=== PATIENT | male | born 1940 | race Caucasian/White ===

== ENCOUNTER 2017-03-15 17:47 | Inpatient (IN) | payer MEDICARE, BC ==
[~2017-03-15] VITALS: Ht 172.7 cm; Wt 72.2 kg
[2017-03-15] VITALS (8 sets, daily range): BP systolic 95–115; BP diastolic 46–53; PULSE 63–76; RESP 12–18; TEMP 98–99.2; O2SAT 93–100
--- NOTE | 2017-03-15 18:34 | RADRPT ---
EXAM DATE/TIME: 03/15/2017 18:02 [facility] COMPARISON: No previous studies available for comparison. INDICATIONS : Syncopal episode. MEDICAL HISTORY : None. SURGICAL HISTORY : CABG. ENCOUNTER: Initial ACUITY: 1 day PAIN SCORE: Non-responsive. LOCATION: Bilateral chest FINDINGS: A single view of the chest demonstrates the lungs to be symmetrically aerated without evidence of mas s, infiltrate or effusion. The cardiomediastinal contours are unremarkable. There is evidence of pre vious cardiothoracic surgery. Osseous structures are intact. There are degenerative changes especiall y of the right shoulder joint. CONCLUSION: No acute disease. Chadd Vásquez MD on March 15, 2017 at 18:32 Board Certified Radiologist. This report was verified electronically.
[2017-03-15] MEDS ORDERED: SUCR1TAB PO (18:37)
[2017-03-15] MEDS ORDERED: MIRTA15 PO (18:37)
[2017-03-15] MEDS ORDERED: ALBUAER3 INH (18:37)
[2017-03-15] MEDS ORDERED: LISI2.5T3 PO (18:37)
[2017-03-15] MEDS ORDERED: SERT25TA83 PO (18:37)
[2017-03-15] MEDS ORDERED: SERT-132 PO (18:37)
[2017-03-15] MEDS ORDERED: HYDR1CAP30 PO (18:37)
[2017-03-15] MEDS ORDERED: LOPE2CAP PO (18:37)
[2017-03-15] MEDS ORDERED: FERR325C PO (18:37)
[2017-03-15] MEDS ORDERED: LEVO50TA4 PO (18:37)
[2017-03-15] MEDS ORDERED: CARV3.12 PO (18:37)
[2017-03-15] MEDS ORDERED: RANI150T PO (18:37)
[2017-03-15] MEDS ORDERED: FURO1TAB60 PO (18:37)
[2017-03-15] MEDS ORDERED: WARF-60 PO (18:37)
[2017-03-15] MEDS ORDERED: DAILTAB PO (18:37)
[2017-03-15] MEDS ORDERED: IPRASOL INH (18:37)
[2017-03-15] MEDS ORDERED: POTA-163 PO (18:37)
--- NOTE | 2017-03-15 18:38 | RADRPT ---
EXAM DATE/TIME: 03/15/2017 18:21 [facility] COMPARISON: No previous studies available for comparison. INDICATIONS : Generalized weakness. RADIATION DOSE: 61.70 CTDIvol (mGy) ; Patient motion MEDICAL HISTORY : None SURGICAL HISTORY : None. ENCOUNTER: Initial ACUITY: 1 day PAIN SCALE: 0/10 LOCATION: chest TECHNIQUE: Multiple contiguous axial images were obtained of the head. Using automated exposure control and adj ustment of the mA and/or kV according to patient size, radiation dose was kept as low as reasonably a chievable to obtain optimal diagnostic quality images. DICOM format image data is available electro nically for review and comparison. FINDINGS: CEREBRUM: The ventricles are normal for age. There is bilateral cortical atrophy. 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 No evidence of midline shift, mass lesion, hemorrhage or acute infarction. No ex tra-axial fluid collections are seen. POSTERIOR FOSSA: The cerebellum and brainstem are intact. The 4th ventricle is midline. The cerebellopontine angle i s unremarkable. EXTRACRANIAL: The visualized portion of the orbits is intact. SKULL: The calvaria is intact. No evidence of skull fracture. CONCLUSION: 1. No acute intracranial hemorrhage. 2. 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 3. Bilateral cortical atrophy. Chadd Vásquez MD on March 15, 2017 at 18:35 Board Certified Radiologist. This report was verified electronically.
[2017-03-15 18:39] LABS: AUTOMATED NEUTROPHIL # 13.2 TH/MM3 (1.8-7.7); BASOPHIL # 0.1 TH/MM3 (0-0.2); BASOPHIL % 0.9 % (0.0-2.0); EOSINOPHIL % 0.1 % (0.0-4.0); LYMPH % 8.3 % (9.0-44.0); LYMPHOCYTE # 1.3 TH/MM3 (1.0-4.8); MEAN CELL VOLUME 86.4 FL (80.0-100.0); MEAN CORPUSCULAR HEMOGLOBIN 28.9 PG (27.0-34.0); MEAN CORPUSCULAR HGB CONC 33.5 % (32.0-36.0); MONO % 5.2 % (0.0-8.0); NEUT % 85.5 % (16.0-70.0); PLATELET COUNT 195 TH/MM3 (150-450); RED BLOOD COUNT 1.77 MIL/MM3 (4.50-5.90); RED CELL DISTRIBUTION WIDTH 24.1 % (11.6-17.2); WHITE BLOOD COUNT 15.4 TH/MM3 (4.0-11.0)
[2017-03-15 18:41] LABS: CHLORIDE 109 MEQ/L (98-107); POTASSIUM 4.3 MEQ/L (3.5-5.1); SODIUM (NA) 141 MEQ/L (136-145)
[2017-03-15 18:43] LABS: HEMATOCRIT 15.3 % (39.0-51.0); HEMO FLAGS DIFF FINAL
[2017-03-15 18:44] LABS: ANION GAP 11 MEQ/L (5-15); BICARBONATE 20.7 MEQ/L (21.0-32.0)
[2017-03-15 18:45] LABS: BLOOD UREA NITROGEN 105 MG/DL (7-18)
[2017-03-15 18:47] LABS: ALT (GPT) 16 U/L (12-78)
[2017-03-15 18:48] LABS: AST (GOT) 15 U/L (15-37); GLOMERULAR FILTRATION RATE 21 ML/MIN (>89)
[2017-03-15 18:49] LABS: TOTAL BILIRUBIN ADULT 0.3 MG/DL (0.2-1.0)
[2017-03-15 18:50] LABS: ALKALINE PHOSPHATASE 68 U/L (45-117)
[2017-03-15 19:00] LABS: CREATINE KINASE 73 U/L (39-308)
[2017-03-15] MEDS ORDERED: SODIUM CHLORID 0.9% 500 ML INJ 500 ML IV ONE (19:00)
[2017-03-15] MEDS ORDERED: PHYTONADIONE 10 MG/ML VIAL SQ ONE (19:00)
[2017-03-15] MEDS ORDERED: SODIUM CHLOR 0.9% 250 ML INJ 250 ML IV ONE ×2 (19:00→19:45)
[2017-03-15 19:18] LABS: APTT (PATIENT) 79.1 SEC (24.3-30.1)
[2017-03-15 19:21] LABS: PROTHROMBIN TIME - PATIENT GREATER THAN 180.0 SEC (9.8-11.6)
[2017-03-15 19:22] LABS: INTERNATIONAL NORMALIZED RATIO 17.1 RATIO
[2017-03-15 19:58] LABS: BLOOD, URINE NEG (NEG); GLUCOSE,URINE NEG (NEG); KETONE, URINE NEG (NEG); NITRITE,URINE NEG (NEG)
[2017-03-15 20:05] LABS: METHOD OF COLLECTION CATH; URINE COLOR YELLOW (YELLW/STRAW)
[2017-03-15 20:13] LABS: MUCUS URINE OCC /lpf (OCC)
[2017-03-15 20:14] LABS: COMMENT (UR) CULT NOT INDICATED; CULTURE IF INDICATED CULT NOT INDICATED; RBC, URINE 0-3 /hpf (0-3); SQUAMOUS EPITHELIAL CELL URINE 0-5 /hpf (0-5)
[2017-03-15] MEDS ORDERED: PROTHROMBIN COMPLEX IV ONE (20:30)
--- NOTE | 2017-03-15 21:03 | PD ---
HPI Chief Complaint: General Weakness Time Seen by Provider: 17:53 Travel History International Travel<30 days: No Contact w/Intl Traveler<30days: No Traveled to known affect area: No History of Present Illness HPI Patient is a 76-year-old male who is brought in from alf due to diarrhea and generalized weakness. Patient does have some underlying dementia, but is able to say that he is just feeling overall weak. He has been having some diarrhea. Denies any pain at this time. He says he does not know if he has been taking any antibiotics. He denies any abdominal pain. He has not had any nausea or vomiting. He is unable to provide any more history. PFSH Past Medical History Anemia: Yes Depression: Yes Cardiovascular Problems: Yes (HEART FAILURE) Congestive Heart Failure: Yes COPD: Yes GERD: Yes Hypertension: Yes Respiratory: Yes (PE) Thyroid Disease: Yes Tetanus Vaccination: Unknown Past Surgical History Surgical History: Unable to Obtain Social History Tobacco Use: No Allergies-Medications (Allergen,Severity, Reaction): Coded Allergies: No Known Allergies (Unverified , 03/15/17) Reported Meds & Prescriptions Reported Meds & Active Scripts Active Reported Hydroxyzine Pamoate 25 Mg Cap 25 Mg PO Q6H PRN Loperamide (Loperamide HCl) 2 Mg Cap 2 Mg PO DIRECTED PRN One capsule after each loose stool. Not to exceed 8 capsules per day. Proair Hfa 8.5 GM Inh (Albuterol Sulfate) 90 Mcg/Act Aer 1 Puff INH Q4H PRN 108 mcg/actuation Lasix (Furosemide) 40 Mg Tab 40 Mg PO DAILY Levothyroxine (Levothyroxine Sodium) 50 Mcg Tab 50 Mcg PO DAILY Potassium Chloride ER (Potassium Chloride) 20 Meq Tab 20 Meq PO DAILY Lisinopril 2.5 Mg Tab 2.5 Mg PO DAILY Ranitidine (Ranitidine HCl) 150 Mg Tab 150 Mg PO DAILY Sucralfate 1 Gram Tab 1 Gm PO BID on empty stomach Sertraline (Sertraline HCl) 50 Mg Tab 50 Mg PO DAILY Daily-Juan Carlos/Iron/Beta-Antonio (Multiple Vitamins W/ Iron) 1 Tab Tab 1 Tab PO DAILY Sertraline (Sertraline HCl) 25 Mg Tab 25 Mg PO DAILY Carvedilol 3.125 Mg Tab 3.125 Mg PO BID Duoneb (Ipratropium-Albuterol Neb) 0.5-2.5 Mg/3 Ml Neb 1 Nebule INH Q12HR Warfarin 6 Mg Tab 6 Mg PO DAILY Mirtazapine 15 Mg Tab 15 Mg PO HS Iron (Ferrous Sulfate) 325 Mg Cap 325 Mg PO DAILY Review of Systems ROS Limitations: Clinical Condition General / Constitutional: No: Fever Cardiovascular: No: Chest Pain or Discomfort Respiratory: No: Shortness of Breath Gastrointestinal: Positive: Diarrhea, No: Abdominal Pain Musculoskeletal: No: Pain Neurologic: Positive: Weakness Physical Exam Narrative GENERAL: Awake and alert, in no acute distress. SKIN: Focused skin assessment warm/dry. Appears very pale. HEAD: Atraumatic. Normocephalic. EYES: Pupils equal and round. No scleral icterus. Extraocular movements intact. ENT: Mucous membranes pink and moist. NECK: Trachea midline. No JVD. CARDIOVASCULAR: Regular rate and rhythm. No murmur appreciated. RESPIRATORY: No accessory muscle use. Clear to auscultation. Breath sounds equal bilaterally. GASTROINTESTINAL: Abdomen soft, non-tender, nondistended. MUSCULOSKELETAL: No obvious deformities. No clubbing. No cyanosis. No edema. NEUROLOGICAL: Awake and alert. No obvious cranial nerve deficits. Motor grossly within normal limits. Normal speech. PSYCHIATRIC: Appropriate mood and affect; insight and judgment normal. Data Data Last Documented VS Vital Signs Date Time Temp Pulse Resp B/P (MAP) Pulse Ox O2 Delivery O2 Flow Rate FiO2 03/15/17 18:41 63 14 95/46 (62) 100 Nasal Cannula 2.00 03/15/17 17:58 98.0 Orders Orders Electrocardiogram (03/15/17 18:00) Complete Blood Count With Diff (03/15/17 18:00) Comprehensive Metabolic Panel (03/15/17 18:00) Creatine Kinase (Cpk) (03/15/17 18:00) Prothrombin Time / Inr (Pt) (03/15/17 18:00) Act Partial Throm Time (Ptt) (03/15/17 18:00) Troponin I (03/15/17 18:00) Thyroid Stimulating Hormone (03/15/17 18:00) Urinalysis - C+S If Indicated (03/15/17 18:00) Chest, Single Ap (03/15/17 18:00) Ct Brain W/O Iv Contrast(Rout) (03/15/17 18:00) Blood Glucose (03/15/17 18:00) Ecg Monitoring (03/15/17 18:00) Iv Access Insert/Monitor (03/15/17 18:00) Oximetry (03/15/17 18:00) C Diff Toxin Pcr (03/15/17 18:00) Red Blood Cells (Rbc) (03/15/17 18:48) Blood Product Administration .UPON TRANSFUSION (03/15/17 18:48) Sodium Chlor 0.9% 250 Ml Inj (Ns 250 Ml (03/15/17 19:00) Phytonadione Inj (Vitamin K Inj) (03/15/17 19:00) Type And Screen (03/15/17 18:48) Urinary Catheter Management ASHISH.Q8H (03/15/17 18:56) Sodium Chlorid 0.9% 500 Ml Inj (Ns 500 M (03/15/17 19:00) Prothrombin Complex Conc Inj (Kcentra In (03/15/17 20:30) Fresh Frozen Plasma (Ffp) (03/15/17 19:40) Blood Product Administration .UPON TRANSFUSION (03/15/17 19:40) Sodium Chlor 0.9% 250 Ml Inj (Ns 250 Ml (03/15/17 19:45) Admit Order (Ed Use Only) (03/15/17 ) Labs Laboratory Tests Test 03/15/17 18:10 03/15/17 19:45 White Blood Count 15.4 TH/MM3 Red Blood Count 1.77 MIL/MM3 Hemoglobin 5.1 GM/DL Hematocrit 15.3 % Mean Corpuscular Volume 86.4 FL Mean Corpuscular Hemoglobin 28.9 PG Mean Corpuscular Hemoglobin Concent 33.5 % Red Cell Distribution Width 24.1 % Platelet Count 195 TH/MM3 Mean Platelet Volume 8.4 FL Neutrophils (%) (Auto) 85.5 % Lymphocytes (%) (Auto) 8.3 % Monocytes (%) (Auto) 5.2 % Eosinophils (%) (Auto) 0.1 % Basophils (%) (Auto) 0.9 % Neutrophils # (Auto) 13.2 TH/MM3 Lymphocytes # (Auto) 1.3 TH/MM3 Monocytes # (Auto) 0.8 TH/MM3 Eosinophils # (Auto) 0.0 TH/MM3 Basophils # (Auto) 0.1 TH/MM3 CBC Comment DIFF FINAL Differential Comment Prothrombin Time GREATER THAN 180.0 SEC Prothromb Time International Ratio 17.1 RATIO Activated Partial Thromboplast Time 79.1 SEC Blood Urea Nitrogen 105 MG/DL Creatinine 2.90 MG/DL Random Glucose 201 MG/DL Total Protein 5.9 GM/DL Albumin 2.9 GM/DL Calcium Level 7.8 MG/DL Alkaline Phosphatase 68 U/L Aspartate Amino Transf (AST/SGOT) 15 U/L Alanine Aminotransferase (ALT/SGPT) 16 U/L Total Bilirubin 0.3 MG/DL Sodium Level 141 MEQ/L Potassium Level 4.3 MEQ/L Chloride Level 109 MEQ/L Carbon Dioxide Level 20.7 MEQ/L Anion Gap 11 MEQ/L Estimat Glomerular Filtration Rate 21 ML/MIN Total Creatine Kinase 73 U/L Troponin I 1.65 NG/ML Thyroid Stimulating Hormone 3rd Gen 3.480 uIU/ML Urine Collection Type CATH Urine Color YELLOW Urine Turbidity SLIGHT Urine pH 5.0 Urine Specific [place] 1.012 Urine Protein NEG mg/dL Urine Glucose (UA) NEG mg/dL Urine Ketones NEG mg/dL Urine Occult Blood NEG Urine Nitrite NEG Urine Bilirubin NEG Urine Leukocyte Esterase NEG Urine RBC 0-3 /hpf Urine Squamous Epithelial Cells 0-5 /hpf Urine Amorphous Sediment MOD Urine Hyaline Casts 3-5 /lpf Urine Mucus OCC /lpf Microscopic Urinalysis Comment CULT NOT INDICATED MDM Medical Decision Making Medical Screen Exam Complete: Yes Emergency Medical Condition: Yes Interpretation(s) ECG shows normal sinus rhythm at 63. There is a isolated ST depression in lead V3. T-wave inversions in lead V4- V6. Differential Diagnosis Anemia versus ACS versus infection versus UTI versus dehydration versus electrolyte abnormality Narrative Course Patient is a 76-year-old male who comes in due to weakness and diarrhea. Exam shows very pale patient. Patient is noted to have dark tarry stools. These are positive for occult blood. IV established, labs sent. Labs show a hemoglobin of 5.1. INR is greater than 17. BUS patient is 105 with a creatinine of 2.9. Patient is very clearly dehydrated and coagulopathy. Patient transfused 2 units of packed red blood cells. Given a unit of FFP. Given vitamin K. Given Kcentra. I spoke with Dr. Brooke of hematology who agrees with this plan. Patient also noted to have a troponin of 1.65. I spoke with Dr. Cardoza of cardiology who advises no intervention at this time. Patient given a bolus of 500 ML's of fluid. He'll be admitted to the ICU. Critical Care Narrative Aggregate critical care time was 35 minutes. Time to perform other separately billable procedures was not included in the critical care time. My time did not include minutes spent treating any other patients simultaneously or on activities that did not directly contribute to the patient's treatment. The services I provided to this patient were to treat and/or prevent clinically significant deterioration that could result in: Serious illness or I provided critical care services requiring my management, as noted below: Chart data review, documentation time, medication orders and management, vital sign assessments/reviewing monitor data, ordering and reviewing lab tests, ordering and interpreting/reviewing x-rays and diagnostic studies, care of the patient and discussion of the patient with the admitting physicians. Diagnosis Primary Impression: GI bleed Qualified Codes: K92.2 - Gastrointestinal hemorrhage, unspecified Additional Impressions: Coagulopathy NSTEMI (non-ST elevated myocardial infarction) Anemia Qualified Codes: D62 - Acute posthemorrhagic anemia Admitting Information Admitting Physician Requests: Admit Condition: Critical Claudia Cardoza MD Mar 15, 2017 21:03
--- NOTE | 2017-03-15 23:21 | HHI.HP ---
[facility] Service Critical Care Medicine Primary Care Physician Dotty James Holcomb Admission Diagnosis Anemia, GI bleed, coagulopathy, NSTEMI Diagnosis: Travel History International Travel<30 Days: No Contact w/Intl Traveler <30 Da: No Traveled to Known Affected Are: No History of Present Illness 76-year-old male who is brought in from senior care due to diarrhea and generalized weakness. Patient does have some underlying dementia, but is able to say that he is just feeling overall weak. He has been having some diarrhea. Denies any pain at this time. He says he does not know if he has been taking any antibiotics. He denies any abdominal pain. He has not had any nausea or vomiting. Patient denies melanotic or bloody stool however in the emergency department he was noticed to have a tarry black stool. His hemoglobin was found to be 5 and his INR more than 17. He has received FFP's, Kcentra and was started on blood transfusions. Review of Systems Constitutional: COMPLAINS OF: Fatigue, Dizziness, DENIES: Diaphoretic episodes , Fever, Weight gain, Weight loss, Chills, Change in appetite, Night Sweats Endocrine: DENIES: Heat/cold intolerance, Polydipsia, Polyuria, Polyphagia Eyes: DENIES: Blurred vision, Diplopia, Eye inflammation, Eye pain, Vision loss , Photosensitivity, Double Vision Ears, nose, mouth, throat: DENIES: Tinnitus, Hearing loss, Vertigo, Nasal discharge, Oral lesions, Throat pain, Hoarseness, Ear Pain, Running Nose, Epistaxis, Sinus Pain, Toothache, Odynophagia Respiratory: DENIES: Apneas, Cough, Snoring, Wheezing, Hemoptysis, Sputum production, Shortness of breath Cardiovascular: DENIES: Chest pain, Palpitations, Syncope, Dyspnea on Exertion , PND, Lower Extremity Edema, Orthopnea, Claudication Gastrointestinal: DENIES: Abdominal pain, Black stools, Bloody stools, Constipation, Diarrhea, Nausea, Vomiting, Difficulty Swallowing, Anorexia Genitourinary: DENIES: Sexual dysfunction, Urinary frequency, Urinary incontinence, Urgency, Hematuria, Dysuria, Nocturia, Penile Discharge, Testicular Pain, Testicular Swelling Musculoskeletal: DENIES: Joint pain, Muscle aches, Stiffness, Joint Swelling, Back pain, Neck pain Integumentary: DENIES: Abnormal pigmentation, Nail changes, Pruritus, Rash Hematologic/lymphatic: DENIES: Bruising, Lymphadenopathy Immunologic/allergic: DENIES: Eczema, Urticaria Neurologic: COMPLAINS OF: Poor Balance, DENIES: Abnormal gait, Headache, Localized weakness, Paresthesias, Seizures, Speech Problems, Tremor Psychiatric: DENIES: Anxiety, Confusion, Mood changes, Depression, Hallucinations, Agitation, Suicidal Ideation, Homicidal Ideation, Delusions Past Family Social History Allergies: Coded Allergies: No Known Allergies (Unverified , 03/15/17) Past Medical History Anemia Depression Congestive Heart Failure COPD GERD Hypertension History of pulmonary embolism on Coumadin Thyroid Disease Past Surgical History Unobtainable, poor historian Reported Medications Reported Meds & Active Scripts Active Reported Hydroxyzine Pamoate 25 Mg Cap 25 Mg PO Q6H PRN Loperamide (Loperamide HCl) 2 Mg Cap 2 Mg PO DIRECTED PRN One capsule after each loose stool. Not to exceed 8 capsules per day. Proair Hfa 8.5 GM Inh (Albuterol Sulfate) 90 Mcg/Act Aer 1 Puff INH Q4H PRN 108 mcg/actuation Lasix (Furosemide) 40 Mg Tab 40 Mg PO DAILY Levothyroxine (Levothyroxine Sodium) 50 Mcg Tab 50 Mcg PO DAILY Potassium Chloride ER (Potassium Chloride) 20 Meq Tab 20 Meq PO DAILY Lisinopril 2.5 Mg Tab 2.5 Mg PO DAILY Ranitidine (Ranitidine HCl) 150 Mg Tab 150 Mg PO DAILY Sucralfate 1 Gram Tab 1 Gm PO BID on empty stomach Sertraline (Sertraline HCl) 50 Mg Tab 50 Mg PO DAILY Daily-Juan Carlos/Iron/Beta-Antonio (Multiple Vitamins W/ Iron) 1 Tab Tab 1 Tab PO DAILY Sertraline (Sertraline HCl) 25 Mg Tab 25 Mg PO DAILY Carvedilol 3.125 Mg Tab 3.125 Mg PO BID Duoneb (Ipratropium-Albuterol Neb) 0.5-2.5 Mg/3 Ml Neb 1 Nebule INH Q12HR Warfarin 6 Mg Tab 6 Mg PO DAILY Mirtazapine 15 Mg Tab 15 Mg PO HS Iron (Ferrous Sulfate) 325 Mg Cap 325 Mg PO DAILY Active Ordered Medications Current Medications Medications (Trade) Dose Ordered Sig/Teodoro Route PRN Reason Start Time Stop Time Status Last Admin Dose Admin Sodium Chloride 250 ml @ 15 mls/hr ONCE ONCE IV 03/15/17 19:00 03/16/17 11:39 Sodium Chloride 250 ml @ 15 mls/hr ONCE ONCE IV 03/15/17 19:45 03/16/17 12:24 Sodium Chloride 1,000 ml @ 84 mls/hr [id number] IV 03/15/17 23:24 03/16/17 01:16 Sodium Chloride (NS Flush) 2 ml UNSCH PRN .XX FLUSH AFTER USING IV ACCESS 03/15/17 23:30 Sodium Chloride (NS Flush) 2 ml BID .XX 03/16/17 09:00 Acetaminophen (Tylenol) 650 mg Q6H PRN PO PAIN 1-10 AND/OR FEVER >101F 03/15/17 23:30 Morphine Sulfate (Morphine Inj) 2 mg Q2H PRN IV PAIN SCALE 6 TO 10 03/15/17 23:30 Pantoprazole Sodium (Protonix Inj) 40 mg Q12H IV 03/15/17 23:30 03/16/17 01:16 Ondansetron HCl (Zofran Inj) 4 mg Q6H PRN IV NAUSEA OR VOMITING 03/15/17 23:30 Zolpidem Tartrate (Ambien) 5 mg HS PRN PO INSOMNIA 03/15/17 23:30 Albuterol/ Ipratropium (Duoneb Neb) 1 ampule Q2HR NEB PRN INH WHEEZING 03/15/17 23:30 Miscellaneous Information 1 [id number] XX 03/15/17 23:30 Chlorhexidine Gluconate (Chlorhexidine 2% Cloth) 3 pack Taper DAILY@04 TOP 03/16/17 04:00 03/12/18 03:59 03/16/17 01:17 Chlorhexidine Gluconate (Chlorhexidine 2% Cloth) 3 pack UNSCH PRN TOP HYGIENIC CARE 03/15/17 23:30 Senna/Docusate Sodium (Andria-Colace) 1 tab BID PO 03/16/17 09:00 Magnesium Hydroxide (Milk Of Magnesia Liq) 30 ml Q12H PRN PO MILD - MODERATE CONSTIPATION 03/15/17 23:30 Sennosides (Senokot) 17.2 mg Q12H PRN PO MODERATE - SEVERE CONSTIPATION 03/15/17 23:30 Bisacodyl (Dulcolax Supp) 10 mg DAILY PRN RECTAL SEVERE CONSITIPATION 03/15/17 23:30 Lactulose (Lactulose Liq) 30 ml DAILY PRN PO SEVERE CONSITIPATION 03/15/17 23:30 Family History Unobtainable Social History No history of tobacco alcohol or illicit drug abuse Physical Exam Vital Signs Vital Signs Date Time Temp Pulse Resp B/P (MAP) Pulse Ox O2 Delivery O2 Flow Rate FiO2 03/15/17 22:45 03/15/17 22:32 99.2 72 18 107/49 (68) 100 Nasal Cannula 4.00 03/15/17 22:08 72 16 106/49 (68) 100 Nasal Cannula 4.00 03/15/17 20:41 76 17 102/48 (66) 100 Nasal Cannula 4.00 03/15/17 18:41 63 14 95/46 (62) 100 Nasal Cannula 2.00 03/15/17 18:28 (73) 03/15/17 18:08 93 Nasal Cannula 2.00 03/15/17 17:58 98.0 65 12 115/52 (73) 94 Nasal Cannula 2.00 Physical Exam GENERAL: Elderly man extremely pale, confused and fatigued SKIN: Warm and dry. HEAD: Normocephalic. EYES: No scleral icterus. No injection or drainage. NECK: Supple, trachea midline. No JVD or lymphadenopathy. CARDIOVASCULAR: Regular rate and rhythm without murmurs, gallops, or rubs. RESPIRATORY: Breath sounds equal bilaterally. No accessory muscle use. GASTROINTESTINAL: Abdomen soft, non-tender, nondistended. MUSCULOSKELETAL: No cyanosis, or edema. BACK: Nontender without obvious deformity. NEURO EXAM: GCS: M6 V4 E4 Mental Status: The patient is alert with slow but normal speech. Cranial Nerves: Visual acuity intact bilaterally. Visual bruner normal in all quadrants. Pupils are round, reactive to light. Extraocular movements are intact without ptosis. Hearing is diminished. Voice is normal. Tongue protrudes midline and moves symmetrically. Reflexes: Biceps, patellar, and Achilles are 2/4 bilaterally. No clonus. Sensation: Sensation is intact bilaterally to pain and light touch. Two-point discrimination is intact. Motor: Good muscle tone. Strength is 5/5 bilaterally. Laboratory Laboratory Tests Test 03/15/17 18:10 03/15/17 19:45 03/15/17 20:31 White Blood Count 15.4 Red Blood Count 1.77 Hemoglobin 5.1 Hematocrit 15.3 Mean Corpuscular Volume 86.4 Mean Corpuscular Hemoglobin 28.9 Mean Corpuscular Hemoglobin Concent 33.5 Red Cell Distribution Width 24.1 Platelet Count 195 Mean Platelet Volume 8.4 Neutrophils (%) (Auto) 85.5 Lymphocytes (%) (Auto) 8.3 Monocytes (%) (Auto) 5.2 Eosinophils (%) (Auto) 0.1 Basophils (%) (Auto) 0.9 Neutrophils # (Auto) 13.2 Lymphocytes # (Auto) 1.3 Monocytes # (Auto) 0.8 Eosinophils # (Auto) 0.0 Basophils # (Auto) 0.1 CBC Comment DIFF FINAL Differential Comment Prothrombin Time GREATER THAN 180.0 Prothromb Time International Ratio 17.1 Activated Partial Thromboplast Time 79.1 Blood Urea Nitrogen 105 Creatinine 2.90 Random Glucose 201 Total Protein 5.9 Albumin 2.9 Calcium Level 7.8 Alkaline Phosphatase 68 Aspartate Amino Transf (AST/SGOT) 15 Alanine Aminotransferase (ALT/SGPT) 16 Total Bilirubin 0.3 Sodium Level 141 Potassium Level 4.3 Chloride Level 109 Carbon Dioxide Level 20.7 Anion Gap 11 Estimat Glomerular Filtration Rate 21 Total Creatine Kinase 73 Troponin I 1.65 Thyroid Stimulating Hormone 3rd Gen 3.480 Urine Collection Type CATH Urine Color YELLOW Urine Turbidity SLIGHT Urine pH 5.0 Urine Specific [place] 1.012 Urine Protein NEG Urine Glucose (UA) NEG Urine Ketones NEG Urine Occult Blood NEG Urine Nitrite NEG Urine Bilirubin NEG Urine Leukocyte Esterase NEG Urine RBC 0-3 Urine Squamous Epithelial Cells 0-5 Urine Amorphous Sediment MOD Urine Hyaline Casts 3-5 Urine Mucus OCC Microscopic Urinalysis Comment CULT NOT INDICATED Result Diagram: 03/15/17 1810 03/15/17 1810 Imaging Last [address] 03/15/17 1800 Signed Impressions: Service Date/Time: Wednesday, March 15, 2017 18:21 - CONCLUSION: 1. No acute intracranial hemorrhage. 2. 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 3. Bilateral cortical atrophy. Chadd Vásquez MD Chest X-Ray 03/15/17 1800 Signed Impressions: Service Date/Time: Wednesday, March 15, 2017 18:02 - CONCLUSION: No acute disease. Chadd Vásquez MD Capmilleri VTE Risk Assessment Caprini VTE Risk Assessment: Mod/High Risk (score >= 2) VTE Pharm Contraindication: Hemorrhage Caprini Risk Assessment Model Point Value = 1 Point Value = 2 Point Value = 3 Point Value = 5 Age 41-60 Minor surgery BMI > 25 kg/m2 Swollen legs Varicose veins or History of unexplained or recurrent spontaneous Oral contraceptives or hormone replacement Sepsis (< 1 month) Serious lung disease, including pneumonia (< 1 month) Abnormal pulmonary function Acute myocardial infarction Congestive heart failure (< 1 month) History of inflammatory bowel disease Medical patient at bed rest Age 61-74 Arthroscopic surgery Major open surgery (> 45 min) Laparoscopic surgery (> 45 min) Malignancy Confined to bed (> 72 hours) Immobilizing plaster cast Central venous access Age >= 75 History of VTE Family history of VTE Factor V Leiden Prothrombin [id number] Lupus anticoagulant Anticardiolipin antibodies Elevated serum homocysteine Heparin-induced thrombocytopenia Other congenital or acquired thrombophilia Stroke (< 1 month) Elective arthroplasty Hip, pelvis, or leg fracture Acute spinal cord injury (< 1 month) Prophylaxis Regimen Total Risk Factor Score Risk Level Prophylaxis Regimen 0-1 Low Early ambulation 2 Moderate Order ONE of the following: *Sequential Compression Device (SCD) *Heparin 5000 units SQ BID 3-4 Higher Order ONE of the following medications: *Heparin 5000 units SQ TID *Enoxaparin/Lovenox 40 mg SQ daily (WT < 150 kg, CrCl > 30 mL/min) *Enoxaparin/Lovenox 30 mg SQ daily (WT < 150 kg, CrCl > 10-29 mL/min) *Enoxaparin/Lovenox 30 mg SQ BID (WT < 150 kg, CrCl > 30 mL/min) AND/OR *Sequential Compression Device (SCD) 5 or more Highest Order ONE of the following medications: *Heparin 5000 units SQ TID (Preferred with Epidurals) *Enoxaparin/Lovenox 40 mg SQ daily (WT < 150 kg, CrCl > 30 mL/min) *Enoxaparin/Lovenox 30 mg SQ daily (WT < 150 kg, CrCl > 10-29 mL/min) *Enoxaparin/Lovenox 30 mg SQ BID (WT < 150 kg, CrCl > 30 mL/min) AND *Sequential Compression Device (SCD) Assessment and Plan Assessment and Plan Anemia - Blood loss - GI bleed? - Supratherapeutic INR - Transfuse 4 units of PRBC - Received Kcentra in the ED - Received FFP's - Monitor trend GI bleed - Treat underlying supratherapeutic INR - GI consult - Protonix IV twice a day Elevated troponin - Due to severe anemia - Not a candidate for anticoagulation due to acute bleed Congestive Heart Failure - No exacerbation - BP control - I's and O COPD - DuoNeb's when necessary and scheduled - No exacerbation - No weaning of steroids GERD - Protonix IV twice a day Thyroid Disease - Levothyroxine DVT GI prophylaxis - Teds SCDs - No pharmacological DVT prophylaxis due to acute GI bleed - Protonix IV twice a day Critical Care: The total critical care time was 35 minutes. Time to perform other separately billable procedures was not included in the critical care time. Anthony Persaud MD Mar 15, 2017 23:21
[2017-03-15] MEDS ORDERED: CHLORHEXIDINE GLUCONATE 2 % 1 PACK (2 CLOTHS) TOP PRN (23:30)
[2017-03-15] MEDS ORDERED: SENNOSIDES 8.6 MG TAB PO PRN (23:30)
[2017-03-15] MEDS ORDERED: MAGNESIUM HYDROXIDE SUSP 30 ML CUP PO PRN (23:30)
[2017-03-15] MEDS ORDERED: PANTOPRAZOLE SODIUM 40 MG VIAL IV SCH (23:30)
[2017-03-15] MEDS ORDERED: MORPHINE SULFATE 4 MG/ML INJ IV PRN (23:30)
[2017-03-15] MEDS ORDERED: ZOLPIDEM TARTRATE 5 MG TAB PO PRN (23:30)
[2017-03-15] MEDS ORDERED: RESP: ALBUTEROL 2.5 MG/IPRATROPIUM 0.5 MG NEB (PRN) INH (23:30)
[2017-03-15] MEDS ORDERED: BISACODYL 10 MG SUPP RECTAL PRN (23:30)
[2017-03-15] MEDS ORDERED: ACETAMINOPHEN 325 MG TAB PO PRN (23:30)
[2017-03-15] MEDS ORDERED: ONDANSETRON HCL 4 MG/2 ML VIAL IV PRN (23:30)
[2017-03-15] MEDS ORDERED: SODIUM CHLORIDE 0.9% FLUSH 10 ML FLUSH PRN (23:30)
[2017-03-15] MEDS ORDERED: LACTULOSE SYRUP 20 GM/30 ML CUP PO PRN (23:30)
[2017-03-15] MEDS ORDERED: MISCELLANEOUS NURSING INFORMATION XX SCH (23:30)
[2017-03-16] VITALS (14 sets, daily range): BP systolic 98–175; BP diastolic 47–104; PULSE 54–87; RESP 13–19; TEMP 97.1–99.1; O2SAT 91–100
[2017-03-16] MEDS: SODIUM CHLOR 0.9% 1000 ML INJ 1,000 ML IV SCH ×3 (01:16→15:43)
[2017-03-16 01:17] LABS: INTERNATIONAL NORMALIZED RATIO 1.7 RATIO; PROTHROMBIN TIME - PATIENT 19.2 SEC (9.8-11.6)
[2017-03-16] MEDS: CHLORHEXIDINE GLUCONATE 2 % 1 PACK (2 CLOTHS) TOP SCH (01:17)
[2017-03-16 02:23] LABS: C. DIFF EPI 027 PRESUMPTIVE NEGATIVE (NEGATIVE)
[2017-03-16] MEDS: LEVOTHYROXINE SODIUM 25 MCG TAB PO SCH (06:03)
[2017-03-16] MEDS: DOCUSATE SODIUM 50 MG/SENNA 8.6 MG TAB PO SCH ×2 (08:34→20:01)
[2017-03-16] MEDS: SODIUM CHLORIDE 0.9% FLUSH 10 ML FLUSH SCH ×2 (08:34→20:05)
--- NOTE | 2017-03-16 09:58 | HHI.CCPN ---
Subjective Remarks/Hospital Course 76-year-old male who is brought in from [facility] due to diarrhea and generalized weakness. Patient does have some underlying dementia, but is able to say that he is just feeling overall weak. He has been having some diarrhea. Denies any pain at this time. He says he does not know if he has been taking any antibiotics. He denies any abdominal pain. He has not had any nausea or vomiting. Patient denies melanotic or bloody stool however in the emergency department he was noticed to have a tarry black stool. His hemoglobin was found to be 5 and his INR more than 17. He has received FFP's, Kcentra and was started on blood transfusions. Subjective 03/16: Status post 3 PRBCs, 1 FFP. A.m. laboratories pending. Still appears pale. Hemodynamically stable. Objective Vital Signs Date Time Temp Pulse Resp B/P (MAP) Pulse Ox O2 Delivery O2 Flow Rate FiO2 03/16/17 07:47 100 Nasal Cannula 2.00 03/16/17 04:00 98.9 87 16 105/75 (85) Intake and Output 03/16/17 03/16/17 03/17/17 08:00 16:00 00:00 Intake Total 2658 ml 275 ml Output Total 650 ml Balance 2008 ml 275 ml Result Diagram: 03/15/17 1810 03/15/17 1810 Imaging Last Impressions Head CT 03/15/17 1800 Signed Impressions: Service Date/Time: Wednesday, March 15, 2017 18:21 - CONCLUSION: 1. No acute intracranial hemorrhage. 2. 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 3. Bilateral cortical atrophy. Chadd Vásquez MD Chest X-Ray 03/15/17 1800 Signed Impressions: Service Date/Time: Wednesday, March 15, 2017 18:02 - CONCLUSION: No acute disease. Chadd Vásquez MD Objective Remarks GENERAL: 68-year-old male, critically ill currently resting in bed in no acute distress SKIN: Pale and dry. No rash. Well-perfused. HEAD: Normocephalic. EYES: No scleral icterus. No injection or drainage. NECK: Supple, trachea midline. No JVD or lymphadenopathy. CARDIOVASCULAR: Regular rate and rhythm without murmurs, gallops, or rubs. RESPIRATORY: Breath sounds equal bilaterally. No accessory muscle use. GASTROINTESTINAL: Abdomen soft, slightly tender to palpation epigastric region. hypoactive bowel sounds MUSCULOSKELETAL: 1+ peripheral edema BACK: Nontender without obvious deformity. NEURO EXAM: Cranial nerves II-12 by mouth grossly intact. Slightly weak on the right upper and lower extremity. Normal sensation. A/P Assessment and Plan Neuro/Psych: Dementia disorder NOS Left basal ganglia CVA Depression NOS Holding mirtazapine 15 mg at night. Holding sertraline 75 mg by mouth daily Holding hydroxyazine 25 mg as needed CV: Chronic systolic heart failure Hypertension History of CABG Elevated troponin Likely demand ischemia from low blood volume. Follow-up on echocardiogram. Currently normal saline at 100 cc an hour while nothing by mouth. Holding furosemide 40 mg daily and potassium chloride 20 mEq daily Holding carvedilol 3.125 mg by mouth twice daily in light of GI bleed. Holding lisinopril 2.5 mill grams daily light of GI bleed/acute kidney injury. Resp: History COPD Nasal cannula to maintain saturations greater than equal to 92% Incentive spirometry while awake On albuterol/ipratropium aerosols every 12 hours and nursing along with albuterol inhaler when necessary GI: Gastroesophageal reflux disease Previously on ranitidine 150 mg by mouth twice a day and sucralfate 1 g twice a day : Condom catheter adequate at present. Endo: Hypothyroidism Diabetes mellitus Continue levothyroxine 50 mcg by mouth daily. Follow up on TSH Sliding-scale insulin to maintain euglycemia/low regimen of Novulin R with Accu- Cheks every 6 hours Renal: Acute kidney injury Unknown baseline creatinine. Avoid nephrotoxic drugs. Renal ultrasound ordered. Urine electrolytes/eosinophils ordered. Monitor urine output Accurate I's and O's Heme: Acute blood loss anemia Leukocytosis Supratherapeutic INR secondary to warfarin History of pulmonary embolism Received K Centra 3702 milligrams in ED 1. 10 mg of vitamin K. 1 FFP. Last INR 1.7. Transfused 3 units PRBCs. Repeat hemoglobin pending. Serial hemoglobins GI consultation Holding warfarin 6 mill grams by mouth daily. Previously on iron sulfate 325 mg by mouth daily. ID: Monitor for infection FEN: Replacing electrolytes as clinically indicated MSK: Physical therapy evaluate and treat Access - Utilize peripheral IV. Central line if indicated Prophylaxis - GI - pantoprazole drip - DVT - SCD/pharmacological prophylaxis contraindicated with active bleeding Level III follow-up Hussein Hart MD Mar 16, 2017 09:58
[2017-03-16] MEDS ORDERED: DEXTROSE 50% IN WATER 50 ML VIAL(D50) IV PRN (11:00)
[2017-03-16] MEDS: INSULIN NovoLIN REGULAR SUPPLEMENTAL SCALE SQ SCH ×3 (11:00→20:03)
[2017-03-16] MEDS ORDERED: RESP: ALBUTEROL 2.5 MG/3 ML NEB (PRN) NEB (11:00)
[2017-03-16] MEDS ORDERED: GLUCAGON 1 MG/ML VIAL OTHER PRN (11:00)
[2017-03-16 12:38] LABS: AUTOMATED NEUTROPHIL # 11.5 TH/MM3 (1.8-7.7); BASOPHIL % 0.3 % (0.0-2.0); EOSINOPHIL % 0.1 % (0.0-4.0); HEMATOCRIT 26.4 % (39.0-51.0); HEMO FLAGS DIFF FINAL; LYMPH % 12.4 % (9.0-44.0); LYMPHOCYTE # 1.8 TH/MM3 (1.0-4.8); MEAN CELL VOLUME 88.4 FL (80.0-100.0); MEAN CORPUSCULAR HEMOGLOBIN 29.3 PG (27.0-34.0); MEAN CORPUSCULAR HGB CONC 33.2 % (32.0-36.0); MONO % 9.4 % (0.0-8.0); NEUT % 77.8 % (16.0-70.0); PLATELET COUNT 117 TH/MM3 (150-450); RED BLOOD COUNT 2.99 MIL/MM3 (4.50-5.90); RED CELL DISTRIBUTION WIDTH 17.7 % (11.6-17.2); WHITE BLOOD COUNT 14.8 TH/MM3 (4.0-11.0)
[2017-03-16 12:51] LABS: ALT (GPT) 17 U/L (12-78); ANION GAP 11 MEQ/L (5-15); AST (GOT) 22 U/L (15-37); BICARBONATE 21.8 MEQ/L (21.0-32.0); BLOOD UREA NITROGEN 96 MG/DL (7-18); CHLORIDE 113 MEQ/L (98-107); GLOMERULAR FILTRATION RATE 26 ML/MIN (>89); MAGNESIUM 2.3 MG/DL (1.5-2.5); POTASSIUM 3.6 MEQ/L (3.5-5.1); SODIUM (NA) 146 MEQ/L (136-145)
[2017-03-16 12:55] LABS: ALKALINE PHOSPHATASE 64 U/L (45-117); TOTAL BILIRUBIN ADULT 0.5 MG/DL (0.2-1.0)
[2017-03-16] MEDS: PANTOPRAZOLE INJ 80 MG in SODIUM CHLORIDE 0.9% INJ 100 ML IV SCH ×2 (13:18→22:13)
--- NOTE | 2017-03-16 13:23 | PD.CONS ---
HPI History of Present Illness This is a 76 year old male who was brought from a local nursing facility for generalized weakness and diarrhea. He has a history of dementia and is a poor historian. The patient reports nausea and vomiting "here and there" but denies any recent vomiting. He denies any abdominal pain, black tarry stools or red blood in his stools. However, according to the EMR, he was noted to have a black tarry stool in the emergency room. He was noted to have severe anemia with an HH of 5.1/15.3. He was transfused 4 units of PRBC and his H/H is now 8.8/26.4. He was also noted to have an INR of 17.1 and was given one unit of FFP , Kcentra, and Vitamin K and this is 1.7 now. GI was consulted for further evaluation. As mentioned above, he is a poor historian. He denies taking blood thinners, but according to the EMR, has a history of pulmonary embolism and takes coumadin. The nurse reports that he has not had any nausea/vomiting or any bowel movements on his shift. The patient denies any GI symptoms. He cannot provide any information regarding his diarrhea. He denies any history of peptic ulcer disease. He states he had a colonoscopy a few years ago, but does not recall the findings. Called POA Nephew Ambrocio Adams at [phone] to discuss possible EGD in am- procedure, risks, benefits. There was no answer and therefore I left a message for him to return call to my cell phone. I then called sister Aleena Howard, who states the patient's nephew is the POA and makes all decisions. Will await for nephew to return call. Of note, I did look in our outpatient records, and he has not been seen by our service in the past. (Palak Butcher) [facility] Past Medical History According to EMR: Anemia Depression Congestive heart failure COPD GERD Hypertension History of pulmonary embolism on Coumadin Hypothyroidism Diabetes Coronary artery disease Past Surgical History Reports colonoscopy, cannot provide any other procedures (Palak Butcher) Coded Allergies: No Known Allergies (Unverified , 03/15/17) Medications Allergies Coded Allergies Type Severity Reaction Last Updated Verified No Known Allergies 03/15/17 No Active Scripts Medications Dose Route/Sig Max Daily Dose Days Date Category Dose Instructions Hydroxyzine Pamoate 25 Mg Cap 25 Mg PO Q6H PRN 03/15/17 Reported Loperamide (Loperamide HCl) 2 Mg Cap 2 Mg PO DIRECTED PRN 03/15/17 Reported One capsule after each loose stool. Not to exceed 8 capsules per day. Proair Hfa 8.5 GM Inh (Albuterol Sulfate) 90 Mcg/Act Aer 1 Puff INH Q4H PRN 03/15/17 Reported 108 mcg/actuation Lasix (Furosemide) 40 Mg Tab 40 Mg PO DAILY 03/15/17 Reported Levothyroxine (Levothyroxine Sodium) 50 Mcg Tab 50 Mcg PO DAILY 03/15/17 Reported Potassium Chloride ER (Potassium Chloride) 20 Meq Tab 20 Meq PO DAILY 03/15/17 Reported Lisinopril 2.5 Mg Tab 2.5 Mg PO DAILY 03/15/17 Reported Ranitidine (Ranitidine HCl) 150 Mg Tab 150 Mg PO DAILY 03/15/17 Reported Sucralfate 1 Gram Tab 1 Gm PO BID 03/15/17 Reported on empty stomach Sertraline (Sertraline HCl) 50 Mg Tab 50 Mg PO DAILY 03/15/17 Reported Daily-Juan Carlos/Iron/Beta-Antonio (Multiple Vitamins W/ Iron) 1 Tab Tab 1 Tab PO DAILY 03/15/17 Reported Sertraline (Sertraline HCl) 25 Mg Tab 25 Mg PO DAILY 03/15/17 Reported Carvedilol 3.125 Mg Tab 3.125 Mg PO BID 03/15/17 Reported Duoneb (Ipratropium-Albuterol Neb) 0.5-2.5 Mg/3 Ml Neb 1 Nebule INH Q12HR 03/15/17 Reported Warfarin 6 Mg Tab 6 Mg PO DAILY 03/15/17 Reported Mirtazapine 15 Mg Tab 15 Mg PO HS 03/15/17 Reported Iron (Ferrous Sulfate) 325 Mg Cap 325 Mg PO DAILY 03/15/17 Reported Family History Unable to obtain Social History According to the EMR, no tobacco, etoh, illicit drug use. (Palak Butcher) Review of Systems Constitutional: COMPLAINS OF: Fatigue Gastrointestinal: COMPLAINS OF: Black stools, Diarrhea, Nausea, Vomiting, DENIES: Abdominal pain, Bloody stools, Constipation, Swelling of Abdomen Psychiatric: COMPLAINS OF: Confusion ROS difficult to obtain from patient, poor historian (Palak Butcher) GI Exam Vitals I&O Vital Signs Date Time Temp Pulse Resp B/P (MAP) Pulse Ox O2 Delivery O2 Flow Rate FiO2 03/16/17 12:00 69 03/16/17 12:00 97.2 69 13 111/70 (84) 100 03/16/17 10:00 70 03/16/17 08:00 65 03/16/17 08:00 97.1 65 14 116/54 (74) 100 03/16/17 07:47 100 Nasal Cannula 2.00 03/16/17 04:00 98.9 87 16 105/75 (85) 98 03/16/17 02:01 69 03/16/17 02:01 69 17 109/51 (70) 91 03/16/17 01:45 98.9 71 18 98/47 91 03/16/17 01:00 98.3 61 15 98/47 (64) 100 03/16/17 01:00 61 03/15/17 23:43 100 Nasal Cannula 2.00 03/15/17 22:45 03/15/17 22:32 99.2 72 18 107/49 (68) 100 Nasal Cannula 4.00 03/15/17 22:08 72 16 106/49 (68) 100 Nasal Cannula 4.00 03/15/17 20:41 76 17 102/48 (66) 100 Nasal Cannula 4.00 03/15/17 19:15 98.6 70 17 104/53 (70) 97 Nasal Cannula 4.00 03/15/17 18:41 63 14 95/46 (62) 100 Nasal Cannula 2.00 03/15/17 18:28 (73) 03/15/17 18:08 93 Nasal Cannula 2.00 03/15/17 17:58 98.0 65 12 115/52 (73) 94 Nasal Cannula 2.00 I/O 03/15/17 03/15/17 03/15/17 03/16/17 03/16/17 03/16/17 07:00 15:00 23:00 07:00 15:00 23:00 Intake Total 515 ml 2658 ml 550 ml Output Total 600 ml 650 ml Balance -85 ml 2008 ml 550 ml Intake IV Total 500 ml 832 ml Tube Feeding 167 ml Packed Cells 1000 ml 500 ml FFP 549 ml Blood Product IV Normal Saline Flush 15 ml 110 ml 50 ml Output Urine Total 600 ml 650 ml # Bowel Movements 1 0 Imaging Last Impressions Head CT 03/15/17 1800 Signed Impressions: Service Date/Time: Wednesday, March 15, 2017 18:21 - CONCLUSION: 1. No acute intracranial hemorrhage. 2. 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 3. Bilateral cortical atrophy. Chadd Vásquez MD Chest X-Ray 03/15/17 1800 Signed Impressions: Service Date/Time: Wednesday, March 15, 2017 18:02 - CONCLUSION: No acute disease. Chadd Vásquez MD Laboratory Test 03/15/17 18:10 03/15/17 19:45 03/15/17 20:31 03/15/17 23:00 White Blood Count 15.4 TH/MM3 Red Blood Count 1.77 MIL/MM3 Hemoglobin 5.1 GM/DL Hematocrit 15.3 % Mean Corpuscular Volume 86.4 FL Mean Corpuscular Hemoglobin 28.9 PG Mean Corpuscular Hemoglobin Concent 33.5 % Red Cell Distribution Width 24.1 % Platelet Count 195 TH/MM3 Mean Platelet Volume 8.4 FL Neutrophils (%) (Auto) 85.5 % Lymphocytes (%) (Auto) 8.3 % Monocytes (%) (Auto) 5.2 % Eosinophils (%) (Auto) 0.1 % Basophils (%) (Auto) 0.9 % Neutrophils # (Auto) 13.2 TH/MM3 Lymphocytes # (Auto) 1.3 TH/MM3 Monocytes # (Auto) 0.8 TH/MM3 Eosinophils # (Auto) 0.0 TH/MM3 Basophils # (Auto) 0.1 TH/MM3 CBC Comment DIFF FINAL Differential Comment Prothrombin Time GREATER THAN 180.0 SEC Prothromb Time International Ratio 17.1 RATIO Activated Partial Thromboplast Time 79.1 SEC Blood Urea Nitrogen 105 MG/DL Creatinine 2.90 MG/DL Random Glucose 201 MG/DL Total Protein 5.9 GM/DL Albumin 2.9 GM/DL Calcium Level 7.8 MG/DL Alkaline Phosphatase 68 U/L Aspartate Amino Transf (AST/SGOT) 15 U/L Alanine Aminotransferase (ALT/SGPT) 16 U/L Total Bilirubin 0.3 MG/DL Sodium Level 141 MEQ/L Potassium Level 4.3 MEQ/L Chloride Level 109 MEQ/L Carbon Dioxide Level 20.7 MEQ/L Anion Gap 11 MEQ/L Estimat Glomerular Filtration Rate 21 ML/MIN Total Creatine Kinase 73 U/L Troponin I 1.65 NG/ML Thyroid Stimulating Hormone 3rd Gen 3.480 uIU/ML Urine Collection Type CATH Urine Color YELLOW Urine Turbidity SLIGHT Urine pH 5.0 Urine Specific Coulter 1.012 Urine Protein NEG mg/dL Urine Glucose (UA) NEG mg/dL Urine Ketones NEG mg/dL Urine Occult Blood NEG Urine Nitrite NEG Urine Bilirubin NEG Urine Leukocyte Esterase NEG Urine RBC 0-3 /hpf Urine Squamous Epithelial Cells 0-5 /hpf Urine Amorphous Sediment MOD Urine Hyaline Casts 3-5 /lpf Urine Mucus OCC /lpf Microscopic Urinalysis Comment CULT NOT INDICATED Stool C. difficile Toxin (PCR) NEGATIVE Stl C. difficile Toxin Epiderm 027 PRESUMPTIVE NEGATIVE Nasal Screen MRSA (PCR) MRSA NOT DETECTED Test 03/16/17 00:43 03/16/17 12:00 Prothrombin Time 19.2 SEC Prothromb Time International Ratio 1.7 RATIO Troponin I 1.53 NG/ML White Blood Count 14.8 TH/MM3 Red Blood Count 2.99 MIL/MM3 Hemoglobin 8.8 GM/DL Hematocrit 26.4 % Mean Corpuscular Volume 88.4 FL Mean Corpuscular Hemoglobin 29.3 PG Mean Corpuscular Hemoglobin Concent 33.2 % Red Cell Distribution Width 17.7 % Platelet Count 117 TH/MM3 Mean Platelet Volume 8.4 FL Neutrophils (%) (Auto) 77.8 % Lymphocytes (%) (Auto) 12.4 % Monocytes (%) (Auto) 9.4 % Eosinophils (%) (Auto) 0.1 % Basophils (%) (Auto) 0.3 % Neutrophils # (Auto) 11.5 TH/MM3 Lymphocytes # (Auto) 1.8 TH/MM3 Monocytes # (Auto) 1.4 TH/MM3 Eosinophils # (Auto) 0.0 TH/MM3 Basophils # (Auto) 0.0 TH/MM3 CBC Comment DIFF FINAL Differential Comment Blood Urea Nitrogen 96 MG/DL Creatinine 2.44 MG/DL Random Glucose 141 MG/DL Albumin 3.0 GM/DL Calcium Level 7.5 MG/DL Phosphorus Level 3.9 MG/DL Magnesium Level 2.3 MG/DL Aspartate Amino Transf (AST/SGOT) 22 U/L Alanine Aminotransferase (ALT/SGPT) 17 U/L Sodium Level 146 MEQ/L Potassium Level 3.6 MEQ/L Chloride Level 113 MEQ/L Carbon Dioxide Level 21.8 MEQ/L Anion Gap 11 MEQ/L Estimat Glomerular Filtration Rate 26 ML/MIN Physical Examination HEENT: Normocephalic; atraumatic; no jaundice. CHEST: Resp even/unlabored, diminished CARDIAC: RRR ABDOMEN: Soft, nondistended, nontender; no hepatosplenomegaly; bowel sounds are present in all four quadrants. EXTREMITIES: No clubbing, cyanosis, or edema. SKIN: Generalized pallor VINEGAR MAKER: No focal deficits; lethargic, oriented to self only (ButcherPalak Odonnell LESLEY) Assessment and Plan Plan ASSESSMENT: - GIB, Melena. Pt brought to ER for diarrhea, generalized weakness. Had black tarry stool in ER. On coumadin at home for PE, was found to have severe anemia with HH of 5.1/15.3. S/P 4 units of PRBC and his H/H is now 8.8/26.4. INR of 17.1, s/p 1 unit FFP, Kcentra, and Vitamin K and this is 1.7 now. No further active bleeding. Called POA Nephew Ambrocio Adams at to discuss possible EGD in am- procedure, risks, benefits. There was no answer and therefore I left a message for him to return call to my cell phone. I then called sister Aleena Howard, who states the patient's nephew is the POA and makes all decisions. Will await for nephew to return call. Of note, I did look in our outpatient records, and he has not been seen by our service in the past. Protonix Gtt. Can have clear liquids today, will plan for EGD in am, once I am able to speak to patient's POA (awaiting call back). - Severe anemia, acute blood loss. HH of 5.1/15.3. S/P 4 units of PRBC, rpt H/ H is now 8.8/26.4. - Coagulopathy/Coumadin toxicity. INR of 17.1, s/p 1 unit FFP, Kcentra, and Vitamin K and this is 1.7 now. - Leukocytosis. WBC 14.8. Afebrile. - ELIZABETH, Creat 2.44. Getting IVF. - Elevated troponin with CHF, HTN, CAD, per CCM - Dementia/CVA, COPD, Hypothyroidism, DM per CCM - Hx PE, on coumadin as outpatient. Coumadin on hold for elevated INR/GIB. PLAN: - EGD in am, after discussing with POA- awaiting call back - Obtain consents - Clear liquids - NPO after MN - Cont. Protonix Gtt - Monitor HH - Transfuse as necessary - CBC, BMP, PT/INR in am - Notify GI of active bleeding, or INR > 2.0 in am - Supportive care - Further recommendations to follow based on results of above - Pt seen and examined by Dr. Pandya and myself and this note is written on his behalf (Palak Butcher) Physician Comments Seen and examined, plan as above, coagulopathy corrected, will obtain consent from POA and proceed with EGD in AM. meanwhile continue treatment plan as above. Will follow up with you. (Lisa Pandya MD) Palak Butcher Mar 16, 2017 13:23 Lisa Pandya MD Mar 16, 2017 13:50
[2017-03-16] MEDS ORDERED: PANTOPRAZOLE INJ 80 MG in SODIUM CHLORIDE 0.9% INJ 35 ML IV ONE (14:00)
--- NOTE | 2017-03-16 14:42 | RADRPT ---
EXAM DATE/TIME: 03/16/2017 13:26 [facility] COMPARISON: No previous studies available for comparison. INDICATIONS : Increased Bun and creatinine. MEDICAL HISTORY : Congestive heart failure. Hypertension. Chronic obstructive pulmonary disease. GERD. PE. SURGICAL HISTORY : Unable to obtain. ENCOUNTER: Initial ACUITY: 2 days PAIN SCORE: 1/10 LOCATION: Bilateral flank MEASUREMENTS: RIGHT KIDNEY: 9.6 x 4.1 x 4.3 cm LEFT KIDNEY: 10.0 x 5.0 x 4.2 cm FINDINGS: RIGHT KIDNEY: Renal cortex is normal in thickness and echotexture. No hydronephrosis, stone, or mass. LEFT KIDNEY: Renal cortex is normal in thickness and echotexture. No hydronephrosis, stone, or mass. BLADDER: Decompressed by [place]. CONCLUSION: Negative for stone, mass or obstruction. Nasim Ramsay MD FACR on March 16, 2017 at 14:39 Board Certified Radiologist. This report was verified electronically.
[2017-03-16] MEDS: RESP: ALBUTEROL 2.5 MG/IPRATROPIUM 0.5 MG NEB (SCH) NEB ×2 (16:44→20:12)
--- NOTE | 2017-03-16 17:07 | EKG ---
Date Performed: 03/15/2017 Time Performed: 18:34:04 PTAGE: 76 years EKG: Sinus rhythm POSSIBLE RIGHT VENTRICULAR CONDUCTION DELAY ST DEVIATION AND MODERATE T-WAVE ABNORMALITY, CONSIDER A NTEROLATERAL ISCHEMIA ABNORMAL ECG NO PREVIOUS TRACING DOCTOR: Roselia White Interpretating Date/Time 03/16/2017 17:03:24
--- NOTE | 2017-03-16 17:07 | EKG ---
Date Performed: 03/16/2017 Time Performed: 11:37:57 PTAGE: 76 years EKG: Sinus rhythm WITH OCCASIONAL VENTRICULAR PREMATURE COMPLEXES WITH OCCASIONAL SUPRAVENTRICULAR PREMATURE COMPLEXES MODERATE INTRAVENTRICULAR CONDUCTION DELAY ST DEVIATION AND MODERATE T-WAVE ABNORMALITY, CONSIDER AN TEROLATERAL ISCHEMIA Since previous tracing, no significant change noted ABNORMAL ECG PREVIOUS TRACING : 03/15/2017 18.34 DOCTOR: Roselia White Interpretating Date/Time 03/16/2017 17:03:37
--- NOTE | 2017-03-16 17:46 | ECHRPT ---
Indication: ELEVATED TROPONIN CONCLUSIONS There is diffuse global hypokinesis. The left ventricular systolic function is [id number] reduced with an estimated ejection fra ction in the range of 35-40%. Mild concentric left ventricular hypertrophy. Moderate mitral valve regurgitation. Trace aortic valve regurgitation. There is mild to moderate tricuspid valve regurgitation. Mild pulmonary valve regurgitation. BP: 105 / 75 HR: 87 Rhythm: Atrial fibrillation, PVCs MEASUREMENTS (Male / Female) Normal Values Technical Quality:Technically difficult study 2D ECHO LV Diastolic Diameter PLAX 6.8 cm 4.2 - 5.9 / 3.9 - 5.3 cm LV Systolic Diameter PLAX 5.9 cm IVS Diastolic Thickness 1.0 cm 0.6 - 1.0 / 0.6 - 0.9 cm LVPW Diastolic Thickness 1.0 cm 0.6 - 1.0 / 0.6 - 0.9 cm LV Relative Wall Thickness 0.3 DOPPLER AV Peak Velocity 136.5 cm/s AV Peak Gradient 7.5 mmHg AV Mean Gradient 4.0 mmHg AV Velocity Time Integral 27.0 cm AI Peak Velocity 339.5 cm/s AI Peak Gradient 46.1 mmHg AI Pressure Half Time 459.0 ms LVOT Peak Velocity 107.8 cm/s LVOT Peak Gradient 4.6 mmHg LVOT Velocity Time Integral 19.3 cm Mitral E Point Velocity 110.7 cm/s LV E' Lateral Velocity 9.1 cm/s Mitral E to LV E' Lateral Ratio 12.1 LV E' Septal Velocity 4.0 cm/s Mitral E to LV E' Septal Ratio 27.7 TR Peak Velocity 346.0 cm/s TR Peak Gradient 47.9 mmHg PV Peak Velocity 77.8 cm/s PV Peak Gradient 2.4 mmHg FINDINGS LEFT VENTRICLE There is diffuse global hypokinesis. Moderately dilated left ventricle. Mild concentric left ventricular hypertrophy. The left ventricular systolic function is [id number] reduced with an estimated ejection fra ction in the range of 35-40%. This study was not technically sufficient to allow for evaluation of left ventricular diastolic func tion. RIGHT VENTRICLE Normal right ventricular size and systolic function. LEFT ATRIUM The left atrial size is moderately dilated. RIGHT ATRIUM The right atrial size is [id number] dilated. ATRIAL SEPTUM Normal atrial septal thickness without atrial level shunting by limited color doppler interrogation. AORTA The aortic root and proximal ascending aorta are not well visualized. MITRAL VALVE Mild thickening of the mitral valve leaflets. Moderate mitral valve regurgitation. No mitral valve stenosis. AORTIC VALVE Trileaflet aortic valve. Aortic valve sclerosis is present. Trace aortic valve regurgitation. TRICUSPID VALVE Structurally normal tricuspid valve. There is mild to moderate tricuspid valve regurgitation. There is estimated moderate pulmonary hypertension present (range 50-60 mmHg). PULMONARY VALVE Mild pulmonary valve regurgitation. VESSELS The inferior vena cava was not well visualized. PERICARDIUM No pericardial effusion. Jong Davis DO (Electronically Signed) Final Date:16 March 2017 17:45
[2017-03-16 19:23] LABS: MEAN CELL VOLUME 87.2 FL (80.0-100.0); MEAN CORPUSCULAR HEMOGLOBIN 28.3 PG (27.0-34.0); MEAN CORPUSCULAR HGB CONC 32.5 % (32.0-36.0); PLATELET COUNT 120 TH/MM3 (150-450); RED BLOOD COUNT 2.98 MIL/MM3 (4.50-5.90); RED CELL DISTRIBUTION WIDTH 18.2 % (11.6-17.2); REVIEW FLAG FINAL; WHITE BLOOD COUNT 13.1 TH/MM3 (4.0-11.0)
[2017-03-17] VITALS (15 sets, daily range): BP systolic 109–153; BP diastolic 56–97; PULSE 56–85; RESP 12–19; TEMP 98.8–99.4; O2SAT 82–100
[2017-03-17] MEDS: RESP: ALBUTEROL 2.5 MG/IPRATROPIUM 0.5 MG NEB (SCH) NEB ×4 (03:00→20:27)
[2017-03-17] MEDS: CHLORHEXIDINE GLUCONATE 2 % 1 PACK (2 CLOTHS) TOP SCH (04:00)
[2017-03-17] MEDS: LEVOTHYROXINE SODIUM 25 MCG TAB PO SCH (05:27)
[2017-03-17] MEDS: INSULIN NovoLIN REGULAR SUPPLEMENTAL SCALE SQ SCH ×4 (06:27→21:00)
--- NOTE | 2017-03-17 08:04 | MB ---
cc: JONG ANDRE DO DATE OF CONSULTATION 03/16/2017 REASON FOR CONSULTATION Elevated troponin HISTORY OF PRESENT ILLNESS Riya Nichols is a pleasant 76-year-old male who presented to [facility] on March 15, 2017 due to diarrhea and generalized weakness. The patient does have some underlying dementia and was able to give some history, but along with this, most of the history is taken from the chart. He states that he has been having diarrhea. Overall, he has been generally weak over the past few days. He denies any nausea or vomiting. He denies any chest pain or shortness of breath. Upon arrival in the emergency room, he was found to have a hemoglobin of 5 and an INR greater than 17. In the emergency room, he received FFP, Kcentra and 4 units of packed red blood cells. Per the documentation, he was noticed to have tarry black stools in the emergency room. In seeing him, he is currently hemodynamically stable without chest pain or shortness of breath. During his workup, he was found to have elevated troponins and I was consulted for such. PAST MEDICAL HISTORY 1. Anemia 2. Depression 3. Congestive heart failure 4. COPD 5. Gastroesophageal reflux disease 6. Hypertension 7. History of pulmonary embolism currently on Coumadin. 8. Thyroid disease PAST SURGICAL HISTORY The patient is unable to give much information and states that he does not believe that he has had coronary artery bypass grafting, although on chest x-ray he has sternal wires and markers can be seen most likely from his bypass. Unable to obtain other surgical history. ALLERGIES NO KNOWN DRUG ALLERGIES. MEDICATIONS 1. DuoNeb every 12 hours 2. Albuterol every 4 hours as needed for shortness of breath. 3. Iron 325 mg daily 4. Coumadin 6 mg daily 5. Coreg 3.125 mg b.i.d. 6. Lisinopril 2.5 mg daily 7. Mirtazapine 15 mg every night 8. Sertraline 75 mg daily 9. Hydroxyzine 25 mg every 6 hours as needed for anxiety 10. Potassium 20 mEq daily 11. Lasix 40 mg daily 12. Loperamide 2 mg as needed for diarrhea 13. Ranitidine 150 mg daily 14. Sucralfate 1 gram b.i.d. 15. Synthroid 50 mcg daily FAMILY HISTORY Unable to obtain. SOCIAL HISTORY The patient denies tobacco, alcohol or drug abuse. REVIEW OF SYSTEMS 14-systems were reviewed including osteopathic pertinent positives and negatives as above, otherwise negative. PHYSICAL EXAMINATION VITAL SIGNS: Temperature 97.1, heart rate 67, blood pressure 127/97, respirations 19, pulse ox 94% on two liters. In general, the patient appears well in no acute distress, alert but confused. Extraocular muscles intact. Mucous membranes moist. NECK: Supple. No JVD at 45 degrees. No carotid bruits heard bilaterally. Carotid upstroke is brisk in nature. HEART: Regular rate and rhythm. Positive first and second heart sounds with no murmurs, gallops or rubs. LUNGS: Clear to auscultation bilaterally. No wheezes, rales or rhonchi. ABDOMEN: Soft, nontender and nondistended. No organomegaly noted. EXTREMITIES: Show no clubbing, cyanosis or edema. Femoral and distal pulses intact bilaterally. NEUROLOGIC: No focal deficits. SKIN: Warm, dry and intact. OSTEOPATHIC: Mild kyphoscoliosis, no lordosis or paraspinal tender points. LABORATORY FINDINGS Hemoglobin 5.1 increasing to 8.8 after 4 units packed red blood cells, platelets 117, INR 17.1 decreasing to 1.7, potassium 3.6, BUN 96, creatinine 2.44, troponin 1.65 increasing to 2.28. Electrocardiogram (March 16, 2017 @ 1137) sinus rhythm at 71 beats per minute, mild ST-T wave changes anterolaterally possibly due to ischemia. IMPRESSIONS 1. Probable upper GI bleed with dark tarry stools. 2. Extensive anemia with a hemoglobin of 5.1 secondary to GI bleed. 3. Supratherapeutic INR previously on Coumadin. 4. Elevated troponin most likely type two in nature due to extensive anemia. 5. History of congestive heart failure, unknown if systolic versus diastolic at this time. 6. He has a history of COPD. 7. Acute kidney injury possibly superimposed on chronic kidney disease. RECOMMENDATIONS 1. Mr. Nichols presented with a GI bleed and will be worked up by GI for possible EGD in the morning. 2. He may proceed with this as an elevated risk as we are unable to decrease his risk at this time with revascularization. 3. Overall I believe that his troponin elevation is most likely due to his extensive anemia. He denies chest pain or shortness of breath. 4. We will continue medical management of his NSTEMI. 5. He is not an anticoagulation candidate due to his current GI bleeds. 6. We will check a 2-D echo to look at his overall left ventricular function, cardiac structure and possible valvopathies. 7. Further recommendations will be made based on the hospital course. Thank you for allowing me to see Quilting Machine Operator Simone. If there are any questions, please do not hesitate to call. Jong Andre DO VGP/DJL /10:15 PM /7:43 AM
[2017-03-17] MEDS: SODIUM CHLORIDE 0.9% FLUSH 10 ML FLUSH SCH ×2 (08:28→21:00)
--- NOTE | 2017-03-17 08:34 | HHI.CCPN ---
Subjective Remarks/Hospital Course 76-year-old male who is [facility] in from [facility] due to diarrhea and generalized weakness. Patient does have some underlying dementia, but is able to say that he is just feeling overall weak. He has been having some diarrhea. Denies any pain at this time. He says he does not know if he has been taking any antibiotics. He denies any abdominal pain. He has not had any nausea or vomiting. Patient denies melanotic or bloody stool however in the emergency department he was noticed to have a tarry black stool. His hemoglobin was found to be 5 and his INR more than 17. He has received FFP's, Kcentra and was started on blood transfusions. 03/16: Status post 3 PRBCs, 1 FFP. A.m. laboratories pending. Still appears pale. Hemodynamically stable. Subjective 03/17: AM laboratories pending. Remains hemodynamically stable. More awake and alert today. No bowel movement overnight. Objective Vital Signs Date Time Temp Pulse Resp B/P (MAP) Pulse Ox O2 Delivery O2 Flow Rate FiO2 03/17/17 06:00 57 03/17/17 04:00 98.8 15 137/97 (110) 99 03/16/17 20:12 Nasal Cannula 2.00 Intake and Output 03/17/17 03/17/17 03/18/17 08:00 16:00 00:00 Intake Total 2531 ml Output Total 1100 ml Balance 1431 ml Result Diagram: 03/16/17 1845 03/16/17 1200 Imaging Last Impressions Renal Ultrasound 03/16/17 0000 Signed Impressions: Service Date/Time: Thursday, March 16, 2017 13:26 - CONCLUSION: Negative for stone, mass or obstruction. Nasim Ramsay MD FACR Head CT 03/15/17 1800 Signed Impressions: Service Date/Time: Wednesday, March 15, 2017 18:21 - CONCLUSION: 1. No acute intracranial hemorrhage. 2. 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 3. Bilateral cortical atrophy. Chadd Vásquez MD Chest X-Ray 03/15/17 1800 Signed Impressions: Service Date/Time: Wednesday, March 15, 2017 18:02 - CONCLUSION: No acute disease. Chadd Vásquez MD Objective Remarks GENERAL: 68-year-old male, currently resting in bed in no acute distress SKIN: Pale and dry. No rash. Well-perfused. HEAD: Normocephalic. EYES: No scleral icterus. No injection or drainage. NECK: Supple, trachea midline. No JVD or lymphadenopathy. CARDIOVASCULAR: IRR. S1, S2. No S4. Without murmurs, gallops, or rubs. RESPIRATORY: Breath sounds equal bilaterally. No accessory muscle use. GASTROINTESTINAL: Abdomen soft, slightly tender to palpation epigastric region. hypoactive bowel sounds MUSCULOSKELETAL: 1+ peripheral edema BACK: Nontender without obvious deformity. NEURO EXAM: Cranial nerves II-12 by mouth grossly intact. Slightly weak on the right upper and lower extremity. Normal sensation. A/P Assessment and Plan Neuro/Psych: Dementia disorder NOS Left basal ganglia CVA Depression NOS Holding mirtazapine 15 mg at night. Holding sertraline 75 mg by mouth daily Holding hydroxyazine 25 mg as needed CV: Chronic systolic heart failure ejection fraction 35% Hypertension History of CABG Elevated troponin currently 4.1 likely type II non-STEMI secondary to demand ischemia Atrial fibrillation? Likely demand ischemia from low blood volume. Echocardiogram 03/16 revealed EF 35-40%. Moderate MR/TR. Trace AR. Mild ME. Cardiology consultation appreciated. No acute interventions at this time. Currently normal saline at 100 cc an hour while nothing by mouth. Holding furosemide 40 mg daily and potassium chloride 20 mEq daily Holding carvedilol 3.125 mg by mouth twice daily in light of GI bleed. Holding lisinopril 2.5 mill grams daily light of GI bleed/acute kidney injury. EKG ordered. Appears regular on telemetry. Resp: History COPD Nasal cannula to maintain saturations greater than equal to 92% Incentive spirometry while awake On albuterol/ipratropium aerosols every 12 hours and nursing along with albuterol inhaler when necessary GI: Gastroesophageal reflux disease Previously on ranitidine 150 mg by mouth twice a day and sucralfate 1 g twice a day Currently on pantoprazole drip at 8 mg an hour. EGD planned for today. : Condom catheter adequate at present. Endo: Hypothyroidism Diabetes mellitus Continue levothyroxine 50 mcg by mouth daily. Follow up on TSH Sliding-scale insulin to maintain euglycemia/low regimen of Novulin R with Accu- Cheks every 6 hours Renal: Acute kidney injury Unknown baseline creatinine. Avoid nephrotoxic drugs. Renal ultrasound revealed no hydronephrosis. Urine electrolytes/eosinophils negative Monitor urine output Accurate I's and O's Heme: Acute blood loss anemia Leukocytosis Supratherapeutic INR secondary to warfarin History of pulmonary embolism Received K Centra 3702 milligrams in ED 1. 10 mg of vitamin K. 1 FFP. Last INR 1.7. Transfused 3 units PRBCs. Repeat hemoglobin pending. Serial hemoglobins GI consultation Holding warfarin 6 mill grams by mouth daily. Previously on iron sulfate 325 mg by mouth daily. ID: Monitor for infection FEN: Replacing electrolytes as clinically indicated MSK: Physical therapy evaluate and treat Access - Utilize peripheral IV. Central line if indicated Prophylaxis - GI - pantoprazole drip - DVT - SCD/pharmacological prophylaxis contraindicated with active bleeding Level II follow-up Hussein Hart MD Mar 17, 2017 08:34
[2017-03-17 09:24] LABS: AUTOMATED NEUTROPHIL # 7.7 TH/MM3 (1.8-7.7); BASOPHIL % 0.3 % (0.0-2.0); EOSINOPHIL # 0.1 TH/MM3 (0-0.4); EOSINOPHIL % 0.8 % (0.0-4.0); HEMATOCRIT 23.4 % (39.0-51.0); HEMO FLAGS DIFF FINAL; LYMPH % 11.2 % (9.0-44.0); LYMPHOCYTE # 1.1 TH/MM3 (1.0-4.8); MEAN CELL VOLUME 88.6 FL (80.0-100.0); MEAN CORPUSCULAR HEMOGLOBIN 29.3 PG (27.0-34.0); MONO % 7.1 % (0.0-8.0); NEUT % 80.6 % (16.0-70.0); PLATELET COUNT 118 TH/MM3 (150-450); RED BLOOD COUNT 2.65 MIL/MM3 (4.50-5.90); RED CELL DISTRIBUTION WIDTH 19.1 % (11.6-17.2); WHITE BLOOD COUNT 9.5 TH/MM3 (4.0-11.0)
[2017-03-17 09:35] LABS: APTT (PATIENT) 34.7 SEC (24.3-30.1); INTERNATIONAL NORMALIZED RATIO 1.4 RATIO; PROTHROMBIN TIME - PATIENT 15.3 SEC (9.8-11.6)
[2017-03-17 09:52] LABS: ANION GAP 10 MEQ/L (5-15); AST (GOT) 29 U/L (15-37); BICARBONATE 21.3 MEQ/L (21.0-32.0); BLOOD UREA NITROGEN 64 MG/DL (7-18); CHLORIDE 116 MEQ/L (98-107); GLOMERULAR FILTRATION RATE 31 ML/MIN (>89); MAGNESIUM 2.2 MG/DL (1.5-2.5); POTASSIUM 3.4 MEQ/L (3.5-5.1); SODIUM (NA) 147 MEQ/L (136-145)
[2017-03-17 10:04] LABS: ALKALINE PHOSPHATASE 55 U/L (45-117); ALT (GPT) 16 U/L (12-78); TOTAL BILIRUBIN ADULT 0.5 MG/DL (0.2-1.0)
[2017-03-17] MEDS: PANTOPRAZOLE INJ 80 MG in SODIUM CHLORIDE 0.9% INJ 100 ML IV SCH ×2 (10:29→17:39)
[2017-03-17] MEDS: DOCUSATE SODIUM 50 MG/SENNA 8.6 MG TAB PO SCH ×2 (10:29→21:16)
[2017-03-17] MEDS: SODIUM CHLOR 0.9% 1000 ML INJ 1,000 ML IV SCH ×2 (11:09→17:40)
[2017-03-17] MEDS ORDERED: KETAMINE HCL 500 MG/5 ML VIAL IV ONE (12:00)
--- NOTE | 2017-03-17 12:29 | GIPROC ---
[facility] [address] [facility]. [facility], [address] EGD PROCEDURE REPORT EXAM DATE: 03/17/2017 PATIENT NAME: Riya Nichols MR #: [id number] BIRTHDATE: 1940 ATTENDING: Lisa Pandya MD ORDER #: [id number] MANAGER TECHNICAL TRAINING: Wale Christiansen and Sharona Chatman STATUS: inpatient INDICATIONS: The patient is a 76 yr old male here for an EGD due to anemia, hematemesis, and melena PROCEDURE PERFORMED: EGD w/ biopsy MEDICATIONS: None and Per Anesthesia. TOPICAL ANESTHETIC: none CONSENT: The patient understands the risks and benefits of the procedure and understands that these risks include, but are not limited to: sedation, allergic reaction, infection, perforation and/or bleeding. Alternative means of evaluation and treatment include, among others: physical exam, x-rays, and/or surgical intervention. The patient elects to proceed with this endoscopic procedure. medical equipment was checked for proper function. Hand hygiene and appropriate measures for infection prevention was taken. After the risks, benefits and alternatives of the procedure were thoroughly explained, Informed consent was verified, confirmed and timeout was successfully executed by the treatment team. The patient was anesthetized with topical anesthesia and the Pentax [id number] endoscope was introduced through the mouth and advanced to the second portion of the duodenum. Retroflexed views revealed an ulcer The gastroscope was then slowly withdrawn and removed. ESOPHAGUS: A large non-bleeding, irregular shaped, deep and clean-based ulcer with surrounding edema was found at the esopho-gastric anastamosis. Biopsies were taken around the ulcer. STOMACH: The mucosa of the stomach appeared normal. DUODENUM: The duodenal mucosa appeared normal in the bulb and second portion of the duodenum. ADVERSE EVENTS: There were no complications. IMPRESSIONS: 1. Large ulcer was found at the esopho-gastric anastamosis; biopsies were taken 2. The mucosa of the stomach appeared normal 3. Normal duodenal mucosa in the bulb and second portion of the duodenum 4. Retroflexed views revealed an ulcer RECOMMENDATIONS: 1. Await biopsy results. Biopsy results will not be ready for 7-10 days. If you don't hear from us in two weeks, call our office for biopsy results. 2. Continue PPI PATIENT CONDITION: stable DISPOSITION: Observation REPEAT EXAM: NONE Lisa Pandya MD eSigned: Lisa Pandya MD 03/17/2017 12:28 PM cc: PATIENT NAME: Riya Nichols MR#: [id number]
[2017-03-17] MEDS ORDERED: DO NOT ADM ANY ANTICOAGULANT DRUGS PRN (12:36)
--- NOTE | 2017-03-17 12:41 | PD.CARD.PN ---
Subjective Subjective Remarks No events overnight No chest pain/SOB Objective Medications Current Medications Medications (Trade) Dose Ordered Sig/Teodoro Route Start Time Stop Time Status Last Admin Sodium Chloride 1,000 ml @ 84 mls/hr [id number] IV 03/15/17 23:24 03/16/17 15:43 (NS Flush) 2 ml UNSCH PRN .XX 03/15/17 23:30 (NS Flush) 2 ml BID .XX 03/16/17 09:00 03/16/17 20:05 (Tylenol) 650 mg Q6H PRN PO 03/15/17 23:30 (Morphine Inj) 2 mg Q2H PRN IV 03/15/17 23:30 (Zofran Inj) 4 mg Q6H PRN IV 03/15/17 23:30 (Ambien) 5 mg HS PRN PO 03/15/17 23:30 Miscellaneous Information 1 Q361D XX 03/15/17 23:30 (Chlorhexidine 2% Cloth) 3 pack Taper DAILY@04 TOP 03/16/17 04:00 03/12/18 03:59 03/17/17 04:00 (Chlorhexidine 2% Cloth) 3 pack UNSCH PRN TOP 03/15/17 23:30 (Andria-Colace) 1 tab BID PO 03/16/17 09:00 03/17/17 10:29 (Milk Of Magnesia Liq) 30 ml Q12H PRN PO 03/15/17 23:30 (Senokot) 17.2 mg Q12H PRN PO 03/15/17 23:30 (Dulcolax Supp) 10 mg DAILY PRN RECTAL 03/15/17 23:30 (Lactulose Liq) 30 ml DAILY PRN PO 03/15/17 23:30 (Synthroid) 25 mcg DAILY@0600 PO 03/16/17 06:00 03/17/17 05:27 Pantoprazole Sodium 80 mg/ Sodium Chloride 100 ml @ 10 mls/hr Q10H IV 03/16/17 13:00 03/17/17 10:29 (Duoneb Neb) 1 ampule Q6HR NEB NEB 03/16/17 16:00 03/17/17 08:51 (Albuterol Neb) 2.5 mg Q2HR NEB PRN NEB 03/16/17 11:00 (D50w (Vial) Inj) 50 ml UNSCH PRN IV 03/16/17 11:00 (Glucagon Inj) 1 mg UNSCH PRN OTHER 03/16/17 11:00 (NovoLIN R SUPPLEMENTAL SCALE) 1 ACHS SLIDING SCALE SQ 03/16/17 11:00 03/16/17 20:03 Vital Signs / I&O Vital Signs Date Time Temp Pulse Resp B/P (MAP) Pulse Ox O2 Delivery O2 Flow Rate FiO2 03/17/17 10:00 75 03/17/17 10:00 75 18 109/73 (85) 100 03/17/17 09:00 61 19 127/60 (82) 100 03/17/17 09:00 61 03/17/17 08:53 100 Nasal Cannula 3.00 03/17/17 08:00 59 13 117/68 (84) 100 03/17/17 08:00 59 03/17/17 06:00 57 03/17/17 04:00 98.8 66 15 137/97 (110) 99 03/17/17 04:00 66 03/17/17 02:00 62 03/17/17 00:00 56 03/17/17 00:00 99.0 56 12 116/56 (76) 100 03/16/17 22:00 60 03/16/17 20:12 99 Nasal Cannula 2.00 03/16/17 20:00 62 03/16/17 20:00 99.1 62 15 175/104 (127) 100 03/16/17 18:00 54 03/16/17 16:00 67 03/16/17 16:00 97.1 67 19 127/97 (107) 94 03/16/17 14:00 68 I/O 03/16/17 03/16/17 03/16/17 03/17/17 03/17/17 03/17/17 07:00 15:00 23:00 07:00 15:00 23:00 Intake Total 2658 ml 1585 ml 1600 ml 2531 ml 100 ml Output Total 650 ml 1200 ml 1100 ml Balance 2008 ml 1585 ml 400 ml 1431 ml 100 ml Intake Oral 400 ml 400 ml IV Total 832 ml 1035 ml 100 ml 2131 ml 100 ml Tube Feeding 167 ml Packed Cells 1000 ml 500 ml 1100 ml FFP 549 ml Blood Product IV Normal Saline Flush 110 ml 50 ml Output Urine Total 650 ml 1200 ml 1100 ml # Bowel Movements 0 0 0 Physical Exam GENERAL: NAD, more alert SKIN: Warm and dry. HEAD: Atraumatic. Normocephalic. EYES: Pupils equal and round. No scleral icterus. No injection or drainage. ENT: No nasal bleeding or discharge. Mucous membranes pink and moist. NECK: Trachea midline. No JVD. CARDIOVASCULAR: Regular rate and rhythm. RESPIRATORY: No accessory muscle use. Clear to auscultation. Breath sounds equal bilaterally. GASTROINTESTINAL: Abdomen soft, non-tender, nondistended. Hepatic and splenic margins not palpable. MUSCULOSKELETAL: Extremities without clubbing, cyanosis, or edema. No obvious deformities. NEUROLOGICAL: Awake and alert. No obvious cranial nerve deficits. Motor grossly within normal limits. Five out of 5 muscle strength in the arms and legs. Normal speech. PSYCHIATRIC: Appropriate mood and affect; insight and judgment normal. Laboratory Laboratory Tests Test 03/16/17 18:45 03/17/17 09:12 White Blood Count 13.1 TH/MM3 9.5 TH/MM3 Red Blood Count 2.98 MIL/MM3 2.65 MIL/MM3 Hemoglobin 8.4 GM/DL 7.7 GM/DL Hematocrit 26.0 % 23.4 % Mean Corpuscular Volume 87.2 FL 88.6 FL Mean Corpuscular Hemoglobin 28.3 PG 29.3 PG Mean Corpuscular Hemoglobin Concent 32.5 % 33.0 % Red Cell Distribution Width 18.2 % 19.1 % Platelet Count 120 TH/MM3 118 TH/MM3 Mean Platelet Volume 8.5 FL 7.2 FL Troponin I 4.01 NG/ML Neutrophils (%) (Auto) 80.6 % Lymphocytes (%) (Auto) 11.2 % Monocytes (%) (Auto) 7.1 % Eosinophils (%) (Auto) 0.8 % Basophils (%) (Auto) 0.3 % Neutrophils # (Auto) 7.7 TH/MM3 Lymphocytes # (Auto) 1.1 TH/MM3 Monocytes # (Auto) 0.7 TH/MM3 Eosinophils # (Auto) 0.1 TH/MM3 Basophils # (Auto) 0.0 TH/MM3 CBC Comment DIFF FINAL Differential Comment Prothrombin Time 15.3 SEC Prothromb Time International Ratio 1.4 RATIO Activated Partial Thromboplast Time 34.7 SEC Fibrinogen 335 mg/dL Blood Urea Nitrogen 64 MG/DL Creatinine 2.08 MG/DL Random Glucose 128 MG/DL Total Protein 5.3 GM/DL Albumin 2.6 GM/DL Calcium Level 7.5 MG/DL Phosphorus Level 3.3 MG/DL Magnesium Level 2.2 MG/DL Alkaline Phosphatase 55 U/L Aspartate Amino Transf (AST/SGOT) 29 U/L Alanine Aminotransferase (ALT/SGPT) 16 U/L Total Bilirubin 0.5 MG/DL Sodium Level 147 MEQ/L Potassium Level 3.4 MEQ/L Chloride Level 116 MEQ/L Carbon Dioxide Level 21.3 MEQ/L Anion Gap 10 MEQ/L Estimat Glomerular Filtration Rate 31 ML/MIN Lactic Acid Level 1.5 mmol/L Thyroid Stimulating Hormone 3rd Gen 3.420 uIU/ML Assessment and Plan Problem List: (1) GI bleed ICD Codes: K92.2 - Gastrointestinal hemorrhage, unspecified Status: Acute (2) Anemia ICD Codes: D64.9 - Anemia, unspecified Status: Acute (3) Coagulopathy ICD Codes: D68.9 - Coagulation defect, unspecified Status: Acute (4) NSTEMI (non-ST elevated myocardial infarction) ICD Codes: I21.4 - Non-ST elevation (NSTEMI) myocardial infarction Status: Acute (5) CAD (coronary artery disease) ICD Codes: I25.10 - Atherosclerotic heart disease of [place] coronary artery without angina pectoris (6) Hx of CABG ICD Codes: Z95.1 - Presence of aortocoronary bypass graft Assessment and Plan 1) Elevated troponin, most likely Type 2 due to Hbg being in the 5s 2) No further workup for NSTEMI due to GI Bleed 3) EGD per GI team 4) Eventual ASA if possible, will wait for GI clearance Problem Qualifiers (1) GI bleed: Qualified Codes: K92.2 - Gastrointestinal hemorrhage, unspecified (2) Anemia: Qualified Codes: D62 - Acute posthemorrhagic anemia Jong Davis DO Mar 17, 2017 12:41
[2017-03-17] MEDS ORDERED: PROPOFOL 200 MG/20 ML AMP IV ONE (14:10)
[2017-03-18] VITALS (10 sets, daily range): BP systolic 116–139; BP diastolic 64–78; PULSE 77–93; RESP 17–20; TEMP 97–99.2; O2SAT 90–98
[2017-03-18] MEDS: RESP: ALBUTEROL 2.5 MG/IPRATROPIUM 0.5 MG NEB (SCH) NEB ×4 (02:26→22:26)
[2017-03-18] MEDS: PANTOPRAZOLE INJ 80 MG in SODIUM CHLORIDE 0.9% INJ 100 ML IV SCH ×3 (03:16→23:57)
[2017-03-18] MEDS: CHLORHEXIDINE GLUCONATE 2 % 1 PACK (2 CLOTHS) TOP SCH (03:20)
[2017-03-18] MEDS: LEVOTHYROXINE SODIUM 25 MCG TAB PO SCH (03:25)
[2017-03-18] MEDS: SODIUM CHLOR 0.9% 1000 ML INJ 1,000 ML IV SCH (06:35)
[2017-03-18] MEDS: INSULIN NovoLIN REGULAR SUPPLEMENTAL SCALE SQ SCH ×4 (06:44→21:00)
[2017-03-18 07:46] LABS: HEMATOCRIT 23.6 % (39.0-51.0); MEAN CELL VOLUME 89.2 FL (80.0-100.0); MEAN CORPUSCULAR HGB CONC 33.6 % (32.0-36.0); PLATELET COUNT 133 TH/MM3 (150-450); RED BLOOD COUNT 2.65 MIL/MM3 (4.50-5.90); RED CELL DISTRIBUTION WIDTH 19.8 % (11.6-17.2); REVIEW FLAG FINAL; WHITE BLOOD COUNT 9.2 TH/MM3 (4.0-11.0)
[2017-03-18 07:48] LABS: INTERNATIONAL NORMALIZED RATIO 1.2 RATIO; PROTHROMBIN TIME - PATIENT 13.2 SEC (9.8-11.6)
[2017-03-18] MEDS: DOCUSATE SODIUM 50 MG/SENNA 8.6 MG TAB PO SCH ×2 (08:13→21:23)
[2017-03-18 08:19] LABS: BICARBONATE 20.9 MEQ/L (21.0-32.0); MAGNESIUM 2.3 MG/DL (1.5-2.5)
[2017-03-18] MEDS: SODIUM CHLORIDE 0.9% FLUSH 10 ML FLUSH SCH ×2 (08:20→21:00)
[2017-03-18 08:58] LABS: POTASSIUM 3.3 MEQ/L (3.5-5.1)
--- NOTE | 2017-03-18 10:26 | HHI.PR ---
Subjective Remarks Follow up diarrhea and generalized weakness. Patient seen and examined today, lying in bed comfortably. Alert and oriented x 2. Denies any new acute complaints overnight. Denies any recent fever, chills, cough, shortness of breath, ab pain, n/v or dysuria. Denies any further diarrhea. Objective Vitals Vital Signs Date Time Temp Pulse Resp B/P (MAP) Pulse Ox O2 Delivery O2 Flow Rate FiO2 03/18/17 09:33 93 Nasal Cannula 2.00 03/18/17 08:00 97.6 82 20 116/65 (82) 95 03/18/17 04:00 77 03/18/17 04:00 97.9 93 18 118/78 (91) 91 03/18/17 03:05 81 03/18/17 00:00 78 03/18/17 00:00 99.2 78 19 139/74 (95) 93 03/17/17 20:27 95 Nasal Cannula 2.00 03/17/17 20:00 99.4 85 18 153/72 (99) 88 03/17/17 20:00 85 03/17/17 16:15 80 16 139/71 (93) 03/17/17 16:00 77 16 03/17/17 16:00 77 03/17/17 14:04 78 03/17/17 14:00 73 03/17/17 13:19 79 03/17/17 13:19 79 13 128/70 (89) 82 03/17/17 13:00 98.0 76 16 120/68 (85) 96 Nasal Cannula 2 03/17/17 12:45 78 16 123/65 (84) 95 Nasal Cannula 2 03/17/17 12:30 98.1 82 19 121/58 (79) 100 Nasal Cannula 3 I/O 03/17/17 03/17/17 03/17/17 03/18/17 03/18/17 03/18/17 06:59 14:59 22:59 06:59 14:59 22:59 Intake Total 2531 ml 300 ml 1821 ml Output Total 1100 ml 150 ml 300 ml Balance 1431 ml 150 ml 1521 ml Intake Oral 400 ml 780 ml IV Total 2131 ml 100 ml 1041 ml Other 200 ml Output Urine Total 1100 ml 150 ml 300 ml # Voids 2 # Bowel Movements 0 Result Diagram: 03/18/17 0700 03/18/17 0700 Imaging Last Impressions Renal Ultrasound 03/16/17 0000 Signed Impressions: Service Date/Time: Thursday, March 16, 2017 13:26 - CONCLUSION: Negative for stone, mass or obstruction. Nasim Ramsay MD FACR Head CT 03/15/17 1800 Signed Impressions: Service Date/Time: Wednesday, March 15, 2017 18:21 - CONCLUSION: 1. No acute intracranial hemorrhage. 2. 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 3. Bilateral cortical atrophy. Chadd Vásquez MD Chest X-Ray 03/15/17 1800 Signed Impressions: Service Date/Time: Wednesday, March 15, 2017 18:02 - CONCLUSION: No acute disease. Chadd Vásquez MD Objective Remarks GENERAL: Well-nourished well-developed, male patient. Lying in bed in no acute distress. SKIN: Warm and dry. No rash. HEENT: Normocephalic. Pupils equal and round and reactive to light. EOMs intact. Mucous membranes pink and moist. CARDIOVASCULAR: Regular rate and rhythm. No murmur appreciated. RESPIRATORY: No accessory muscle use. Clear to auscultation. Breath sounds equal bilaterally. GASTROINTESTINAL: Abdomen soft, non-tender, nondistended. Bowel sounds x4. MUSCULOSKELETAL: No obvious deformities. No clubbing or cyanosis. No edema. NEUROLOGICAL: Awake and alert. No focal neurological deficits. Moves upper and lower extremities spontaneously. Normal speech. Strength 5/5. PSYCHIATRIC: Alert, answers questions, appears drowsy. A/P Assessment and Plan Dementia disorder NOS Left basal ganglia CVA Depression NOS - Holding mirtazapine 15 mg at night. - Holding sertraline 75 mg by mouth daily - Holding hydroxyazine 25 mg as needed Chronic systolic heart failure ejection fraction 35% Hypertension History of CABG Elevated troponin currently 4.1 likely type II non-STEMI secondary to demand ischemia Atrial fibrillation? - Likely demand ischemia from low blood volume. - Echocardiogram 03/16 revealed EF 35-40%. Moderate MR/TR. Trace AR. Mild GA. - Cardiology following patient. No acute interventions at this time. - Holding furosemide 40 mg daily and potassium chloride 20 mEq daily - Restart carvedilol 3.125 mg PO daily by cardiology. - Holding lisinopril 2.5 mill grams daily light of GI bleed/acute kidney injury. - EKG ordered. Appears regular on telemetry. Hypothyroidism Diabetes mellitus - Continue levothyroxine 50 mcg by mouth daily. Follow up on TSH - Sliding-scale insulin to maintain euglycemia/low regimen of Novolin R with Accu-Cheks every 6 hours Acute kidney injury suspect secondary to ATN due to severe anemia - Unknown baseline creatinine. - Avoid nephrotoxic drugs. - Renal ultrasound revealed no hydronephrosis. - Urine electrolytes/eosinophils negative - Monitor urine output - Accurate I's and O's - Consult nephrology, appreciate recommendations. Acute blood loss anemia Leukocytosis Supratherapeutic INR secondary to warfarin History of pulmonary embolism - Received K Centra 3702 milligrams in ED 1. 10 mg of vitamin K. 1 FFP. Last INR 1.2. - Status post 3 units PRBCs. Repeat hemoglobin 7.9. - Serial hemoglobins - Holding warfarin - Previously on iron sulfate 325 mg by mouth daily. History COPD - Nasal cannula to maintain saturations greater than equal to 92% - Incentive spirometry while awake - On albuterol/ipratropium aerosols every 12 hours and nursing along with albuterol inhaler when necessary Gastroesophageal reflux disease - Currently on pantoprazole drip at 8 mg an hour. - EGD done 03/17 showing large ulcer at the Esopho-gastric anastomosis. Biopsy pending. Hypokalemia: K 3.3 Replaced. Will redraw in am. GI prophylaxis: Pantoprazole drip DVT prophylaxis: SCD/pharmacological prophylaxis contraindicated with active bleeding Attending Statement The exam, history, and the medical decision-making described in the above note were completed with the assistance of the mid-level provider. I reviewed and agree with the findings presented. I attest that I had a [id number] encounter with the patient on the same day, and personally performed and documented my assessment and findings in the medical record. seen and examined on same day with the PLAN CHECKER no acute issues demented , denied c/o continue current care , follow with GI , renal may need rehab at [facility] Mar 18, 2017 10:26 Yohannes Serra MD Mar 19, 2017 13:19
[2017-03-18] MEDS ORDERED: POTASSIUM CHLORIDE 25 MEQ EFFERVESCENT TAB PO ONE (10:45)
--- NOTE | 2017-03-18 11:42 | EKG ---
Date Performed: 03/17/2017 Time Performed: 10:16:18 PTAGE: 76 years EKG: The underlying rhythm is probably atrial fibrillation with controlled ventricular rate. The re is significant baseline artifact making this substandard for interpretation. Intraventricular cond uction delay with secondary ST-T wave changes No obvious change compared to the prior tracing. ABNORM AL ECG PREVIOUS TRACING : 03/16/2017 11.37 DOCTOR: Jaime Cardoza Interpretating Date/Time 03/18/2017 11:41:56
--- NOTE | 2017-03-18 12:28 | PD.CARD.PN ---
Subjective Subjective Remarks No events overnight No chest pain/SOB No bowel movements per the patient Objective Medications Current Medications Medications (Trade) Dose Ordered Sig/Teodoro Route Start Time Stop Time Status Last Admin Sodium Chloride 1,000 ml @ 84 mls/hr [id number] IV 03/15/17 23:24 03/18/17 06:35 (NS Flush) 2 ml UNSCH PRN .XX 03/15/17 23:30 (NS Flush) 2 ml BID .XX 03/16/17 09:00 03/18/17 08:20 (Tylenol) 650 mg Q6H PRN PO 03/15/17 23:30 (Morphine Inj) 2 mg Q2H PRN IV 03/15/17 23:30 (Zofran Inj) 4 mg Q6H PRN IV 03/15/17 23:30 03/17/17 21:16 (Ambien) 5 mg HS PRN PO 03/15/17 23:30 Miscellaneous Information 1 Q361D XX 03/15/17 23:30 (Chlorhexidine 2% Cloth) 3 pack Taper DAILY@04 TOP 03/16/17 04:00 03/12/18 03:59 03/18/17 03:20 (Chlorhexidine 2% Cloth) 3 pack UNSCH PRN TOP 03/15/17 23:30 (Andria-Colace) 1 tab BID PO 03/16/17 09:00 03/18/17 08:13 (Milk Of Magnesia Liq) 30 ml Q12H PRN PO 03/15/17 23:30 (Senokot) 17.2 mg Q12H PRN PO 03/15/17 23:30 (Dulcolax Supp) 10 mg DAILY PRN RECTAL 03/15/17 23:30 (Lactulose Liq) 30 ml DAILY PRN PO 03/15/17 23:30 (Synthroid) 25 mcg DAILY@0600 PO 03/16/17 06:00 03/18/17 03:25 Pantoprazole Sodium 80 mg/ Sodium Chloride 100 ml @ 10 mls/hr Q10H IV 03/16/17 13:00 03/18/17 03:16 (Duoneb Neb) 1 ampule Q6HR NEB NEB 03/16/17 16:00 03/18/17 09:30 (Albuterol Neb) 2.5 mg Q2HR NEB PRN NEB 03/16/17 11:00 (D50w (Vial) Inj) 50 ml UNSCH PRN IV 03/16/17 11:00 (Glucagon Inj) 1 mg UNSCH PRN OTHER 03/16/17 11:00 (NovoLIN R SUPPLEMENTAL SCALE) 1 ACHS SLIDING SCALE SQ 03/16/17 11:00 03/18/17 06:44 Miscellaneous Information ALL NURSING DEPARTME... UNSCH PRN .XX 03/17/17 12:36 03/18/17 12:35 Vital Signs / I&O Vital Signs Date Time Temp Pulse Resp B/P (MAP) Pulse Ox O2 Delivery O2 Flow Rate FiO2 03/18/17 09:33 93 Nasal Cannula 2.00 03/18/17 08:00 97.6 82 20 116/65 (82) 95 03/18/17 04:00 77 03/18/17 04:00 97.9 93 18 118/78 (91) 91 03/18/17 03:05 81 03/18/17 00:00 78 03/18/17 00:00 99.2 78 19 139/74 (95) 93 03/17/17 20:27 95 Nasal Cannula 2.00 03/17/17 20:00 99.4 85 18 153/72 (99) 88 03/17/17 20:00 85 03/17/17 16:15 80 16 139/71 (93) 03/17/17 16:00 77 16 03/17/17 16:00 77 03/17/17 14:04 78 03/17/17 14:00 73 03/17/17 13:19 79 03/17/17 13:19 79 13 128/70 (89) 82 03/17/17 13:00 98.0 76 16 120/68 (85) 96 Nasal Cannula 2 03/17/17 12:45 78 16 123/65 (84) 95 Nasal Cannula 2 03/17/17 12:30 98.1 82 19 121/58 (79) 100 Nasal Cannula 3 I/O 03/17/17 03/17/17 03/17/17 03/18/17 03/18/17 03/18/17 06:59 14:59 22:59 06:59 14:59 22:59 Intake Total 2531 ml 300 ml 1821 ml Output Total 1100 ml 150 ml 300 ml Balance 1431 ml 150 ml 1521 ml Intake Oral 400 ml 780 ml IV Total 2131 ml 100 ml 1041 ml Other 200 ml Output Urine Total 1100 ml 150 ml 300 ml # Voids 2 # Bowel Movements 0 Physical Exam GENERAL: NAD, more alert SKIN: Warm and dry. HEAD: Atraumatic. Normocephalic. EYES: Pupils equal and round. No scleral icterus. No injection or drainage. ENT: No nasal bleeding or discharge. Mucous membranes pink and moist. NECK: Trachea midline. No JVD. CARDIOVASCULAR: Regular rate and rhythm. RESPIRATORY: No accessory muscle use. Clear to auscultation. Breath sounds equal bilaterally. GASTROINTESTINAL: Abdomen soft, non-tender, nondistended. Hepatic and splenic margins not palpable. MUSCULOSKELETAL: Extremities without clubbing, cyanosis, or edema. No obvious deformities. NEUROLOGICAL: Awake and alert. No obvious cranial nerve deficits. Motor grossly within normal limits. Five out of 5 muscle strength in the arms and legs. Normal speech. PSYCHIATRIC: Appropriate mood and affect; insight and judgment normal. Laboratory Laboratory Tests Test 03/18/17 07:00 White Blood Count 9.2 TH/MM3 Red Blood Count 2.65 MIL/MM3 Hemoglobin 7.9 GM/DL Hematocrit 23.6 % Mean Corpuscular Volume 89.2 FL Mean Corpuscular Hemoglobin 30.0 PG Mean Corpuscular Hemoglobin Concent 33.6 % Red Cell Distribution Width 19.8 % Platelet Count 133 TH/MM3 Mean Platelet Volume 8.1 FL Prothrombin Time 13.2 SEC Prothromb Time International Ratio 1.2 RATIO Blood Urea Nitrogen 47 MG/DL Creatinine 2.06 MG/DL Random Glucose 140 MG/DL Calcium Level 7.5 MG/DL Phosphorus Level 2.6 MG/DL Magnesium Level 2.3 MG/DL Sodium Level 147 MEQ/L Potassium Level 3.3 MEQ/L Chloride Level 116 MEQ/L Carbon Dioxide Level 20.9 MEQ/L Anion Gap 10 MEQ/L Estimat Glomerular Filtration Rate 31 ML/MIN Assessment and Plan Problem List: (1) GI bleed ICD Codes: K92.2 - Gastrointestinal hemorrhage, unspecified Status: Acute (2) Anemia ICD Codes: D64.9 - Anemia, unspecified Status: Acute (3) Coagulopathy ICD Codes: D68.9 - Coagulation defect, unspecified Status: Acute (4) NSTEMI (non-ST elevated myocardial infarction) ICD Codes: I21.4 - Non-ST elevation (NSTEMI) myocardial infarction Status: Acute (5) CAD (coronary artery disease) ICD Codes: I25.10 - Atherosclerotic heart disease of ruby coronary artery without angina pectoris (6) Hx of CABG ICD Codes: Z95.1 - Presence of aortocoronary bypass graft Assessment and Plan 1) Elevated troponin, most likely Type 2 due to Hbg being in the 5s 2) No further workup for NSTEMI due to GI Bleed 3) EGD per GI team Showing esophageal ulcer, continued on Protonix drip 4) Eventual ASA if possible, once cleared by GI 5) Restarted Coreg with hold parameters 6) ELIZABETH on probably CKD Con't to hold JANIYA-I, Lasix 7) Will plan to see on Tuesday if still here, if concerns over the weekend, please call covering physician Problem Qualifiers (1) GI bleed: Qualified Codes: K92.2 - Gastrointestinal hemorrhage, unspecified (2) Anemia: Qualified Codes: D62 - Acute posthemorrhagic anemia Jong Davis DO Mar 18, 2017 12:28
[2017-03-18] MEDS ORDERED: POTASSIUM CHLORIDE 20 MEQ CONTROLLED RELEASE TAB PO ONE (17:30)
--- NOTE | 2017-03-18 17:30 | PD.CONS ---
HPI Service nephrology Consult Requested By Reason for Consult Acute on chronic kidney disease. Primary Care Physician Dotty Holcomb History of Present Illness Mr. Nichols is a 76 year old male admitted with GI bleeding, his Hemoglobin was 5.1 on admission, INR was 17, creatinine was 2.99. Patient's baseline renal function is not known. He suffers from dementia. His creatinine has improved to 2.06. Patient is on NS at 84 ml/hour. He is also on Protonix drip. He had EGD which revealed esophageal ulcer. He received blood transfusions and anemia has improved. He has gained about 5 kg according to nursing charting. Review of Systems ROS Limitations: Clinical Condition Past Family Social History Allergies: Coded Allergies: No Known Allergies (Unverified , 03/15/17) Past Medical History Anemia Depression Congestive Heart Failure COPD GERD Hypertension History of pulmonary embolism on Coumadin Thyroid Disease Past Surgical History Past Surgical History Unobtainable, poor historian Reported Medications Active Reported Hydroxyzine Pamoate 25 Mg Cap 25 Mg PO Q6H PRN Loperamide (Loperamide HCl) 2 Mg Cap 2 Mg PO DIRECTED PRN One capsule after each loose stool. Not to exceed 8 capsules per day. Proair Hfa 8.5 GM Inh (Albuterol Sulfate) 90 Mcg/Act Aer 1 Puff INH Q4H PRN 108 mcg/actuation Lasix (Furosemide) 40 Mg Tab 40 Mg PO DAILY Levothyroxine (Levothyroxine Sodium) 50 Mcg Tab 50 Mcg PO DAILY Potassium Chloride ER (Potassium Chloride) 20 Meq Tab 20 Meq PO DAILY Lisinopril 2.5 Mg Tab 2.5 Mg PO DAILY Ranitidine (Ranitidine HCl) 150 Mg Tab 150 Mg PO DAILY Sucralfate 1 Gram Tab 1 Gm PO BID on empty stomach Sertraline (Sertraline HCl) 50 Mg Tab 50 Mg PO DAILY Daily-Juan Carlos/Iron/Beta-Antonio (Multiple Vitamins W/ Iron) 1 Tab Tab 1 Tab PO DAILY Sertraline (Sertraline HCl) 25 Mg Tab 25 Mg PO DAILY Carvedilol 3.125 Mg Tab 3.125 Mg PO BID Duoneb (Ipratropium-Albuterol Neb) 0.5-2.5 Mg/3 Ml Neb 1 Nebule INH Q12HR Warfarin 6 Mg Tab 6 Mg PO DAILY Mirtazapine 15 Mg Tab 15 Mg PO HS Iron (Ferrous Sulfate) 325 Mg Cap 325 Mg PO DAILY Active Ordered Medications Current Medications Medications (Trade) Dose Ordered Sig/Teodoro Route Start Time Stop Time Status Last Admin (NS Flush) 2 ml UNSCH PRN .XX 03/15/17 23:30 (NS Flush) 2 ml BID .XX 03/16/17 09:00 03/18/17 08:20 (Tylenol) 650 mg Q6H PRN PO 03/15/17 23:30 (Morphine Inj) 2 mg Q2H PRN IV 03/15/17 23:30 (Zofran Inj) 4 mg Q6H PRN IV 03/15/17 23:30 03/17/17 21:16 (Ambien) 5 mg HS PRN PO 03/15/17 23:30 Miscellaneous Information 1 Q361D XX 03/15/17 23:30 (Chlorhexidine 2% Cloth) 3 pack Taper DAILY@04 TOP 03/16/17 04:00 03/12/18 03:59 03/18/17 03:20 (Chlorhexidine 2% Cloth) 3 pack UNSCH PRN TOP 03/15/17 23:30 (Andria-Colace) 1 tab BID PO 03/16/17 09:00 03/18/17 08:13 (Milk Of Magnesia Liq) 30 ml Q12H PRN PO 03/15/17 23:30 (Senokot) 17.2 mg Q12H PRN PO 03/15/17 23:30 (Dulcolax Supp) 10 mg DAILY PRN RECTAL 03/15/17 23:30 (Lactulose Liq) 30 ml DAILY PRN PO 03/15/17 23:30 (Synthroid) 25 mcg DAILY@0600 PO 03/16/17 06:00 03/18/17 03:25 Pantoprazole Sodium 80 mg/ Sodium Chloride 100 ml @ 10 mls/hr Q10H IV 03/16/17 13:00 03/18/17 13:32 (Duoneb Neb) 1 ampule Q6HR NEB NEB 03/16/17 16:00 03/18/17 09:30 (Albuterol Neb) 2.5 mg Q2HR NEB PRN NEB 03/16/17 11:00 (D50w (Vial) Inj) 50 ml UNSCH PRN IV 03/16/17 11:00 (Glucagon Inj) 1 mg UNSCH PRN OTHER 03/16/17 11:00 (NovoLIN R SUPPLEMENTAL SCALE) 1 ACHS SLIDING SCALE SQ 03/16/17 11:00 03/18/17 06:44 (Coreg) 3.125 mg Q12HR PO 03/18/17 21:00 Family History not available. Social History no ETOH or tobacco. Physical Exam Vital Signs Vital Signs Date Time Temp Pulse Resp B/P (MAP) Pulse Ox O2 Delivery O2 Flow Rate FiO2 03/18/17 16:00 97.8 81 18 126/65 (85) 96 03/18/17 12:00 92 03/18/17 12:00 97.0 91 20 128/69 (88) 90 03/18/17 09:33 93 Nasal Cannula 2.00 03/18/17 08:00 97.6 82 20 116/65 (82) 95 03/18/17 08:00 79 03/18/17 04:00 77 03/18/17 04:00 97.9 93 18 118/78 (91) 91 03/18/17 03:05 81 03/18/17 00:00 78 03/18/17 00:00 99.2 78 19 139/74 (95) 93 03/17/17 20:27 95 Nasal Cannula 2.00 03/17/17 20:00 99.4 85 18 153/72 (99) 88 03/17/17 20:00 85 Physical Exam GENERAL: elderly male. He is awake, answers simple questions. SKIN: Warm and dry. HEAD: Normocephalic. EYES: No scleral icterus. No injection or drainage. NECK: Supple, trachea midline. No JVD or lymphadenopathy. CARDIOVASCULAR: Regular rate and rhythm without murmurs, gallops, or rubs. RESPIRATORY: bilateral wheezing, rhonchi GASTROINTESTINAL: Abdomen soft, non-tender, nondistended. MUSCULOSKELETAL: No cyanosis, or edema. BACK: Nontender without obvious deformity. No CVA tenderness. Laboratory Laboratory Tests Test 03/18/17 07:00 White Blood Count 9.2 Red Blood Count 2.65 Hemoglobin 7.9 Hematocrit 23.6 Mean Corpuscular Volume 89.2 Mean Corpuscular Hemoglobin 30.0 Mean Corpuscular Hemoglobin Concent 33.6 Red Cell Distribution Width 19.8 Platelet Count 133 Mean Platelet Volume 8.1 Prothrombin Time 13.2 Prothromb Time International Ratio 1.2 Blood Urea Nitrogen 47 Creatinine 2.06 Random Glucose 140 Calcium Level 7.5 Phosphorus Level 2.6 Magnesium Level 2.3 Sodium Level 147 Potassium Level 3.3 Chloride Level 116 Carbon Dioxide Level 20.9 Anion Gap 10 Estimat Glomerular Filtration Rate 31 Result Diagram: 03/18/17 0700 03/18/17 0700 Assessment and Plan Problem List: (1) Acute worsening of stage 3 chronic kidney disease ICD Codes: N18.3 - Chronic kidney disease, stage 3 (moderate) Plan: may have underlying stage III CKD, however baseline renal function is not known. ELIZABETH could be secondary to renal hypoperfusion due to GI bleeding, and hypotension. Renal US and UA were unremarkable. Taper off fluids. Encourage oral intake. Avoid nephrotoxic agents. Monitor urine output and renal function. (2) Hypokalemia ICD Codes: E87.6 - Hypokalemia Plan: Could be due to NS infusion, and increased distal secretion of potassium. Replacement ordered. (3) Hyperosmolality and hypernatremia ICD Codes: E87.0 - Hyperosmolality and hypernatremia Plan: Could be iatrogenic. Change IVF to 1/2 NS. (4) Anemia ICD Codes: D64.9 - Anemia, unspecified Status: Acute Plan: blood loss anemia, improved. Monitor. Obtain iron studies. (5) Coagulopathy ICD Codes: D68.9 - Coagulation defect, unspecified Status: Acute Plan: improved. Due to Warfarin. (6) GI bleed ICD Codes: K92.2 - Gastrointestinal hemorrhage, unspecified Status: Acute Plan: GI following. Assessment and Plan Thanks for the consult. Problem Qualifiers (1) Anemia: Qualified Codes: D62 - Acute posthemorrhagic anemia (2) GI bleed: Qualified Codes: K92.2 - Gastrointestinal hemorrhage, unspecified Sagar Mayfield MD Mar 18, 2017 17:30
--- NOTE | 2017-03-18 17:50 | HHI.GIFU ---
Subjective Remarks Pt resting in bed, Denies bleeding, n/v, pain. would like diet advanced. Objective Vitals I&O Vital Signs Date Time Temp Pulse Resp B/P (MAP) Pulse Ox O2 Delivery O2 Flow Rate FiO2 03/18/17 17:41 93 Nasal Cannula 2.00 03/18/17 16:00 97.8 81 18 126/65 (85) 96 03/18/17 12:00 92 03/18/17 12:00 97.0 91 20 128/69 (88) 90 03/18/17 09:33 93 Nasal Cannula 2.00 03/18/17 08:00 97.6 82 20 116/65 (82) 95 03/18/17 08:00 79 03/18/17 04:00 77 03/18/17 04:00 97.9 93 18 118/78 (91) 91 03/18/17 03:05 81 03/18/17 00:00 78 03/18/17 00:00 99.2 78 19 139/74 (95) 93 03/17/17 20:27 95 Nasal Cannula 2.00 03/17/17 20:00 99.4 85 18 153/72 (99) 88 03/17/17 20:00 85 I/O 03/17/17 03/17/17 03/17/17 03/18/17 03/18/17 03/18/17 07:00 15:00 23:00 07:00 15:00 23:00 Intake Total 2531 ml 300 ml 1821 ml Output Total 1100 ml 150 ml 300 ml Balance 1431 ml 150 ml 1521 ml Intake Oral 400 ml 780 ml IV Total 2131 ml 100 ml 1041 ml Other 200 ml Output Urine Total 1100 ml 150 ml 300 ml # Voids 2 # Bowel Movements 0 Laboratory Laboratory Tests Test 03/18/17 07:00 White Blood Count 9.2 Red Blood Count 2.65 Hemoglobin 7.9 Hematocrit 23.6 Mean Corpuscular Volume 89.2 Mean Corpuscular Hemoglobin 30.0 Mean Corpuscular Hemoglobin Concent 33.6 Red Cell Distribution Width 19.8 Platelet Count 133 Mean Platelet Volume 8.1 Prothrombin Time 13.2 Prothromb Time International Ratio 1.2 Blood Urea Nitrogen 47 Creatinine 2.06 Random Glucose 140 Calcium Level 7.5 Phosphorus Level 2.6 Magnesium Level 2.3 Sodium Level 147 Potassium Level 3.3 Chloride Level 116 Carbon Dioxide Level 20.9 Anion Gap 10 Estimat Glomerular Filtration Rate 31 Physical Exam HEENT: PERRL; normocephalic; atraumatic; no jaundice. CHEST: CTA CARDIAC: irr HR ABDOMEN: Soft, mildly distended, nontender; no hepatosplenomegaly; bowel sounds are present in all four quadrants. EXTREMITIES: No clubbing, cyanosis, or edema. 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 Pt brought to ER for diarrhea, generalized weakness. Had black tarry stool in ER. On coumadin at home for PE, was found to have severe anemia with HH of 5.1/15.3. S/P 4 units of PRBC s/p 1 unit FFP, Kcentra, and Vitamin K and this is 1.7 now. No further active bleeding. s/p EGD found large ulcer, esophagitis, gastritis. path benign. - Severe anemia, acute blood loss. stable since yesterday - Coagulopathy/Coumadin toxicity. INR of 17.1, s/p 1 unit FFP, Kcentra, and Vitamin K and this improved - Leukocytosis. improved - ELIZABETH, Creat 2.44 admission, nephrology following. - Elevated troponin with CHF, HTN, CAD, per CCM - Dementia/CVA, COPD, Hypothyroidism, DM per CCM - Hx PE, on coumadin as outpatient. Coumadin on hold for elevated INR/GIB. PLAN: - continue protonix - full liquids - Transfuse as necessary - Notify GI of active bleeding, - Supportive care - Further recommendations to follow based on results of above - Pt seen and examined by Dr Coffey and myself and this note is written on his behalf Geno Starks Mar 18, 2017 17:50
[2017-03-18] MEDS: CARVEDILOL 3.125 MG TAB PO SCH (21:24)
[2017-03-18] MEDS: SODIUM CHLOR 0.45% 1000 ML INJ 1,000 ML IV SCH (21:29)
[2017-03-19] VITALS (10 sets, daily range): BP systolic 122–137; BP diastolic 58–76; PULSE 61–88; RESP 16–20; TEMP 97.3–99.2; O2SAT 92–98
[2017-03-19] MEDS: CHLORHEXIDINE GLUCONATE 2 % 1 PACK (2 CLOTHS) TOP SCH (00:01)
[2017-03-19] MEDS: RESP: ALBUTEROL 2.5 MG/IPRATROPIUM 0.5 MG NEB (SCH) NEB ×4 (03:31→22:13)
[2017-03-19] MEDS: LEVOTHYROXINE SODIUM 25 MCG TAB PO SCH (05:25)
[2017-03-19] MEDS: INSULIN NovoLIN REGULAR SUPPLEMENTAL SCALE SQ SCH ×4 (05:25→20:57)
[2017-03-19 08:10] LABS: AUTOMATED NEUTROPHIL # 5.6 TH/MM3 (1.8-7.7); BASOPHIL % 0.3 % (0.0-2.0); EOSINOPHIL # 0.1 TH/MM3 (0-0.4); HEMATOCRIT 22.6 % (39.0-51.0); HEMO FLAGS DIFF FINAL; LYMPH % 10.4 % (9.0-44.0); LYMPHOCYTE # 0.7 TH/MM3 (1.0-4.8); MEAN CELL VOLUME 90.6 FL (80.0-100.0); MEAN CORPUSCULAR HEMOGLOBIN 29.5 PG (27.0-34.0); MEAN CORPUSCULAR HGB CONC 32.6 % (32.0-36.0); NEUT % 81.3 % (16.0-70.0); PLATELET COUNT 135 TH/MM3 (150-450); RED BLOOD COUNT 2.49 MIL/MM3 (4.50-5.90); RED CELL DISTRIBUTION WIDTH 20.1 % (11.6-17.2); WHITE BLOOD COUNT 6.9 TH/MM3 (4.0-11.0)
[2017-03-19 08:49] LABS: ANION GAP 7 MEQ/L (5-15); BICARBONATE 20.6 MEQ/L (21.0-32.0); BLOOD UREA NITROGEN 36 MG/DL (7-18); CHLORIDE 117 MEQ/L (98-107); GLOMERULAR FILTRATION RATE 32 ML/MIN (>89); SODIUM (NA) 145 MEQ/L (136-145); TRANSFERRIN IRON PROFILE 157 MG/DL (200-360)
[2017-03-19] MEDS: DOCUSATE SODIUM 50 MG/SENNA 8.6 MG TAB PO SCH ×2 (09:51→20:47)
[2017-03-19] MEDS: CARVEDILOL 3.125 MG TAB PO SCH ×2 (09:51→20:47)
[2017-03-19] MEDS: SODIUM CHLORIDE 0.9% FLUSH 10 ML FLUSH SCH ×2 (09:54→20:47)
[2017-03-19] MEDS: PANTOPRAZOLE INJ 80 MG in SODIUM CHLORIDE 0.9% INJ 100 ML IV SCH ×2 (09:59→20:47)
--- NOTE | 2017-03-19 12:55 | HHI.NPPN ---
Subjective History of Present Illness 76 year old male admitted with GI bleeding, his Hemoglobin was 5.1 on admission , INR was 17, creatinine was 2.99. Patient's baseline renal function is not known. He suffers from dementia. His creatinine has improved to 2.06. Additional Remarks Patient is alert, not in distress, still not eating well. Objective Data Data Vital Signs Date Time Temp Pulse Resp B/P (MAP) Pulse Ox O2 Delivery O2 Flow Rate FiO2 03/19/17 12:15 97.8 85 20 122/58 (79) 93 03/19/17 09:32 92 Nasal Cannula 2.00 03/19/17 08:52 97.3 88 20 132/75 (94) 92 03/19/17 04:00 61 03/19/17 04:00 97.4 72 18 129/76 (93) 96 03/19/17 00:00 98.5 81 18 125/72 (89) 98 03/19/17 00:00 79 03/18/17 22:26 96 Nasal Cannula 2.00 03/18/17 20:00 81 03/18/17 20:00 98.0 82 17 131/64 (86) 98 03/18/17 17:41 93 Nasal Cannula 2.00 03/18/17 16:00 97.8 81 18 126/65 (85) 96 -: 03/19/17 0743 03/19/17 0743 Physical Exam General Appearance: No Acute Distress, Comfortable Eyes Eye Exam: Pupils Equal Throat Throat Exam: Oral Mucosa [place] & Moist Pulmonary Resp Exam: Breath Sounds Equal, No Distress, Rhonchi, Decreased Bases Cardiology CV Exam: Regular, Normal Sinus Rhythm Gastrointestinal/Abdomen GI Exam: Soft, Non-Tender, Bowel Sounds Present, Distended Extremeties Extremities Exam: Trace Edema Neurologic Neuro Exam: Alert, Awake, Oriented Psychiatric Psych Exam: Appropriate Responses Assessment/Plan Problem List: (1) Acute worsening of stage 3 chronic kidney disease ICD Codes: N18.3 - Chronic kidney disease, stage 3 (moderate) Plan: may have underlying stage III CKD, however baseline renal function is not known. ELIZABETH could be secondary to renal hypoperfusion due to GI bleeding, and hypotension. Renal US and UA were unremarkable. Taper off fluids. Encourage oral intake. Avoid nephrotoxic agents. Monitor urine output and renal function. Creatinine is stable at 2.0, possibly his baseline. (2) Hypokalemia ICD Codes: E87.6 - Hypokalemia Plan: Could be due to NS infusion, and increased distal secretion of potassium. Replacement ordered. (3) Hyperosmolality and hypernatremia ICD Codes: E87.0 - Hyperosmolality and hypernatremia Plan: Could be iatrogenic. Change IVF to 1/2 NS. (4) Anemia ICD Codes: D64.9 - Anemia, unspecified Status: Acute Plan: blood loss anemia, improved. Monitor. Obtain iron studies. (5) Coagulopathy ICD Codes: D68.9 - Coagulation defect, unspecified Status: Acute Plan: improved. Due to Warfarin. (6) GI bleed ICD Codes: K92.2 - Gastrointestinal hemorrhage, unspecified Status: Acute Plan: GI following. Problem Qualifiers (1) Anemia: Qualified Codes: D62 - Acute posthemorrhagic anemia (2) GI bleed: Qualified Codes: K92.2 - Gastrointestinal hemorrhage, unspecified Sandy Bella MD Mar 19, 2017 12:55
--- NOTE | 2017-03-19 13:20 | HHI.PR ---
Subjective Remarks Written by Claudia Vieyra, acting as scribe for Dr. Serra on 03/19/17 at 13:12. Follow up diarrhea and generalized weakness. Patient seen and examined today, son at bedside. Alert and oriented x 2. Unaware of place. Denies any new acute events overnight. States diarrhea has resolved. Denies any ab pain, nausea or vomiting. Tolerating full liquid diet, requesting to be advanced. Denies any recent fever, chills, cough, shortness of breath, headache. Objective Vitals Vital Signs Date Time Temp Pulse Resp B/P (MAP) Pulse Ox O2 Delivery O2 Flow Rate FiO2 03/19/17 12:15 97.8 85 20 122/58 (79) 93 03/19/17 09:32 92 Nasal Cannula 2.00 03/19/17 08:52 97.3 88 20 132/75 (94) 92 03/19/17 04:00 61 03/19/17 04:00 97.4 72 18 129/76 (93) 96 03/19/17 00:00 98.5 81 18 125/72 (89) 98 03/19/17 00:00 79 03/18/17 22:26 96 Nasal Cannula 2.00 03/18/17 20:00 81 03/18/17 20:00 98.0 82 17 131/64 (86) 98 03/18/17 17:41 93 Nasal Cannula 2.00 03/18/17 16:00 97.8 81 18 126/65 (85) 96 I/O 03/18/17 03/18/17 03/18/17 03/19/17 03/19/17 03/19/17 07:00 15:00 23:00 07:00 15:00 23:00 Intake Total 480 ml Output Total 250 ml Balance 230 ml Intake Oral 480 ml Output Urine Total 250 ml # Voids 2 3 3 # Bowel Movements 3 3 Result Diagram: 03/19/17 0743 03/19/17 0743 Imaging Last Impressions Renal Ultrasound 03/16/17 0000 Signed Impressions: Service Date/Time: Thursday, March 16, 2017 13:26 - CONCLUSION: Negative for stone, mass or obstruction. Nasim Ramsay MD FACR Head CT 03/15/17 1800 Signed Impressions: Service Date/Time: Wednesday, March 15, 2017 18:21 - CONCLUSION: 1. No acute intracranial hemorrhage. 2. 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 3. Bilateral cortical atrophy. Chadd Vásquez MD Chest X-Ray 03/15/17 1800 Signed Impressions: Service Date/Time: Wednesday, March 15, 2017 18:02 - CONCLUSION: No acute disease. Chadd Vásquez MD Objective Remarks GENERAL: Well-nourished well-developed, male patient. Lying in bed in no acute distress. SKIN: Warm and dry. No rash. HEENT: Normocephalic. Pupils equal and round and reactive to light. EOMs intact. Mucous membranes pink and moist. CARDIOVASCULAR: Regular rate and rhythm. No murmur appreciated. RESPIRATORY: Right lower lung expiratory wheeze. Breath sounds equal bilaterally. GASTROINTESTINAL: Abdomen soft, non-tender, nondistended. Bowel sounds x4. MUSCULOSKELETAL: No obvious deformities. No clubbing or cyanosis. No edema. NEUROLOGICAL: Awake and alert. No focal neurological deficits. Moves upper and lower extremities spontaneously. Normal speech. Strength 5/5. PSYCHIATRIC: Alert, answers questions. A/P Assessment and Plan Dementia disorder NOS Left basal ganglia CVA Depression NOS - Holding mirtazapine 15 mg at night. - Holding sertraline 75 mg by mouth daily - Holding hydroxyazine 25 mg as needed Chronic systolic heart failure ejection fraction 35% Hypertension History of CABG Elevated troponin currently 4.1 likely type II non-STEMI secondary to demand ischemia Atrial fibrillation? - Likely demand ischemia from low blood volume. - Echocardiogram 03/16 revealed EF 35-40%. Moderate MR/TR. Trace AR. Mild [place]. - Cardiology following patient. No acute interventions at this time. - Holding furosemide 40 mg daily and potassium chloride 20 mEq daily - Restarted carvedilol 3.125 mg PO daily by cardiology. - Holding lisinopril 2.5 mill grams daily light of GI bleed/acute kidney injury. - EKG ordered. Appears regular on telemetry. History COPD - Nasal cannula to maintain saturations greater than equal to 92% - Incentive spirometry while awake - On albuterol/ipratropium aerosols every 12 hours and nursing along with albuterol inhaler when necessary Gastroesophageal reflux disease - Currently on pantoprazole drip at 8 mg an hour. - EGD done 03/17 showing large ulcer at the Esopho-gastric anastomosis. Biopsy pending. Hypothyroidism Diabetes mellitus - Continue levothyroxine 50 mcg by mouth daily. TSH WNL. - Sliding-scale insulin to maintain euglycemia/low regimen of Novolin R with Accu-Cheks every 6 hours Acute kidney injury suspect secondary to ATN due to severe anemia - Unknown baseline creatinine. - Avoid nephrotoxic drugs. - Renal ultrasound revealed no hydronephrosis. - Urine electrolytes/eosinophils negative - Monitor urine output - Accurate I's and O's - Nephrology consulted and has seen patient, recommendations to wean off fluids, monitor intake and output with possible underlying CKD III. Acute blood loss anemia Leukocytosis Supratherapeutic INR secondary to warfarin History of pulmonary embolism - Received K Centra 3702 milligrams in ED 1. 10 mg of vitamin K. 1 FFP. Last INR 1.2. - Status post 3 units PRBCs. Repeat hemoglobin 7.2. Repeat CBC in am. Follow. - Serial hemoglobins - Holding warfarin, Spoke with GI, patient at risk for bleeding, another unit of PRBC ordered. Will follow. - Previously on iron sulfate 325 mg by mouth daily. Hypokalemia, status post replacement. K 4.0 today. GI prophylaxis: Pantoprazole drip. Appreciate GI recommendations. DVT prophylaxis: SCD/pharmacological prophylaxis contraindicated with active bleeding This note was transcribed by scribe [Claudia Vieyra ]. I, Dr. Yohannes Serra personally performed the history, physical exam, and medical decision making; and confirmed the accuracy of the information in the transcribed note. Authenticated by Dr. Yohannes Serra on 03/19/17 at 13:28. Claudia Vieyra Mar 19, 2017 13:20 Yohannes Serra MD Mar 19, 2017 13:28
[2017-03-19] MEDS: SODIUM CHLOR 0.45% 1000 ML INJ 1,000 ML IV SCH (14:32)
--- NOTE | 2017-03-19 14:44 | HHI.GIFU ---
Subjective Remarks Patient is sitting up in chair, accompanied by family members, tolerating soft okay, no nausea, no vomiting no abd pain, no hematemesis or melena (Julian Rod) Objective Vitals I&O Vital Signs Date Time Temp Pulse Resp B/P (MAP) Pulse Ox O2 Delivery O2 Flow Rate FiO2 03/19/17 12:15 97.8 85 20 122/58 (79) 93 03/19/17 09:32 92 Nasal Cannula 2.00 03/19/17 08:52 97.3 88 20 132/75 (94) 92 03/19/17 04:00 61 03/19/17 04:00 97.4 72 18 129/76 (93) 96 03/19/17 00:00 98.5 81 18 125/72 (89) 98 03/19/17 00:00 79 03/18/17 22:26 96 Nasal Cannula 2.00 03/18/17 20:00 81 03/18/17 20:00 98.0 82 17 131/64 (86) 98 03/18/17 17:41 93 Nasal Cannula 2.00 03/18/17 16:00 97.8 81 18 126/65 (85) 96 I/O 03/18/17 03/18/17 03/18/17 03/19/17 03/19/17 03/19/17 07:00 15:00 23:00 07:00 15:00 23:00 Intake Total 480 ml 720 ml Output Total 250 ml Balance 230 ml 720 ml Intake Oral 480 ml 720 ml Output Urine Total 250 ml # Voids 2 3 3 1 # Bowel Movements 3 3 Laboratory Laboratory Tests Test 03/19/17 07:43 White Blood Count 6.9 Red Blood Count 2.49 Hemoglobin 7.3 Hematocrit 22.6 Mean Corpuscular Volume 90.6 Mean Corpuscular Hemoglobin 29.5 Mean Corpuscular Hemoglobin Concent 32.6 Red Cell Distribution Width 20.1 Platelet Count 135 Mean Platelet Volume 7.7 Neutrophils (%) (Auto) 81.3 Lymphocytes (%) (Auto) 10.4 Monocytes (%) (Auto) 7.0 Eosinophils (%) (Auto) 1.0 Basophils (%) (Auto) 0.3 Neutrophils # (Auto) 5.6 Lymphocytes # (Auto) 0.7 Monocytes # (Auto) 0.5 Eosinophils # (Auto) 0.1 Basophils # (Auto) 0.0 CBC Comment DIFF FINAL Differential Comment Blood Urea Nitrogen 36 Creatinine 2.01 Random Glucose 119 Calcium Level 7.5 Sodium Level 145 Potassium Level 4.0 Chloride Level 117 Carbon Dioxide Level 20.6 Anion Gap 7 Estimat Glomerular Filtration Rate 32 Iron Level 14 Total Iron Binding Capacity 220 Percent Iron Saturation 6.4 Imaging Last Impressions Renal Ultrasound 03/16/17 0000 Signed Impressions: Service Date/Time: Thursday, March 16, 2017 13:26 - CONCLUSION: Negative for stone, mass or obstruction. Nasim Ramsay MD FACR Head CT 03/15/17 1800 Signed Impressions: Service Date/Time: Wednesday, March 15, 2017 18:21 - CONCLUSION: 1. No acute intracranial hemorrhage. 2. 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 3. Bilateral cortical atrophy. Chadd Vásquez MD Chest X-Ray 03/15/17 1800 Signed Impressions: Service Date/Time: Wednesday, March 15, 2017 18:02 - CONCLUSION: No acute disease. Chadd Vásquez MD Physical Exam HEENT: PERRL; normocephalic; atraumatic; no jaundice. CHEST: CTA CARDIAC: irr HR ABDOMEN: Soft, mildly distended, nontender; no hepatosplenomegaly; bowel sounds are present in all four quadrants. EXTREMITIES: No clubbing, cyanosis, or edema. 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 SENIOR CLINICAL RESEARCH SCIENTIST: Alert and oriented (Julian Rod AUDIO VISUAL COLLECTIONS COORDINATOR) Assessment and Plan Plan ASSESSMENT: - GIB, Melena. Pt brought to ER for diarrhea, generalized weakness. Had black tarry stool in ER. On Coumadin at home for PE, was found to have severe anemia with HH of 5.1/15.3. S/P 4 units of PRBC s/p 1 unit FFP, Kcentra, and Vitamin K No further active bleeding. s/p EGD found large ulcer, esophagitis, gastritis. path benign. - Severe anemia, acute blood loss. a decline in hgb 7.3 today, no bleeding reported - Coagulopathy/Coumadin toxicity. INR of 17.1, s/p 1 unit FFP, Kcentra, and Vitamin K and this improved - Leukocytosis. improved - ELIZABETH, Creat 2.44 admission, nephrology following. - Elevated troponin with CHF, HTN, CAD, per CCM - Dementia/CVA, COPD, Hypothyroidism, DM per CCM - Hx PE, on Coumadin as outpatient. Coumadin on hold for elevated INR/GIB. PLAN: - Soft diet - cont. Protonix - Transfuse one unit of blood - Notify GI of active bleeding, - Patient is high risk for bleeding, would benefit of avoiding anticoagulant, if he must start Coumadin, we recommend low therapeutic range - Supportive care - Further recommendations to follow based on results of above - Pt seen and examined by Dr Coffey and myself and this note is written on his behalf (Julian Rod) Plan Pt has been on protonix drip for 5 days. Should be OK to stop the drip once this current bag runs out and start Protonix 40mg BID tomorrow. Ok to start coumadin in low therapeutic range. (Royer Coffey MD) Julian Rod Mar 19, 2017 14:44 Royer Coffey MD Mar 19, 2017 21:34
[2017-03-19] MEDS ORDERED: SODIUM CHLOR 0.9% 250 ML INJ 250 ML IV ONE (14:45)
[2017-03-20] VITALS (14 sets, daily range): BP systolic 117–141; BP diastolic 59–75; PULSE 75–93; RESP 16–21; TEMP 96.6–99.3; O2SAT 91–97
[2017-03-20] MEDS: RESP: ALBUTEROL 2.5 MG/IPRATROPIUM 0.5 MG NEB (SCH) NEB ×2 (03:17→08:29)
[2017-03-20] MEDS: CHLORHEXIDINE GLUCONATE 2 % 1 PACK (2 CLOTHS) TOP SCH (04:00)
[2017-03-20] MEDS: PANTOPRAZOLE SOD 40 MG DELAYED RELEASE TAB PO SCH ×2 (05:56→16:08)
[2017-03-20] MEDS: LEVOTHYROXINE SODIUM 25 MCG TAB PO SCH (05:56)
[2017-03-20] MEDS: INSULIN NovoLIN REGULAR SUPPLEMENTAL SCALE SQ SCH ×4 (06:10→20:41)
[2017-03-20] MEDS: SODIUM CHLORIDE 0.9% FLUSH 10 ML FLUSH SCH ×2 (07:44→20:27)
[2017-03-20] MEDS: CARVEDILOL 3.125 MG TAB PO SCH ×2 (07:44→20:31)
[2017-03-20] MEDS: SODIUM CHLOR 0.45% 1000 ML INJ 1,000 ML IV SCH ×2 (07:44→22:34)
[2017-03-20] MEDS: DOCUSATE SODIUM 50 MG/SENNA 8.6 MG TAB PO SCH ×2 (07:45→20:31)
[2017-03-20 08:42] LABS: AUTOMATED NEUTROPHIL # 6.6 TH/MM3 (1.8-7.7); BASOPHIL # 0.1 TH/MM3 (0-0.2); BASOPHIL % 0.8 % (0.0-2.0); EOSINOPHIL # 0.2 TH/MM3 (0-0.4); HEMATOCRIT 26.9 % (39.0-51.0); HEMO FLAGS DIFF FINAL; LYMPH % 10.5 % (9.0-44.0); LYMPHOCYTE # 0.9 TH/MM3 (1.0-4.8); MEAN CELL VOLUME 92.3 FL (80.0-100.0); MEAN CORPUSCULAR HEMOGLOBIN 30.1 PG (27.0-34.0); MEAN CORPUSCULAR HGB CONC 32.6 % (32.0-36.0); MONO % 8.5 % (0.0-8.0); NEUT % 78.2 % (16.0-70.0); PLATELET COUNT 144 TH/MM3 (150-450); RED BLOOD COUNT 2.92 MIL/MM3 (4.50-5.90); RED CELL DISTRIBUTION WIDTH 19.4 % (11.6-17.2); WHITE BLOOD COUNT 8.4 TH/MM3 (4.0-11.0)
--- NOTE | 2017-03-20 08:49 | HHI.PR ---
Subjective Remarks Much more awake and alert slowly improving according to son Discussed with patient and RN and son Has had diet and is tolerating it well Needs physical therapy and occupational therapy Hopefully home in the next 24-48 hours will probably need home health versus SNF PT and OT to eval and treat A.m. labs May need home health care Objective Vitals Vital Signs Date Time Temp Pulse Resp B/P (MAP) Pulse Ox O2 Delivery O2 Flow Rate FiO2 03/20/17 04:00 76 03/20/17 02:44 98.7 82 16 130/68 92 03/20/17 00:10 96.6 83 16 117/59 91 03/20/17 00:00 75 03/19/17 23:48 97.5 86 16 137/64 93 03/19/17 22:15 Nasal Cannula 2.00 03/19/17 20:00 77 03/19/17 20:00 98.5 81 18 122/62 (82) 96 03/19/17 16:26 99.2 76 19 131/62 (85) 94 03/19/17 12:15 97.8 85 20 122/58 (79) 93 03/19/17 12:00 76 03/19/17 09:32 92 Nasal Cannula 2.00 03/19/17 08:52 97.3 88 20 132/75 (94) 92 I/O 03/19/17 03/19/17 03/19/17 03/20/17 03/20/17 03/20/17 07:00 15:00 23:00 07:00 15:00 23:00 Intake Total 720 ml 254 ml Output Total 150 ml Balance 720 ml 104 ml Intake Oral 720 ml Packed Cells 250 ml Blood Product IV Normal Saline Flush 4 ml Output Urine Total 150 ml # Voids 3 1 3 1 # Bowel Movements 3 2 2 Result Diagram: 03/19/17 0743 03/19/17 0743 Other Results Laboratory Tests Test 03/17/17 09:12 03/18/17 07:00 03/19/17 07:43 03/20/17 07:33 White Blood Count 9.5 TH/MM3 9.2 TH/MM3 6.9 TH/MM3 Red Blood Count 2.65 MIL/MM3 2.65 MIL/MM3 2.49 MIL/MM3 Hemoglobin 7.7 GM/DL 7.9 GM/DL 7.3 GM/DL Hematocrit 23.4 % 23.6 % 22.6 % Mean Corpuscular Volume 88.6 FL 89.2 FL 90.6 FL Mean Corpuscular Hemoglobin 29.3 PG 30.0 PG 29.5 PG Mean Corpuscular Hemoglobin Concent 33.0 % 33.6 % 32.6 % Red Cell Distribution Width 19.1 % 19.8 % 20.1 % Platelet Count 118 TH/MM3 133 TH/MM3 135 TH/MM3 Mean Platelet Volume 7.2 FL 8.1 FL 7.7 FL Neutrophils (%) (Auto) 80.6 % 81.3 % Lymphocytes (%) (Auto) 11.2 % 10.4 % Monocytes (%) (Auto) 7.1 % 7.0 % Eosinophils (%) (Auto) 0.8 % 1.0 % Basophils (%) (Auto) 0.3 % 0.3 % Neutrophils # (Auto) 7.7 TH/MM3 5.6 TH/MM3 Lymphocytes # (Auto) 1.1 TH/MM3 0.7 TH/MM3 Monocytes # (Auto) 0.7 TH/MM3 0.5 TH/MM3 Eosinophils # (Auto) 0.1 TH/MM3 0.1 TH/MM3 Basophils # (Auto) 0.0 TH/MM3 0.0 TH/MM3 CBC Comment DIFF FINAL DIFF FINAL Differential Comment Prothrombin Time 15.3 SEC 13.2 SEC Prothromb Time International Ratio 1.4 RATIO 1.2 RATIO Activated Partial Thromboplast Time 34.7 SEC Fibrinogen 335 mg/dL Blood Urea Nitrogen 64 MG/DL 47 MG/DL 36 MG/DL Creatinine 2.08 MG/DL 2.06 MG/DL 2.01 MG/DL Random Glucose 128 MG/DL 140 MG/DL 119 MG/DL Total Protein 5.3 GM/DL Albumin 2.6 GM/DL Calcium Level 7.5 MG/DL 7.5 MG/DL 7.5 MG/DL Phosphorus Level 3.3 MG/DL 2.6 MG/DL Magnesium Level 2.2 MG/DL 2.3 MG/DL Alkaline Phosphatase 55 U/L Aspartate Amino Transf (AST/SGOT) 29 U/L Alanine Aminotransferase (ALT/SGPT) 16 U/L Total Bilirubin 0.5 MG/DL Sodium Level 147 MEQ/L 147 MEQ/L 145 MEQ/L Potassium Level 3.4 MEQ/L 3.3 MEQ/L 4.0 MEQ/L Chloride Level 116 MEQ/L 116 MEQ/L 117 MEQ/L Carbon Dioxide Level 21.3 MEQ/L 20.9 MEQ/L 20.6 MEQ/L Anion Gap 10 MEQ/L 10 MEQ/L 7 MEQ/L Estimat Glomerular Filtration Rate 31 ML/MIN 31 ML/MIN 32 ML/MIN Lactic Acid Level 1.5 mmol/L Thyroid Stimulating Hormone 3rd Gen 3.420 uIU/ML Ferritin 48 NG/ML Iron Level 14 MCG/DL Total Iron Binding Capacity 220 MCG/DL Percent Iron Saturation 6.4 % Imaging Last Impressions Renal Ultrasound 03/16/17 0000 Signed Impressions: Service Date/Time: Thursday, March 16, 2017 13:26 - CONCLUSION: Negative for stone, mass or obstruction. Nasim Ramsay MD FACR Head CT 03/15/17 1800 Signed Impressions: Service Date/Time: Wednesday, March 15, 2017 18:21 - CONCLUSION: 1. No acute intracranial hemorrhage. 2. 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 3. Bilateral cortical atrophy. Chadd Vásquez MD Chest X-Ray 03/15/17 1800 Signed Impressions: Service Date/Time: Wednesday, March 15, 2017 18:02 - CONCLUSION: No acute disease. Chadd Vásquez MD Objective Remarks GENERAL: Awake alert and talkative and cooperative tolerating a diet at this time SKIN: Warm and dry. HEAD: Atraumatic. Normocephalic. EYES: Pupils equal and round. No scleral icterus. No injection or drainage. Extraocular muscles grossly intact ENT: No nasal bleeding or discharge. Mucous membranes pink and moist. Tongue is midline NECK: Trachea midline. No JVD. Neck is supple CARDIOVASCULAR: Regular rate and rhythm. S1-S2 no S3 or S4 no heave or thrill or rub or gallop RESPIRATORY: No accessory muscle use. Clear to auscultation. Breath sounds equal bilaterally. GASTROINTESTINAL: Abdomen soft, non-tender, nondistended. Hepatic and splenic margins not palpable. MUSCULOSKELETAL: Extremities without clubbing, cyanosis, or edema. No obvious deformities. NEUROLOGICAL: Awake and alert. No obvious cranial nerve deficits. Motor grossly within normal limits. 4 out of 5 muscle strength in the arms and legs. Normal speech. PSYCHIATRIC: Appropriate mood and affect; insight and judgment normal. Medications and IVs Current Medications Sodium Chloride 250 ml @ 15 mls/hr ONCE ONCE IV ; Start 03/15/17 at 19:00; Stop 03/16/17 at 11:39; Status DC Phytonadione (Vitamin K Inj) 10 mg ONCE ONCE SQ Last administered on 19:09; Start 03/15/17 at 19:00; Stop 03/15/17 at 19:01; Status DC Sodium Chloride 500 ml @ 500 mls/hr BOLUS ONCE IV Last administered on 19:09; Start 03/15/17 at 19:00; Stop 03/15/17 at 19:59; Status DC Prothrombin Complex Concent (Human) 3704 units/Syringe / Bag 0 ml @ 500 mls/hr ONCE ONCE IV Last administered on 03/15/17 20:35; Start 03/15/17 at 20:30; Stop 03/15/17 at 20:31; Status DC Sodium Chloride 250 ml @ 15 mls/hr ONCE ONCE IV ; Start 03/15/17 at 19:45; Stop 03/16/17 at 12:24; Status DC Sodium Chloride 1,000 ml @ 84 mls/hr [id number] IV Last administered on 03/18/17 06:35; Start 03/15/17 at 23:24; Stop 03/18/17 at 17:12; Status DC Sodium Chloride (NS Flush) 2 ml UNSCH PRN .XX FLUSH AFTER USING IV ACCESS; Start 03/15/17 at 23:30 Sodium Chloride (NS Flush) 2 ml BID .XX Last administered on 03/19/17 09:54; Start 03/16/17 at 09:00 Acetaminophen (Tylenol) 650 mg Q6H PRN PO PAIN 1-10 AND/OR FEVER >101F; Start 03/15/17 at 23:30 Morphine Sulfate (Morphine Inj) 2 mg Q2H PRN IV PAIN SCALE 6 TO 10; Start 03/15 at 23:30 Pantoprazole Sodium (Protonix Inj) 40 mg Q12H IV Last administered on 01:16; Start 03/15/17 at 23:30; Stop 03/16/17 at 10:37; Status DC Ondansetron HCl (Zofran Inj) 4 mg Q6H PRN IV NAUSEA OR VOMITING Last administered on 03/17/17 21:16; Start 03/15/17 at 23:30 Zolpidem Tartrate (Ambien) 5 mg HS PRN PO INSOMNIA; Start 03/15/17 at 23:30 Albuterol/ Ipratropium (Duoneb Neb) 1 ampule Q2HR NEB PRN INH WHEEZING; Start 03/15/17 at 23:30; Stop 03/16/17 at 10:59; Status DC Miscellaneous Information 1 Q361D XX ; Start 03/15/17 at 23:30 Chlorhexidine Gluconate (Chlorhexidine 2% Cloth) 3 pack Taper DAILY@04 TOP Last administered on 03/18/17 03:20; Start 03/16/17 at 04:00; Stop 03/12/18 at 03:59 Chlorhexidine Gluconate (Chlorhexidine 2% Cloth) 3 pack UNSCH PRN TOP HYGIENIC CARE; Start 03/15/17 at 23:30 Senna/Docusate Sodium (Andria-Colace) 1 tab BID PO Last administered on 03/19/17 09:51; Start 03/16/17 at 09:00 Magnesium Hydroxide (Milk Of Magnesia Liq) 30 ml Q12H PRN PO MILD - MODERATE CONSTIPATION; Start 03/15/17 at 23:30 Sennosides (Senokot) 17.2 mg Q12H PRN PO MODERATE - SEVERE CONSTIPATION; Start 03/15/17 at 23:30 Bisacodyl (Dulcolax Supp) 10 mg DAILY PRN RECTAL SEVERE CONSITIPATION; Start at 23:30 Lactulose (Lactulose Liq) 30 ml DAILY PRN PO SEVERE CONSITIPATION; Start at 23:30 Levothyroxine Sodium (Synthroid) 25 mcg DAILY@0600 PO Last administered on 05:56; Start 03/16/17 at 06:00 Pantoprazole Sodium 80 mg/ Sodium Chloride 35 ml @ 420 mls/hr Q5M ONCE IV Last administered on 03/16/17 13:17; Start 03/16/17 at 14:00; Stop 03/16/17 at 14:04; Status DC Pantoprazole Sodium 80 mg/ Sodium Chloride 100 ml @ 10 mls/hr Q10H IV Last administered on 03/19/17 20:47; Start 03/16/17 at 13:00; Stop 03/19/17 at 21:32; Status DC Albuterol/ Ipratropium (Duoneb Neb) 1 ampule Q6HR NEB NEB Last administered on 03/20/17 08:29; Start 03/16/17 at 16:00 Albuterol Sulfate (Albuterol Neb) 2.5 mg Q2HR NEB PRN NEB DYSPNEA; Start at 11:00 Dextrose (D50w (Vial) Inj) 50 ml UNSCH PRN IV HYPOGLYCEMIA-SEE COMMENTS; Start 03/16/17 at 11:00 Glucagon (Glucagon Inj) 1 mg UNSCH PRN OTHER HYPOGLYCEMIA-SEE COMMENTS; Start 03/16/17 at 11:00 Insulin Human Regular (NovoLIN R SUPPLEMENTAL SCALE) 1 ACHS SLIDING SCALE SQ Last administered on 03/20/17 06:10; Start 03/16/17 at 11:00 Propofol (Diprivan 200 Mg/20 ml Inj) 100 mg STK-MED ONCE IV ; Start 03/17/17 at 14:10; Stop 03/17/17 at 14:11; Status DC Miscellaneous Information ALL NURSING DEPARTME... UNSCH PRN .XX SEE LABEL COMMENTS; Start 03/17/17 at 12:36; Stop 03/18/17 at 12:35; Status DC Ketamine HCl (Ketalar Inj) 10 mg STK-MED ONCE IV ; Start 03/17/17 at 12:00; Stop 03/18/17 at 08:18; Status DC Potassium Bicarb/ Potassium Chloride (K-Lyte Cl Eff) 50 meq ONCE ONCE PO Last administered on 03/18/17 12:05; Start 03/18/17 at 10:45; Stop 03/18/17 at 10: 46; Status DC Carvedilol (Coreg) 3.125 mg Q12HR PO Last administered on 03/20/17 07:44; Start 03/18/17 at 21:00 Sodium Chloride 1,000 ml @ 60 mls/hr [id number] IV Last administered on 03/20/17 07:44; Start 03/18/17 at 17:15 Potassium Chloride (KCl) 40 meq ONCE ONCE PO Last administered on 03/18/17 21: 24; Start 03/18/17 at 17:30; Stop 03/18/17 at 17:31; Status DC Sodium Chloride 250 ml @ 15 mls/hr ONCE ONCE IV ; Start 03/19/17 at 14:45; Stop 03/20/17 at 07:24; Status DC Pantoprazole Sodium (Protonix) 40 mg BIDAC PO Last administered on 03/20/17t 05: 56; Start 03/20/17 at 07:00 A/P Problem List: (1) Acute worsening of stage 3 chronic kidney disease ICD Code: N18.3 - Chronic kidney disease, stage 3 (moderate) (2) CAD (coronary artery disease) ICD Code: I25.10 - Atherosclerotic heart disease of [place] coronary artery without angina pectoris (3) NSTEMI (non-ST elevated myocardial infarction) ICD Code: I21.4 - Non-ST elevation (NSTEMI) myocardial infarction Status: Acute (4) Anemia ICD Code: D64.9 - Anemia, unspecified Status: Acute Assessment and Plan Dementia disorder NOS Left basal ganglia CVA Depression NOS - Holding mirtazapine 15 mg at night. - Holding sertraline 75 mg by mouth daily - Holding hydroxyazine 25 mg as needed Chronic systolic heart failure ejection fraction 35% Hypertension History of CABG Elevated troponin currently 4.1 likely type II non-STEMI secondary to demand ischemia Atrial fibrillation? - Likely demand ischemia from low blood volume. - Echocardiogram 03/16 revealed EF 35-40%. Moderate MR/TR. Trace AR. Mild OR. - Cardiology following patient. No acute interventions at this time. - Holding furosemide 40 mg daily and potassium chloride 20 mEq daily - Restarted carvedilol 3.125 mg PO daily by cardiology. - Holding lisinopril 2.5 mill grams daily light of GI bleed/acute kidney injury. - EKG ordered. Appears regular on telemetry. History COPD - Nasal cannula to maintain saturations greater than equal to 92% - Incentive spirometry while awake - On albuterol/ipratropium aerosols every 12 hours and nursing along with albuterol inhaler when necessary Gastroesophageal reflux disease - Currently on pantoprazole drip at 8 mg an hour. - EGD done 03/17 showing large ulcer at the Esopho-gastric anastomosis. Biopsy pending. Hypothyroidism Diabetes mellitus - Continue levothyroxine 50 mcg by mouth daily. TSH WNL. - Sliding-scale insulin to maintain euglycemia/low regimen of Novolin R with Accu-Cheks every 6 hours Acute kidney injury suspect secondary to ATN due to severe anemia - Unknown baseline creatinine. - Avoid nephrotoxic drugs. - Renal ultrasound revealed no hydronephrosis. - Urine electrolytes/eosinophils negative - Monitor urine output - Accurate I's and O's - Nephrology consulted and has seen patient, recommendations to wean off fluids, monitor intake and output with possible underlying CKD III. Acute blood loss anemia Leukocytosis Supratherapeutic INR secondary to warfarin History of pulmonary embolism - Received K Centra 3702 milligrams in ED 1. 10 mg of vitamin K. 1 FFP. Last INR 1.2. - Status post 3 units PRBCs. Repeat hemoglobin 7.2. Repeat CBC in am. Follow. - Serial hemoglobins - Holding warfarin, Spoke with GI, patient at risk for bleeding, another unit of PRBC ordered. Will follow. - Previously on iron sulfate 325 mg by mouth daily. Hypokalemia, status post replacement. K 4.0 today. GI prophylaxis: Pantoprazole drip. Appreciate GI recommendations. DVT prophylaxis: SCD/pharmacological prophylaxis contraindicated with active bleeding AM LABS, FOLLOW CBC, CMP AND MAG AND PHOS PT AND OT TO EVAL AND TREAT DW RN AND PT AND SON Problem Qualifiers (1) Anemia: Qualified Codes: D62 - Acute posthemorrhagic anemia Nasim Padron DO Mar 20, 2017 08:49
[2017-03-20 08:51] LABS: BICARBONATE 20.1 MEQ/L (21.0-32.0); POTASSIUM 3.6 MEQ/L (3.5-5.1)
[2017-03-20] MEDS: guaiFENesin E.R. 600 MG TAB PO SCH ×2 (11:05→20:32)
--- NOTE | 2017-03-20 12:55 | HHI.GIFU ---
Subjective Remarks Lying in bed in no apparent distress. Patient reports he is doing well. Denies abdominal pain. No N/V. Tolerating soft diet. Objective Vitals I&O Vital Signs Date Time Temp Pulse Resp B/P (MAP) Pulse Ox O2 Delivery O2 Flow Rate FiO2 03/20/17 12:04 99.3 77 20 141/68 (92) 96 03/20/17 11:42 77 03/20/17 09:43 97 Nasal Cannula 2.00 03/20/17 08:41 98.8 77 21 129/61 (83) 96 03/20/17 08:29 97 Nasal Cannula 2.00 03/20/17 08:07 82 03/20/17 04:00 76 03/20/17 02:44 98.7 82 16 130/68 92 03/20/17 00:10 96.6 83 16 117/59 91 03/20/17 00:00 75 03/19/17 23:48 97.5 86 16 137/64 93 03/19/17 22:15 Nasal Cannula 2.00 03/19/17 20:00 77 03/19/17 20:00 98.5 81 18 122/62 (82) 96 03/19/17 16:26 99.2 76 19 131/62 (85) 94 I/O 03/19/17 03/19/17 03/19/17 03/20/17 03/20/17 03/20/17 07:00 15:00 23:00 07:00 15:00 23:00 Intake Total 720 ml 254 ml Output Total 150 ml Balance 720 ml 104 ml Intake Oral 720 ml Packed Cells 250 ml Blood Product IV Normal Saline Flush 4 ml Output Urine Total 150 ml # Voids 3 1 3 1 # Bowel Movements 3 2 2 Laboratory Laboratory Tests Test 03/20/17 07:33 White Blood Count 8.4 Red Blood Count 2.92 Hemoglobin 8.8 Hematocrit 26.9 Mean Corpuscular Volume 92.3 Mean Corpuscular Hemoglobin 30.1 Mean Corpuscular Hemoglobin Concent 32.6 Red Cell Distribution Width 19.4 Platelet Count 144 Mean Platelet Volume 8.2 Neutrophils (%) (Auto) 78.2 Lymphocytes (%) (Auto) 10.5 Monocytes (%) (Auto) 8.5 Eosinophils (%) (Auto) 2.0 Basophils (%) (Auto) 0.8 Neutrophils # (Auto) 6.6 Lymphocytes # (Auto) 0.9 Monocytes # (Auto) 0.7 Eosinophils # (Auto) 0.2 Basophils # (Auto) 0.1 CBC Comment DIFF FINAL Differential Comment Blood Urea Nitrogen 30 Creatinine 2.08 Random Glucose 130 Calcium Level 7.6 Sodium Level 142 Potassium Level 3.6 Chloride Level 114 Carbon Dioxide Level 20.1 Anion Gap 8 Estimat Glomerular Filtration Rate 31 Imaging Last Impressions Renal Ultrasound 03/16/17 0000 Signed Impressions: Service Date/Time: Thursday, March 16, 2017 13:26 - CONCLUSION: Negative for stone, mass or obstruction. Nasim Ramsay MD FACR Head CT 03/15/17 1800 Signed Impressions: Service Date/Time: Wednesday, March 15, 2017 18:21 - CONCLUSION: 1. No acute intracranial hemorrhage. 2. 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 3. Bilateral cortical atrophy. Chadd Vásquez MD Chest X-Ray 03/15/17 1800 Signed Impressions: Service Date/Time: Wednesday, March 15, 2017 18:02 - CONCLUSION: No acute disease. Chadd Vásquez MD Physical Exam HEENT: PERRLA; normocephalic; atraumatic; no jaundice. CHEST: CTA CARDIAC: RRR ABDOMEN: Soft, mildly distended, nontender; no hepatosplenomegaly; bowel sounds are present x 4 EXTREMITIES: No clubbing, cyanosis, or edema. 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 Pt brought to ER for diarrhea, generalized weakness. Had black tarry stool in ER. On Coumadin at home for PE, was found to have severe anemia with HH of 5.1/15.3. S/P 4 units of PRBC s/p 1 unit FFP, Kcentra, and Vitamin K No further active bleeding. s/p EGD found large ulcer, esophagitis, gastritis. path benign. - Severe anemia, acute blood loss. a decline in hgb 7.3 today, no bleeding reported - Coagulopathy/Coumadin toxicity. INR of 17.1, s/p 1 unit FFP, Kcentra, and Vitamin K and this improved - Leukocytosis. improved - ELIZABETH, Creat 2.44 admission, nephrology following. - Elevated troponin with CHF, HTN, CAD, per CCM - Dementia/CVA, COPD, Hypothyroidism, DM per CCM - Hx PE, on Coumadin as outpatient. Coumadin on hold for elevated INR/GIB. 03/20/17--Patient states he is doing well. HH stable 8.8/26.9. PLAN: - Soft diet - Cont. Protonix 40mg PO BID - Notify GI of active bleeding - Monitor HH, transfuse as necessary - Patient is at high risk for bleeding, would benefit of avoiding anticoagulant , but if he must start Coumadin, we recommend low therapeutic range - Supportive care - Further recommendations to follow based on results of above Patient seen and examined by Dr Coffey and myself and this note is written on his behalf Canyd Murrieta Mar 20, 2017 12:55
--- NOTE | 2017-03-20 14:04 | HHI.NPPN ---
Subjective History of Present Illness 76 year old male admitted with GI bleeding, his Hemoglobin was 5.1 on admission , INR was 17, creatinine was 2.99. Patient's baseline renal function is not known. He suffers from dementia. His creatinine has improved to 2.06. Additional Remarks Patient is alert, not eating well, has cough. Objective Data Data Vital Signs Date Time Temp Pulse Resp B/P (MAP) Pulse Ox O2 Delivery O2 Flow Rate FiO2 03/20/17 12:04 99.3 77 20 141/68 (92) 96 03/20/17 11:42 77 03/20/17 09:43 97 Nasal Cannula 2.00 03/20/17 08:41 98.8 77 21 129/61 (83) 96 03/20/17 08:29 97 Nasal Cannula 2.00 03/20/17 08:07 82 03/20/17 04:00 76 03/20/17 02:44 98.7 82 16 130/68 92 03/20/17 00:10 96.6 83 16 117/59 91 03/20/17 00:00 75 03/19/17 23:48 97.5 86 16 137/64 93 03/19/17 22:15 Nasal Cannula 2.00 03/19/17 20:00 77 03/19/17 20:00 98.5 81 18 122/62 (82) 96 03/19/17 16:26 99.2 76 19 131/62 (85) 94 -: 03/20/17 0733 03/20/17 0733 Physical Exam General Appearance: No Acute Distress, Comfortable Eyes Eye Exam: Pupils Equal Throat Throat Exam: Oral Mucosa [place] & Moist Pulmonary Resp Exam: Breath Sounds Equal, No Distress, Rhonchi, Decreased Bases Cardiology CV Exam: Regular, Normal Sinus Rhythm Gastrointestinal/Abdomen GI Exam: Soft, Non-Tender, Bowel Sounds Present, Distended Extremeties Extremities Exam: Trace Edema Neurologic Neuro Exam: Alert, Awake, Oriented Psychiatric Psych Exam: Appropriate Responses Assessment/Plan Problem List: (1) Acute worsening of stage 3 chronic kidney disease ICD Codes: N18.3 - Chronic kidney disease, stage 3 (moderate) Plan: may have underlying stage III CKD, however baseline renal function is not known. ELIZABETH could be secondary to renal hypoperfusion due to GI bleeding, and hypotension. Renal US and UA were unremarkable. Taper off fluids. Encourage oral intake. Avoid nephrotoxic agents. Monitor urine output and renal function. Creatinine is stable at 2.0, possibly his baseline. Avoid Nephrotoxins. (2) Hypokalemia ICD Codes: E87.6 - Hypokalemia Plan: Could be due to NS infusion, and increased distal secretion of potassium. Replacement ordered. (3) Hyperosmolality and hypernatremia ICD Codes: E87.0 - Hyperosmolality and hypernatremia Plan: Could be iatrogenic. Change IVF to 1/2 NS. (4) Anemia ICD Codes: D64.9 - Anemia, unspecified Status: Acute Plan: blood loss anemia, improved. Monitor. Obtain iron studies. (5) Coagulopathy ICD Codes: D68.9 - Coagulation defect, unspecified Status: Acute Plan: improved. Due to Warfarin. (6) GI bleed ICD Codes: K92.2 - Gastrointestinal hemorrhage, unspecified Status: Acute Plan: GI following. Problem Qualifiers (1) Anemia: Qualified Codes: D62 - Acute posthemorrhagic anemia (2) GI bleed: Qualified Codes: K92.2 - Gastrointestinal hemorrhage, unspecified Sandy Bella MD Mar 20, 2017 14:04
[2017-03-20 15:42] LABS: INTERNATIONAL NORMALIZED RATIO 1.1 RATIO; PROTHROMBIN TIME - PATIENT 12.6 SEC (9.8-11.6)
[2017-03-21] VITALS (18 sets, daily range): BP systolic 107–146; BP diastolic 60–78; PULSE 57–103; RESP 16–22; TEMP 96.2–98.8; O2SAT 95–100
[2017-03-21] MEDS: CHLORHEXIDINE GLUCONATE 2 % 1 PACK (2 CLOTHS) TOP SCH (03:06)
[2017-03-21] MEDS: LEVOTHYROXINE SODIUM 25 MCG TAB PO SCH (05:49)
[2017-03-21] MEDS: PANTOPRAZOLE SOD 40 MG DELAYED RELEASE TAB PO SCH ×2 (05:49→16:00)
[2017-03-21] MEDS: INSULIN NovoLIN REGULAR SUPPLEMENTAL SCALE SQ SCH ×4 (05:51→21:00)
[2017-03-21 06:58] LABS: AUTOMATED NEUTROPHIL # 6.2 TH/MM3 (1.8-7.7); BASOPHIL % 0.4 % (0.0-2.0); EOSINOPHIL # 0.2 TH/MM3 (0-0.4); EOSINOPHIL % 2.7 % (0.0-4.0); HEMATOCRIT 23.8 % (39.0-51.0); HEMO FLAGS DIFF FINAL; LYMPH % 11.8 % (9.0-44.0); LYMPHOCYTE # 0.9 TH/MM3 (1.0-4.8); MEAN CELL VOLUME 89.5 FL (80.0-100.0); MEAN CORPUSCULAR HEMOGLOBIN 29.4 PG (27.0-34.0); MEAN CORPUSCULAR HGB CONC 32.8 % (32.0-36.0); MONO % 7.3 % (0.0-8.0); NEUT % 77.8 % (16.0-70.0); PLATELET COUNT 151 TH/MM3 (150-450); RED BLOOD COUNT 2.66 MIL/MM3 (4.50-5.90); RED CELL DISTRIBUTION WIDTH 18.7 % (11.6-17.2); WHITE BLOOD COUNT 7.9 TH/MM3 (4.0-11.0)
[2017-03-21 07:15] LABS: ANION GAP 8 MEQ/L (5-15); AST (GOT) 17 U/L (15-37); BICARBONATE 19.8 MEQ/L (21.0-32.0); BLOOD UREA NITROGEN 31 MG/DL (7-18); CHLORIDE 113 MEQ/L (98-107); GLOMERULAR FILTRATION RATE 33 ML/MIN (>89); POTASSIUM 3.7 MEQ/L (3.5-5.1); SODIUM (NA) 141 MEQ/L (136-145)
[2017-03-21 07:16] LABS: INTERNATIONAL NORMALIZED RATIO 1.1 RATIO; PROTHROMBIN TIME - PATIENT 12.5 SEC (9.8-11.6)
[2017-03-21 07:25] LABS: ALKALINE PHOSPHATASE 107 U/L (45-117); ALT (GPT) 32 U/L (12-78); FREE T4 0.93 NG/DL (0.76-1.46); TOTAL BILIRUBIN ADULT 0.5 MG/DL (0.2-1.0)
[2017-03-21] MEDS: DOCUSATE SODIUM 50 MG/SENNA 8.6 MG TAB PO SCH ×2 (09:43→21:00)
[2017-03-21] MEDS: guaiFENesin E.R. 600 MG TAB PO SCH ×2 (09:43→22:25)
[2017-03-21] MEDS: CARVEDILOL 3.125 MG TAB PO SCH ×2 (09:43→22:25)
[2017-03-21] MEDS: SODIUM CHLORIDE 0.9% FLUSH 10 ML FLUSH SCH ×2 (09:43→22:26)
--- NOTE | 2017-03-21 09:47 | HHI.PR ---
Subjective Remarks Much more awake and alert slowly improving according to son Discussed with patient and RN and son Has had diet and is tolerating it well Needs physical therapy and occupational therapy Hopefully home in the next 24-48 hours will probably need home health versus SNF PT and OT to eval and treat A.m. labs May need home health care 03-21 WILL TRANSFUSE PATIENT DW RN AND PT AND SON AM LABS INCREASE ACTIVITY Objective Vitals Vital Signs Date Time Temp Pulse Resp B/P (MAP) Pulse Ox O2 Delivery O2 Flow Rate FiO2 03/21/17 08:54 98.8 89 20 143/69 (93) 97 03/21/17 06:45 98.2 67 18 137/74 (95) 96 03/21/17 04:00 75 03/21/17 02:55 95 Venturi Mask 3.00 31 03/21/17 00:00 74 03/21/17 00:00 98.7 74 20 121/74 (90) 97 03/20/17 21:18 98.4 76 18 126/70 (88) 97 03/20/17 20:00 79 03/20/17 16:53 98.2 93 21 127/75 (92) 95 03/20/17 16:06 78 03/20/17 12:04 99.3 77 20 141/68 (92) 96 03/20/17 11:42 77 03/20/17 09:43 97 Nasal Cannula 2.00 I/O 03/20/17 03/20/17 03/20/17 03/21/17 03/21/17 03/21/17 07:00 15:00 23:00 07:00 15:00 23:00 Intake Total 254 ml 480 ml 660 ml 120 ml Output Total 150 ml 150 ml 100 ml Balance 104 ml 330 ml 560 ml 120 ml Intake Oral 480 ml 240 ml 120 ml IV Total 420 ml Packed Cells 250 ml Blood Product IV Normal Saline Flush 4 ml Output Urine Total 150 ml 150 ml 100 ml # Voids 1 2 2 # Bowel Movements 2 2 1 2 Result Diagram: 03/21/17 0634 03/21/17 0634 Other Results Laboratory Tests Test 03/19/17 07:43 03/20/17 07:33 03/20/17 14:15 03/21/17 06:34 White Blood Count 6.9 TH/MM3 8.4 TH/MM3 7.9 TH/MM3 Red Blood Count 2.49 MIL/MM3 2.92 MIL/MM3 2.66 MIL/MM3 Hemoglobin 7.3 GM/DL 8.8 GM/DL 7.8 GM/DL Hematocrit 22.6 % 26.9 % 23.8 % Mean Corpuscular Volume 90.6 FL 92.3 FL 89.5 FL Mean Corpuscular Hemoglobin 29.5 PG 30.1 PG 29.4 PG Mean Corpuscular Hemoglobin Concent 32.6 % 32.6 % 32.8 % Red Cell Distribution Width 20.1 % 19.4 % 18.7 % Platelet Count 135 TH/MM3 144 TH/MM3 151 TH/MM3 Mean Platelet Volume 7.7 FL 8.2 FL 7.6 FL Neutrophils (%) (Auto) 81.3 % 78.2 % 77.8 % Lymphocytes (%) (Auto) 10.4 % 10.5 % 11.8 % Monocytes (%) (Auto) 7.0 % 8.5 % 7.3 % Eosinophils (%) (Auto) 1.0 % 2.0 % 2.7 % Basophils (%) (Auto) 0.3 % 0.8 % 0.4 % Neutrophils # (Auto) 5.6 TH/MM3 6.6 TH/MM3 6.2 TH/MM3 Lymphocytes # (Auto) 0.7 TH/MM3 0.9 TH/MM3 0.9 TH/MM3 Monocytes # (Auto) 0.5 TH/MM3 0.7 TH/MM3 0.6 TH/MM3 Eosinophils # (Auto) 0.1 TH/MM3 0.2 TH/MM3 0.2 TH/MM3 Basophils # (Auto) 0.0 TH/MM3 0.1 TH/MM3 0.0 TH/MM3 CBC Comment DIFF FINAL DIFF FINAL DIFF FINAL Differential Comment Blood Urea Nitrogen 36 MG/DL 30 MG/DL 31 MG/DL Creatinine 2.01 MG/DL 2.08 MG/DL 1.99 MG/DL Random Glucose 119 MG/DL 130 MG/DL 123 MG/DL Calcium Level 7.5 MG/DL 7.6 MG/DL 7.7 MG/DL Sodium Level 145 MEQ/L 142 MEQ/L 141 MEQ/L Potassium Level 4.0 MEQ/L 3.6 MEQ/L 3.7 MEQ/L Chloride Level 117 MEQ/L 114 MEQ/L 113 MEQ/L Carbon Dioxide Level 20.6 MEQ/L 20.1 MEQ/L 19.8 MEQ/L Anion Gap 7 MEQ/L 8 MEQ/L 8 MEQ/L Estimat Glomerular Filtration Rate 32 ML/MIN 31 ML/MIN 33 ML/MIN Iron Level 14 MCG/DL Total Iron Binding Capacity 220 MCG/DL Percent Iron Saturation 6.4 % Prothrombin Time 12.6 SEC 12.5 SEC Prothromb Time International Ratio 1.1 RATIO 1.1 RATIO Total Protein 5.0 GM/DL Albumin 2.0 GM/DL Phosphorus Level 3.0 MG/DL Magnesium Level 2.0 MG/DL Alkaline Phosphatase 107 U/L Aspartate Amino Transf (AST/SGOT) 17 U/L Alanine Aminotransferase (ALT/SGPT) 32 U/L Total Bilirubin 0.5 MG/DL Free Thyroxine 0.93 NG/DL Thyroid Stimulating Hormone 3rd Gen 4.210 uIU/ML Imaging Last Impressions Renal Ultrasound 03/16/17 0000 Signed Impressions: Service Date/Time: Thursday, March 16, 2017 13:26 - CONCLUSION: Negative for stone, mass or obstruction. Nasim Ramsay MD FACR Head CT 03/15/17 1800 Signed Impressions: Service Date/Time: Wednesday, March 15, 2017 18:21 - CONCLUSION: 1. No acute intracranial hemorrhage. 2. 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 3. Bilateral cortical atrophy. Chadd Vásquez MD Chest X-Ray 03/15/17 1800 Signed Impressions: Service Date/Time: Wednesday, March 15, 2017 18:02 - CONCLUSION: No acute disease. Chadd Vásquez MD Objective Remarks GENERAL: Awake alert and talkative and cooperative tolerating a diet at this time SKIN: Warm and dry. HEAD: Atraumatic. Normocephalic. EYES: Pupils equal and round. No scleral icterus. No injection or drainage. Extraocular muscles grossly intact ENT: No nasal bleeding or discharge. Mucous membranes pink and moist. Tongue is midline NECK: Trachea midline. No JVD. Neck is supple CARDIOVASCULAR: Regular rate and rhythm. S1-S2 no S3 or S4 no heave or thrill or rub or gallop RESPIRATORY: No accessory muscle use. Clear to auscultation. Breath sounds equal bilaterally. GASTROINTESTINAL: Abdomen soft, non-tender, nondistended. Hepatic and splenic margins not palpable. MUSCULOSKELETAL: Extremities without clubbing, cyanosis, or edema. No obvious deformities. NEUROLOGICAL: Awake and alert. No obvious cranial nerve deficits. Motor grossly within normal limits. 4 out of 5 muscle strength in the arms and legs. Normal speech. PSYCHIATRIC: Appropriate mood and affect; insight and judgment normal. Medications and IVs Current Medications Sodium Chloride 250 ml @ 15 mls/hr ONCE ONCE IV ; Start 03/15/17 at 19:00; Stop 03/16/17 at 11:39; Status DC Phytonadione (Vitamin K Inj) 10 mg ONCE ONCE SQ Last administered on 19:09; Start 03/15/17 at 19:00; Stop 03/15/17 at 19:01; Status DC Sodium Chloride 500 ml @ 500 mls/hr BOLUS ONCE IV Last administered on 19:09; Start 03/15/17 at 19:00; Stop 03/15/17 at 19:59; Status DC Prothrombin Complex Concent (Human) 3704 units/Syringe / Bag 0 ml @ 500 mls/hr ONCE ONCE IV Last administered on 03/15/17 20:35; Start 03/15/17 at 20:30; Stop 03/15/17 at 20:31; Status DC Sodium Chloride 250 ml @ 15 mls/hr ONCE ONCE IV ; Start 03/15/17 at 19:45; Stop 03/16/17 at 12:24; Status DC Sodium Chloride 1,000 ml @ 84 mls/hr [id number] IV Last administered on 03/18/17 06:35; Start 03/15/17 at 23:24; Stop 03/18/17 at 17:12; Status DC Sodium Chloride (NS Flush) 2 ml UNSCH PRN .XX FLUSH AFTER USING IV ACCESS; Start 03/15/17 at 23:30 Sodium Chloride (NS Flush) 2 ml BID .XX Last administered on 03/19/17 09:54; Start 03/16/17 at 09:00 Acetaminophen (Tylenol) 650 mg Q6H PRN PO PAIN 1-10 AND/OR FEVER >101F; Start 03/15/17 at 23:30 Morphine Sulfate (Morphine Inj) 2 mg Q2H PRN IV PAIN SCALE 6 TO 10; Start 03/15 at 23:30 Pantoprazole Sodium (Protonix Inj) 40 mg Q12H IV Last administered on 01:16; Start 03/15/17 at 23:30; Stop 03/16/17 at 10:37; Status DC Ondansetron HCl (Zofran Inj) 4 mg Q6H PRN IV NAUSEA OR VOMITING Last administered on 03/17/17 21:16; Start 03/15/17 at 23:30 Zolpidem Tartrate (Ambien) 5 mg HS PRN PO INSOMNIA; Start 03/15/17 at 23:30 Albuterol/ Ipratropium (Duoneb Neb) 1 ampule Q2HR NEB PRN INH WHEEZING; Start 03/15/17 at 23:30; Stop 03/16/17 at 10:59; Status DC Miscellaneous Information 1 Q361D XX ; Start 03/15/17 at 23:30 Chlorhexidine Gluconate (Chlorhexidine 2% Cloth) Taper DAILY@04 TOP Last administered on 03/18/17 03:20; Start 03/16/17 at 04:00; Stop 03/12/18 at 03:59 Chlorhexidine Gluconate (Chlorhexidine 2% Cloth) 3 pack UNSCH PRN TOP HYGIENIC CARE; Start 03/15/17 at 23:30 Senna/Docusate Sodium (Andria-Colace) 1 tab BID PO Last administered on 03/19/17 09:51; Start 03/16/17 at 09:00 Magnesium Hydroxide (Milk Of Magnesia Liq) 30 ml Q12H PRN PO MILD - MODERATE CONSTIPATION; Start 03/15/17 at 23:30 Sennosides (Senokot) 17.2 mg Q12H PRN PO MODERATE - SEVERE CONSTIPATION; Start 03/15/17 at 23:30 Bisacodyl (Dulcolax Supp) 10 mg DAILY PRN RECTAL SEVERE CONSITIPATION; Start at 23:30 Lactulose (Lactulose Liq) 30 ml DAILY PRN PO SEVERE CONSITIPATION; Start at 23:30 Levothyroxine Sodium (Synthroid) 25 mcg DAILY@0600 PO Last administered on 05:49; Start 03/16/17 at 06:00 Pantoprazole Sodium 80 mg/ Sodium Chloride 35 ml @ 420 mls/hr Q5M ONCE IV Last administered on 03/16/17 13:17; Start 03/16/17 at 14:00; Stop 03/16/17 at 14:04; Status DC Pantoprazole Sodium 80 mg/ Sodium Chloride 100 ml @ 10 mls/hr Q10H IV Last administered on 03/19/17 20:47; Start 03/16/17 at 13:00; Stop 03/19/17 at 21:32; Status DC Albuterol/ Ipratropium (Duoneb Neb) 1 ampule Q6HR NEB NEB Last administered on 03/20/17 08:29; Start 03/16/17 at 16:00; Stop 03/20/17 at 15:59; Status DC Albuterol Sulfate (Albuterol Neb) 2.5 mg Q2HR NEB PRN NEB DYSPNEA Last administered on 03/21/17 00:39; Start 03/16/17 at 11:00 Dextrose (D50w (Vial) Inj) 50 ml UNSCH PRN IV HYPOGLYCEMIA-SEE COMMENTS; Start 03/16/17 at 11:00 Glucagon (Glucagon Inj) 1 mg UNSCH PRN OTHER HYPOGLYCEMIA-SEE COMMENTS; Start 03/16/17 at 11:00 Insulin Human Regular (NovoLIN R SUPPLEMENTAL SCALE) 1 ACHS SLIDING SCALE SQ Last administered on 03/20/17 20:41; Start 03/16/17 at 11:00 Propofol (Diprivan 200 Mg/20 ml Inj) 100 mg STK-MED ONCE IV ; Start 03/17/17 at 14:10; Stop 03/17/17 at 14:11; Status DC Miscellaneous Information ALL NURSING DEPARTME... UNSCH PRN .XX SEE LABEL COMMENTS; Start 03/17/17 at 12:36; Stop 03/18/17 at 12:35; Status DC Ketamine HCl (Ketalar Inj) 10 mg STK-MED ONCE IV ; Start 03/17/17 at 12:00; Stop 03/18/17 at 08:18; Status DC Potassium Bicarb/ Potassium Chloride (K-Lyte Cl Eff) 50 meq ONCE ONCE PO Last administered on 03/18/17 12:05; Start 03/18/17 at 10:45; Stop 03/18/17 at 10: 46; Status DC Carvedilol (Coreg) 3.125 mg Q12HR PO Last administered on 03/20/17 20:31; Start 03/18/17 at 21:00 Sodium Chloride 1,000 ml @ 60 mls/hr [id number] IV Last administered on 03/20/17 22:34; Start 03/18/17 at 17:15 Potassium Chloride (KCl) 40 meq ONCE ONCE PO Last administered on 03/18/17 21: 24; Start 03/18/17 at 17:30; Stop 03/18/17 at 17:31; Status DC Sodium Chloride 250 ml @ 15 mls/hr ONCE ONCE IV ; Start 03/19/17 at 14:45; Stop 03/20/17 at 07:24; Status DC Pantoprazole Sodium (Protonix) 40 mg BIDAC PO Last administered on 03/21/17 05: 49; Start 03/20/17 at 07:00 Guaifenesin (Mucinex Er) 600 mg BID PO Last administered on 03/20/17 20:32; Start 03/20/17 at 09:00 Albuterol/ Ipratropium (Duoneb Neb) 1 ampule Q4HR NEB NEB ; Start 03/21/17 at 12 :00; Status UNV Albuterol/ Ipratropium (Duoneb Neb) 1 ampule Q2HR NEB PRN NEB SHORTNESS OF BREATH; Start 03/21/17 at 09:30; Status UNV Urinary Catheter: No Vascular Central Line Catheter: No A/P Problem List: (1) Acute worsening of stage 3 chronic kidney disease ICD Code: N18.3 - Chronic kidney disease, stage 3 (moderate) (2) CAD (coronary artery disease) ICD Code: I25.10 - Atherosclerotic heart disease of [place] coronary artery without angina pectoris (3) NSTEMI (non-ST elevated myocardial infarction) ICD Code: I21.4 - Non-ST elevation (NSTEMI) myocardial infarction Status: Acute (4) Anemia ICD Code: D64.9 - Anemia, unspecified Status: Acute Assessment and Plan Dementia disorder NOS Left basal ganglia CVA Depression NOS - Holding mirtazapine 15 mg at night. - Holding sertraline 75 mg by mouth daily - Holding hydroxyazine 25 mg as needed Chronic systolic heart failure ejection fraction 35% Hypertension History of CABG Elevated troponin currently 4.1 likely type II non-STEMI secondary to demand ischemia Atrial fibrillation? - Likely demand ischemia from low blood volume. - Echocardiogram 8/30 revealed EF 35-40%. Moderate MR/TR. Trace AR. Mild NE. - Cardiology following patient. No acute interventions at this time. - Holding furosemide 40 mg daily and potassium chloride 20 mEq daily - Restarted carvedilol 3.125 mg PO daily by cardiology. - Holding lisinopril 2.5 mill grams daily light of GI bleed/acute kidney injury. - EKG ordered. Appears regular on telemetry. History COPD - Nasal cannula to maintain saturations greater than equal to 92% - Incentive spirometry while awake - On albuterol/ipratropium aerosols every 12 hours and nursing along with albuterol inhaler when necessary Gastroesophageal reflux disease - Currently on pantoprazole drip at 8 mg an hour. - EGD done 03/17 showing large ulcer at the Esopho-gastric anastomosis. Biopsy pending. Hypothyroidism Diabetes mellitus - Continue levothyroxine 50 mcg by mouth daily. TSH WNL. - Sliding-scale insulin to maintain euglycemia/low regimen of Novolin R with Accu-Cheks every 6 hours Acute kidney injury suspect secondary to ATN due to severe anemia - Unknown baseline creatinine. - Avoid nephrotoxic drugs. - Renal ultrasound revealed no hydronephrosis. - Urine electrolytes/eosinophils negative - Monitor urine output - Accurate I's and O's - Nephrology consulted and has seen patient, recommendations to wean off fluids, monitor intake and output with possible underlying CKD III. Acute blood loss anemia Leukocytosis Supratherapeutic INR secondary to warfarin History of pulmonary embolism - Received K Centra 3702 milligrams in ED 1. 10 mg of vitamin K. 1 FFP. Last INR 1.2. - Status post 3 units PRBCs. Repeat hemoglobin 7.2. Repeat CBC in am. Follow. - Serial hemoglobins - Holding warfarin, Spoke with GI, patient at risk for bleeding, another unit of PRBC ordered. Will follow. - Previously on iron sulfate 325 mg by mouth daily. Hypokalemia, status post replacement. K 4.0 today. GI prophylaxis: Pantoprazole drip. Appreciate GI recommendations. DVT prophylaxis: SCD/pharmacological prophylaxis contraindicated with active bleeding AM LABS, FOLLOW CBC, CMP AND MAG AND PHOS PT AND OT TO EVAL AND TREAT DW RN AND PT AND SON WILL TRANSFUSE 2 UNITS PRBC Problem Qualifiers (1) Anemia: Qualified Codes: D62 - Acute posthemorrhagic anemia Nasim Padron DO Mar 21, 2017 09:47
[2017-03-21] MEDS ORDERED: ACETAMINOPHEN 325 MG TAB PO PRN (10:00)
[2017-03-21] MEDS ORDERED: diphenhydrAMINE HCL 25 MG CAP PO PRN (10:00)
[2017-03-21] MEDS ORDERED: RESP: ALBUTEROL 2.5 MG/IPRATROPIUM 0.5 MG NEB (PRN) NEB (10:00)
[2017-03-21] MEDS ORDERED: SODIUM CHLOR 0.9% 250 ML INJ 250 ML IV ONE (10:00)
[2017-03-21] MEDS ORDERED: POTASSIUM CHLORIDE 10 MEQ CONTROLLED RELEASE TAB PO ONE (10:30)
[2017-03-21] MEDS ORDERED: FUROSEMIDE 20 MG/2 ML VIAL IV ONE ×2 (10:30→19:45)
[2017-03-21 11:19] LABS: HEMOGLOBIN A1a 1.3 %; HEMOGLOBIN A1b 0.8 %; HEMOGLOBIN Ao 84.7 %; HEMOGLOBIN F 1.2 %; HEMOGLOBIN LA1C 2.2 %; HEMOGLOBIN P3 5.4 %
--- NOTE | 2017-03-21 11:36 | HHI.NPPN ---
Subjective History of Present Illness 76 year old male admitted with GI bleeding, his Hemoglobin was 5.1 on admission , INR was 17, creatinine was 2.99. Patient's baseline renal function is not known. He suffers from dementia. His creatinine has improved to 2.06. Interval History Lethargic, son is at the bedside, I discussed with him. Review of Systems General Constitutional: Fatigue Objective Data Data 03/21/17 03/22/17 19:00 07:00 Intake Total 1080 ml Balance 1080 ml IV Total 1080 ml Vital Signs Date Time Temp Pulse Resp B/P (MAP) Pulse Ox O2 Delivery O2 Flow Rate FiO2 03/21/17 08:54 98.8 89 20 143/69 (93) 97 03/21/17 08:00 103 03/21/17 06:45 98.2 67 18 137/74 (95) 96 03/21/17 04:00 75 03/21/17 02:55 95 Venturi Mask 3.00 31 03/21/17 00:00 74 03/21/17 00:00 98.7 74 20 121/74 (90) 97 03/20/17 21:18 98.4 76 18 126/70 (88) 97 03/20/17 20:00 79 03/20/17 16:53 98.2 93 21 127/75 (92) 95 03/20/17 16:06 78 03/20/17 12:04 99.3 77 20 141/68 (92) 96 03/20/17 11:42 77 -: 03/21/17 0634 03/21/17 0634 Physical Exam General Appearance: No Acute Distress, Comfortable Eyes Eye Exam: Pupils Equal Throat Throat Exam: Oral Mucosa [place] & Moist Pulmonary Resp Exam: Clear Bilaterally, Breath Sounds Equal, No Distress, Decreased Bases Cardiology CV Exam: Regular, Normal Sinus Rhythm Gastrointestinal/Abdomen GI Exam: Soft, Non-Tender, Bowel Sounds Present, Distended Extremeties Extremities Exam: Trace Edema Neurologic Neuro Exam: Alert, Awake, Oriented Psychiatric Psych Exam: Appropriate Responses Assessment/Plan Problem List: (1) Acute worsening of stage 3 chronic kidney disease ICD Codes: N18.3 - Chronic kidney disease, stage 3 (moderate) Plan: may have underlying stage III CKD, however baseline renal function is not known. ELIZABETH could be secondary to renal hypoperfusion due to GI bleeding, and hypotension. Renal US and UA were unremarkable. Taper off fluids. Encourage oral intake. Avoid nephrotoxic agents. Monitor urine output and renal function. (2) Hypokalemia ICD Codes: E87.6 - Hypokalemia Plan: Could be due to NS infusion, and increased distal secretion of potassium. Improved, replace as needed. (3) Hyperosmolality and hypernatremia ICD Codes: E87.0 - Hyperosmolality and hypernatremia Plan: Improved. (4) Anemia ICD Codes: D64.9 - Anemia, unspecified Status: Acute Plan: blood loss anemia, improved. Monitor. Obtain iron studies. (5) Coagulopathy ICD Codes: D68.9 - Coagulation defect, unspecified Status: Acute Plan: improved. Due to Warfarin. (6) GI bleed ICD Codes: K92.2 - Gastrointestinal hemorrhage, unspecified Status: Acute Plan: GI following. Problem Qualifiers (1) Anemia: Qualified Codes: D62 - Acute posthemorrhagic anemia (2) GI bleed: Qualified Codes: K92.2 - Gastrointestinal hemorrhage, unspecified Sagar Mayfield MD Mar 21, 2017 11:36
--- NOTE | 2017-03-21 11:49 | HHI.GIFU ---
Subjective Remarks Lying in bed. No complaints today. Denies abdominal pain, N/V. Objective Vitals I&O Vital Signs Date Time Temp Pulse Resp B/P (MAP) Pulse Ox O2 Delivery O2 Flow Rate FiO2 03/21/17 08:54 98.8 89 20 143/69 (93) 97 03/21/17 08:00 103 03/21/17 06:45 98.2 67 18 137/74 (95) 96 03/21/17 04:00 75 03/21/17 02:55 95 Venturi Mask 3.00 31 03/21/17 00:00 74 03/21/17 00:00 98.7 74 20 121/74 (90) 97 03/20/17 21:18 98.4 76 18 126/70 (88) 97 03/20/17 20:00 79 03/20/17 16:53 98.2 93 21 127/75 (92) 95 03/20/17 16:06 78 03/20/17 12:04 99.3 77 20 141/68 (92) 96 03/20/17 11:42 77 I/O 03/20/17 03/20/17 03/20/17 03/21/17 03/21/17 03/21/17 07:00 15:00 23:00 07:00 15:00 23:00 Intake Total 254 ml 480 ml 660 ml 120 ml 1080 ml Output Total 150 ml 150 ml 100 ml Balance 104 ml 330 ml 560 ml 120 ml 1080 ml Intake Oral 480 ml 240 ml 120 ml IV Total 420 ml 1080 ml Packed Cells 250 ml Blood Product IV Normal Saline Flush 4 ml Output Urine Total 150 ml 150 ml 100 ml # Voids 1 2 2 # Bowel Movements 2 2 1 2 Laboratory Laboratory Tests Test 03/20/17 14:15 03/21/17 06:34 Prothrombin Time 12.6 12.5 Prothromb Time International Ratio 1.1 1.1 White Blood Count 7.9 Red Blood Count 2.66 Hemoglobin 7.8 Hematocrit 23.8 Mean Corpuscular Volume 89.5 Mean Corpuscular Hemoglobin 29.4 Mean Corpuscular Hemoglobin Concent 32.8 Red Cell Distribution Width 18.7 Platelet Count 151 Mean Platelet Volume 7.6 Neutrophils (%) (Auto) 77.8 Lymphocytes (%) (Auto) 11.8 Monocytes (%) (Auto) 7.3 Eosinophils (%) (Auto) 2.7 Basophils (%) (Auto) 0.4 Neutrophils # (Auto) 6.2 Lymphocytes # (Auto) 0.9 Monocytes # (Auto) 0.6 Eosinophils # (Auto) 0.2 Basophils # (Auto) 0.0 CBC Comment DIFF FINAL Differential Comment Blood Urea Nitrogen 31 Creatinine 1.99 Random Glucose 123 Total Protein 5.0 Albumin 2.0 Calcium Level 7.7 Phosphorus Level 3.0 Magnesium Level 2.0 Alkaline Phosphatase 107 Aspartate Amino Transf (AST/SGOT) 17 Alanine Aminotransferase (ALT/SGPT) 32 Total Bilirubin 0.5 Sodium Level 141 Potassium Level 3.7 Chloride Level 113 Carbon Dioxide Level 19.8 Anion Gap 8 Estimat Glomerular Filtration Rate 33 Hemoglobin A1c 5.2 Free Thyroxine 0.93 Thyroid Stimulating Hormone 3rd Gen 4.210 Imaging Last Impressions Renal Ultrasound 03/16/17 0000 Signed Impressions: Service Date/Time: Thursday, March 16, 2017 13:26 - CONCLUSION: Negative for stone, mass or obstruction. Nasim Ramsay MD FACR Head CT 03/15/17 1800 Signed Impressions: Service Date/Time: Wednesday, March 15, 2017 18:21 - CONCLUSION: 1. No acute intracranial hemorrhage. 2. 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 3. Bilateral cortical atrophy. Chadd Vásquez MD Chest X-Ray 03/15/17 1800 Signed Impressions: Service Date/Time: Wednesday, March 15, 2017 18:02 - CONCLUSION: No acute disease. Chadd Vásquez MD Physical Exam HEENT: Normocephalic; atraumatic; no jaundice. CHEST: CTA CARDIAC: RRR ABDOMEN: Soft, nondistended, nontender; no hepatosplenomegaly; bowel sounds are present x 4 EXTREMITIES: No clubbing, cyanosis, or edema. 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 [employer] HELPER: Alert and oriented Assessment and Plan Plan ASSESSMENT: - GIB, Melena. Pt brought to ER for diarrhea, generalized weakness. Had black tarry stool in ER. On Coumadin at home for PE, was found to have severe anemia with HH of 5.1/15.3. S/P 4 units of PRBC s/p 1 unit FFP, Kcentra, and Vitamin K No further active bleeding. s/p EGD found large ulcer, esophagitis, gastritis. path benign. - Severe anemia, acute blood loss. a decline in hgb 7.3 today, no bleeding reported - Coagulopathy/Coumadin toxicity. INR of 17.1, s/p 1 unit FFP, Kcentra, and Vitamin K and this improved - Leukocytosis. improved - ELIZABETH, Creat 2.44 admission, nephrology following. - Elevated troponin with CHF, HTN, CAD, per [facility] - Dementia/CVA, COPD, Hypothyroidism, DM per [facility] - Hx PE, on Coumadin as outpatient. Coumadin on hold for elevated INR/GIB. 03/20/17--Patient states he is doing well. HH stable 8.8/26.9. 03/21/17--HH decreased, 7.8/23.8. PRBC ordered. Warfarin on hold. No active bleeding noted. PLAN: - PRBC ordered for decreased HH - Warfarin on hold - Notify GI of active bleeding - Monitor HH, transfuse as necessary - Soft diet - Cont. Protonix 40mg PO BID - Supportive care - Further recommendations to follow based on results of above Patient seen and examined by Dr Coffey and myself and this note is written on his behalf Candy Murrieta Mar 21, 2017 11:49
[2017-03-21] MEDS: IRON SUCROSE INJ 100 MG in SODIUM CHLORIDE 0.9% INJ 100 ML IV SCH (13:37)
[2017-03-21] MEDS: RESP: ALBUTEROL 2.5 MG/IPRATROPIUM 0.5 MG NEB (SCH) NEB ×2 (16:00→20:48)
[2017-03-22] VITALS (9 sets, daily range): BP systolic 122–140; BP diastolic 62–79; PULSE 72–85; RESP 17–22; TEMP 96.2–99.3; O2SAT 95–99
[2017-03-22] MEDS: RESP: ALBUTEROL 2.5 MG/IPRATROPIUM 0.5 MG NEB (SCH) NEB ×7 (04:00→23:51)
[2017-03-22] MEDS: CHLORHEXIDINE GLUCONATE 2 % 1 PACK (2 CLOTHS) TOP SCH (04:00)
[2017-03-22] MEDS: PANTOPRAZOLE SOD 40 MG DELAYED RELEASE TAB PO SCH ×2 (06:14→16:49)
[2017-03-22] MEDS: LEVOTHYROXINE SODIUM 25 MCG TAB PO SCH (06:14)
[2017-03-22] MEDS: INSULIN NovoLIN REGULAR SUPPLEMENTAL SCALE SQ SCH ×4 (06:17→22:33)
[2017-03-22 08:03] LABS: AUTOMATED NEUTROPHIL # 7.1 TH/MM3 (1.8-7.7); BASOPHIL % 0.2 % (0.0-2.0); EOSINOPHIL # 0.2 TH/MM3 (0-0.4); EOSINOPHIL % 2.2 % (0.0-4.0); HEMATOCRIT 31.1 % (39.0-51.0); HEMO FLAGS DIFF FINAL; LYMPH % 9.2 % (9.0-44.0); LYMPHOCYTE # 0.8 TH/MM3 (1.0-4.8); MEAN CELL VOLUME 88.8 FL (80.0-100.0); MEAN CORPUSCULAR HEMOGLOBIN 29.6 PG (27.0-34.0); MEAN CORPUSCULAR HGB CONC 33.3 % (32.0-36.0); MONO % 8.1 % (0.0-8.0); NEUT % 80.3 % (16.0-70.0); PLATELET COUNT 156 TH/MM3 (150-450); RED CELL DISTRIBUTION WIDTH 17.6 % (11.6-17.2); WHITE BLOOD COUNT 8.8 TH/MM3 (4.0-11.0)
[2017-03-22 08:21] LABS: ANION GAP 8 MEQ/L (5-15); AST (GOT) 16 U/L (15-37); BICARBONATE 22.4 MEQ/L (21.0-32.0); BLOOD UREA NITROGEN 31 MG/DL (7-18); CHLORIDE 111 MEQ/L (98-107); GLOMERULAR FILTRATION RATE 32 ML/MIN (>89); POTASSIUM 3.3 MEQ/L (3.5-5.1); SODIUM (NA) 141 MEQ/L (136-145)
[2017-03-22 08:22] LABS: ALT (GPT) 29 U/L (12-78)
[2017-03-22 08:25] LABS: ALKALINE PHOSPHATASE 133 U/L (45-117)
--- NOTE | 2017-03-22 09:38 | HHI.NPPN ---
Subjective History of Present Illness 76 year old male admitted with GI bleeding, his Hemoglobin was 5.1 on admission , INR was 17, creatinine was 2.99. Patient's baseline renal function is not known. He suffers from dementia. His creatinine has improved to 2.06. Interval History he is doing well, no new complaints. Son is at the bedside. Review of Systems General Constitutional: Fatigue Objective Data Data Vital Signs Date Time Temp Pulse Resp B/P (MAP) Pulse Ox O2 Delivery O2 Flow Rate FiO2 03/22/17 04:00 96.2 81 17 122/64 (83) 96 03/22/17 02:15 97.8 82 22 139/79 98 03/21/17 23:30 97.0 63 22 146/78 96 03/21/17 23:12 97.9 78 20 141/70 96 03/21/17 22:52 80 03/21/17 20:49 95 Nasal Cannula 3.00 03/21/17 20:00 98.3 78 17 122/66 (84) 99 03/21/17 19:00 98.0 72 16 122/69 100 03/21/17 17:30 97.0 72 16 141/73 100 03/21/17 16:23 96.3 58 20 114/60 (78) 100 03/21/17 16:00 71 03/21/17 15:48 96.3 70 18 107/70 100 03/21/17 15:33 96.2 57 18 114/60 100 03/21/17 15:33 96.2 57 16 114/60 (78) 100 03/21/17 12:13 96.9 77 21 134/69 (90) 96 03/21/17 11:59 3.00 -: 03/22/17 0703 03/22/17 0703 Physical Exam General Appearance: No Acute Distress, Comfortable Eyes Eye Exam: Pupils Equal Throat Throat Exam: Oral Mucosa [place] & Moist Pulmonary Resp Exam: Clear Bilaterally, Breath Sounds Equal, No Distress, Decreased Bases Cardiology CV Exam: Regular, Normal Sinus Rhythm Gastrointestinal/Abdomen GI Exam: Soft, Non-Tender, Bowel Sounds Present, Distended Extremeties Extremities Exam: Trace Edema Neurologic Neuro Exam: Alert, Awake, Oriented Psychiatric Psych Exam: Appropriate Responses Assessment/Plan Problem List: (1) Acute worsening of stage 3 chronic kidney disease ICD Codes: N18.3 - Chronic kidney disease, stage 3 (moderate) Plan: may have underlying stage III CKD, however baseline renal function is not known. Creatinine around 2 for several days, it appears that this is his baseline. IVF stopped. Remove [place], increase activity. Encourage oral intake. Avoid nephrotoxic agents. Monitor urine output and renal function. (2) Hypokalemia ICD Codes: E87.6 - Hypokalemia Plan: Replacement ordered. (3) Hyperosmolality and hypernatremia ICD Codes: E87.0 - Hyperosmolality and hypernatremia Plan: Improved. (4) Anemia ICD Codes: D64.9 - Anemia, unspecified Status: Acute Plan: blood loss anemia, improved. Monitor. Obtain iron studies. (5) Coagulopathy ICD Codes: D68.9 - Coagulation defect, unspecified Status: Acute Plan: improved. Due to Warfarin. (6) GI bleed ICD Codes: K92.2 - Gastrointestinal hemorrhage, unspecified Status: Acute Plan: GI following. Problem Qualifiers (1) Anemia: Qualified Codes: D62 - Acute posthemorrhagic anemia (2) GI bleed: Qualified Codes: K92.2 - Gastrointestinal hemorrhage, unspecified Sagar Mayfield MD Mar 22, 2017 09:38
--- NOTE | 2017-03-22 09:38 | HHI.PR ---
Subjective Remarks Much more awake and alert slowly improving according to son Discussed with patient and RN and son Has had diet and is tolerating it well Needs physical therapy and occupational therapy Hopefully home in the next 24-48 hours will probably need home health versus SNF PT and OT to eval and treat A.m. labs May need home health care 9-4 WILL TRANSFUSE PATIENT DW RN AND PT AND SON AM LABS INCREASE ACTIVITY 9-5 HAD TRANSFUSIONS YESTERDAY HGB AT 10 NOW DW RN AND PT AND FAMILY LIVES IN [place], MAY NEED REHAB SNF WANTS [facility] ST[facility] VERY WEAK REPLACE HYPOKALEMIA AM LABS Objective Vitals Vital Signs Date Time Temp Pulse Resp B/P (MAP) Pulse Ox O2 Delivery O2 Flow Rate FiO2 03/22/17 04:00 96.2 81 17 122/64 (83) 96 03/22/17 02:15 97.8 82 22 139/79 98 03/21/17 23:30 97.0 63 22 146/78 96 03/21/17 23:12 97.9 78 20 141/70 96 03/21/17 22:52 80 03/21/17 20:49 95 Nasal Cannula 3.00 03/21/17 20:00 98.3 78 17 122/66 (84) 99 03/21/17 19:00 98.0 72 16 122/69 100 03/21/17 17:30 97.0 72 16 141/73 100 03/21/17 16:23 96.3 58 20 114/60 (78) 100 03/21/17 16:00 71 03/21/17 15:48 96.3 70 18 107/70 100 03/21/17 15:33 96.2 57 18 114/60 100 03/21/17 15:33 96.2 57 16 114/60 (78) 100 03/21/17 12:13 96.9 77 21 134/69 (90) 96 03/21/17 11:59 3.00 I/O 03/21/17 03/21/17 03/21/17 03/22/17 03/22/17 03/22/17 07:00 15:00 23:00 07:00 15:00 23:00 Intake Total 120 ml 2680 ml 600 ml 270 ml Output Total 800 ml 3550 ml Balance 120 ml 2680 ml -200 ml -3280 ml Intake Oral 120 ml IV Total 2680 ml Packed Cells 250 ml 250 ml Blood Product IV Normal Saline Flush 350 ml 20 ml Output Urine Total 800 ml 3550 ml # Voids 2 1 # Bowel Movements 2 1 Result Diagram: 03/22/17 0703 03/22/17 0703 Other Results Laboratory Tests Test 03/20/17 07:33 03/20/17 14:15 03/21/17 06:34 03/22/17 07:03 White Blood Count 8.4 TH/MM3 7.9 TH/MM3 8.8 TH/MM3 Red Blood Count 2.92 MIL/MM3 2.66 MIL/MM3 3.50 MIL/MM3 Hemoglobin 8.8 GM/DL 7.8 GM/DL 10.3 GM/DL Hematocrit 26.9 % 23.8 % 31.1 % Mean Corpuscular Volume 92.3 FL 89.5 FL 88.8 FL Mean Corpuscular Hemoglobin 30.1 PG 29.4 PG 29.6 PG Mean Corpuscular Hemoglobin Concent 32.6 % 32.8 % 33.3 % Red Cell Distribution Width 19.4 % 18.7 % 17.6 % Platelet Count 144 TH/MM3 151 TH/MM3 156 TH/MM3 Mean Platelet Volume 8.2 FL 7.6 FL 8.1 FL Neutrophils (%) (Auto) 78.2 % 77.8 % 80.3 % Lymphocytes (%) (Auto) 10.5 % 11.8 % 9.2 % Monocytes (%) (Auto) 8.5 % 7.3 % 8.1 % Eosinophils (%) (Auto) 2.0 % 2.7 % 2.2 % Basophils (%) (Auto) 0.8 % 0.4 % 0.2 % Neutrophils # (Auto) 6.6 TH/MM3 6.2 TH/MM3 7.1 TH/MM3 Lymphocytes # (Auto) 0.9 TH/MM3 0.9 TH/MM3 0.8 TH/MM3 Monocytes # (Auto) 0.7 TH/MM3 0.6 TH/MM3 0.7 TH/MM3 Eosinophils # (Auto) 0.2 TH/MM3 0.2 TH/MM3 0.2 TH/MM3 Basophils # (Auto) 0.1 TH/MM3 0.0 TH/MM3 0.0 TH/MM3 CBC Comment DIFF FINAL DIFF FINAL DIFF FINAL Differential Comment Blood Urea Nitrogen 30 MG/DL 31 MG/DL 31 MG/DL Creatinine 2.08 MG/DL 1.99 MG/DL 2.03 MG/DL Random Glucose 130 MG/DL 123 MG/DL 129 MG/DL Calcium Level 7.6 MG/DL 7.7 MG/DL 7.8 MG/DL Sodium Level 142 MEQ/L 141 MEQ/L 141 MEQ/L Potassium Level 3.6 MEQ/L 3.7 MEQ/L 3.3 MEQ/L Chloride Level 114 MEQ/L 113 MEQ/L 111 MEQ/L Carbon Dioxide Level 20.1 MEQ/L 19.8 MEQ/L 22.4 MEQ/L Anion Gap 8 MEQ/L 8 MEQ/L 8 MEQ/L Estimat Glomerular Filtration Rate 31 ML/MIN 33 ML/MIN 32 ML/MIN Prothrombin Time 12.6 SEC 12.5 SEC Prothromb Time International Ratio 1.1 RATIO 1.1 RATIO Total Protein 5.0 GM/DL 5.5 GM/DL Albumin 2.0 GM/DL 2.3 GM/DL Phosphorus Level 3.0 MG/DL 3.6 MG/DL Magnesium Level 2.0 MG/DL 2.0 MG/DL Alkaline Phosphatase 107 U/L 133 U/L Aspartate Amino Transf (AST/SGOT) 17 U/L 16 U/L Alanine Aminotransferase (ALT/SGPT) 32 U/L 29 U/L Total Bilirubin 0.5 MG/DL 1.0 MG/DL Hemoglobin A1c 5.2 % Free Thyroxine 0.93 NG/DL Thyroid Stimulating Hormone 3rd Gen 4.210 uIU/ML Imaging Last Impressions Renal Ultrasound 03/16/17 0000 Signed Impressions: Service Date/Time: Thursday, March 16, 2017 13:26 - CONCLUSION: Negative for stone, mass or obstruction. Nasim Ramsay MD FACR Head CT 03/15/17 1800 Signed Impressions: Service Date/Time: Wednesday, March 15, 2017 18:21 - CONCLUSION: 1. No acute intracranial hemorrhage. 2. 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 3. Bilateral cortical atrophy. Chadd Vásquez MD Chest X-Ray 03/15/17 1800 Signed Impressions: Service Date/Time: Wednesday, March 15, 2017 18:02 - CONCLUSION: No acute disease. Chadd Vásquez MD Objective Remarks GENERAL: Awake alert and talkative and cooperative tolerating a diet at this time SKIN: Warm and dry. HEAD: Atraumatic. Normocephalic. EYES: Pupils equal and round. No scleral icterus. No injection or drainage. Extraocular muscles grossly intact ENT: No nasal bleeding or discharge. Mucous membranes pink and moist. Tongue is midline NECK: Trachea midline. No JVD. Neck is supple CARDIOVASCULAR: Regular rate and rhythm. S1-S2 no S3 or S4 no heave or thrill or rub or gallop RESPIRATORY: No accessory muscle use. Clear to auscultation. Breath sounds equal bilaterally. GASTROINTESTINAL: Abdomen soft, non-tender, nondistended. Hepatic and splenic margins not palpable. MUSCULOSKELETAL: Extremities without clubbing, cyanosis, or edema. No obvious deformities. NEUROLOGICAL: Awake and alert. No obvious cranial nerve deficits. Motor grossly within normal limits. 4 out of 5 muscle strength in the arms and legs. Normal speech. PSYCHIATRIC: Appropriate mood and affect; insight and judgment normal. Medications and IVs Current Medications Sodium Chloride 250 ml @ 15 mls/hr ONCE ONCE IV ; Start 03/15/17 at 19:00; Stop 03/16/17 at 11:39; Status DC Phytonadione (Vitamin K Inj) 10 mg ONCE ONCE SQ Last administered on 19:09; Start 03/15/17 at 19:00; Stop 03/15/17 at 19:01; Status DC Sodium Chloride 500 ml @ 500 mls/hr BOLUS ONCE IV Last administered on 19:09; Start 03/15/17 at 19:00; Stop 03/15/17 at 19:59; Status DC Prothrombin Complex Concent (Human) 3704 units/Syringe / Bag 0 ml @ 500 mls/hr ONCE ONCE IV Last administered on 03/15/17 20:35; Start 03/15/17 at 20:30; Stop 03/15/17 at 20:31; Status DC Sodium Chloride 250 ml @ 15 mls/hr ONCE ONCE IV ; Start 03/15/17 at 19:45; Stop 03/16/17 at 12:24; Status DC Sodium Chloride 1,000 ml @ 84 mls/hr [id number] IV Last administered on 03/18/17 06:35; Start 03/15/17 at 23:24; Stop 03/18/17 at 17:12; Status DC Sodium Chloride (NS Flush) 2 ml UNSCH PRN .XX FLUSH AFTER USING IV ACCESS; Start 03/15/17 at 23:30 Sodium Chloride (NS Flush) 2 ml BID .XX Last administered on 03/21/17 22:26; Start 03/16/17 at 09:00 Acetaminophen (Tylenol) 650 mg Q6H PRN PO PAIN 1-10 AND/OR FEVER >101F Last administered on 03/21/17 12:40; Start 03/15/17 at 23:30 Morphine Sulfate (Morphine Inj) 2 mg Q2H PRN IV PAIN SCALE 6 TO 10; Start 03/15 at 23:30 Pantoprazole Sodium (Protonix Inj) 40 mg Q12H IV Last administered on 01:16; Start 03/15/17 at 23:30; Stop 03/16/17 at 10:37; Status DC Ondansetron HCl (Zofran Inj) 4 mg Q6H PRN IV NAUSEA OR VOMITING Last administered on 03/17/17 21:16; Start 03/15/17 at 23:30 Zolpidem Tartrate (Ambien) 5 mg HS PRN PO INSOMNIA; Start 03/15/17 at 23:30 Albuterol/ Ipratropium (Duoneb Neb) 1 ampule Q2HR NEB PRN INH WHEEZING; Start 03/15/17 at 23:30; Stop 03/16/17 at 10:59; Status DC Miscellaneous Information 1 Q361D XX ; Start 03/15/17 at 23:30 Chlorhexidine Gluconate (Chlorhexidine 2% Cloth) Taper DAILY@04 TOP Last administered on 03/18/17 03:20; Start 03/16/17 at 04:00; Stop 03/12/18 at 03:59 Chlorhexidine Gluconate (Chlorhexidine 2% Cloth) 3 pack UNSCH PRN TOP HYGIENIC CARE; Start 03/15/17 at 23:30 Senna/Docusate Sodium (Andria-Colace) 1 tab BID PO Last administered on 03/21/17 09:43; Start 03/16/17 at 09:00 Magnesium Hydroxide (Milk Of Magnesia Liq) 30 ml Q12H PRN PO MILD - MODERATE CONSTIPATION; Start 03/15/17 at 23:30 Sennosides (Senokot) 17.2 mg Q12H PRN PO MODERATE - SEVERE CONSTIPATION; Start 03/15/17 at 23:30 Bisacodyl (Dulcolax Supp) 10 mg DAILY PRN RECTAL SEVERE CONSITIPATION; Start at 23:30 Lactulose (Lactulose Liq) 30 ml DAILY PRN PO SEVERE CONSITIPATION; Start at 23:30 Levothyroxine Sodium (Synthroid) 25 mcg DAILY@0600 PO Last administered on 06:14; Start 03/16/17 at 06:00 Pantoprazole Sodium 80 mg/ Sodium Chloride 35 ml @ 420 mls/hr Q5M ONCE IV Last administered on 03/16/17 13:17; Start 03/16/17 at 14:00; Stop 03/16/17 at 14:04; Status DC Pantoprazole Sodium 80 mg/ Sodium Chloride 100 ml @ 10 mls/hr Q10H IV Last administered on 03/19/17 20:47; Start 03/16/17 at 13:00; Stop 03/19/17 at 21:32; Status DC Albuterol/ Ipratropium (Duoneb Neb) 1 ampule Q6HR NEB NEB Last administered on 03/20/17 08:29; Start 03/16/17 at 16:00; Stop 03/20/17 at 15:59; Status DC Albuterol Sulfate (Albuterol Neb) 2.5 mg Q2HR NEB PRN NEB DYSPNEA Last administered on 03/21/17 00:39; Start 03/16/17 at 11:00; Stop 03/21/17 at 09:46; Status DC Dextrose (D50w (Vial) Inj) 50 ml UNSCH PRN IV HYPOGLYCEMIA-SEE COMMENTS; Start 03/16/17 at 11:00 Glucagon (Glucagon Inj) 1 mg UNSCH PRN OTHER HYPOGLYCEMIA-SEE COMMENTS; Start 03/16/17 at 11:00 Insulin Human Regular (NovoLIN R SUPPLEMENTAL SCALE) 1 ACHS SLIDING SCALE SQ Last administered on 03/21/17 12:39; Start 03/16/17 at 11:00 Propofol (Diprivan 200 Mg/20 ml Inj) 100 mg STK-MED ONCE IV ; Start 03/17/17 at 14:10; Stop 03/17/17 at 14:11; Status DC Miscellaneous Information ALL NURSING DEPARTME... UNSCH PRN .XX SEE LABEL COMMENTS; Start 03/17/17 at 12:36; Stop 03/18/17 at 12:35; Status DC Ketamine HCl (Ketalar Inj) 10 mg STK-MED ONCE IV ; Start 03/17/17 at 12:00; Stop 03/18/17 at 08:18; Status DC Potassium Bicarb/ Potassium Chloride (K-Lyte Cl Eff) 50 meq ONCE ONCE PO Last administered on 03/18/17 12:05; Start 03/18/17 at 10:45; Stop 03/18/17 at 10: 46; Status DC Carvedilol (Coreg) 3.125 mg Q12HR PO Last administered on 03/21/17 22:25; Start 03/18/17 at 21:00 Sodium Chloride 1,000 ml @ 30 mls/hr Q24H IV Last administered on 03/20/17 22: 34; Start 03/18/17 at 17:15; Stop 03/21/17 at 11:36; Status DC Potassium Chloride (KCl) 40 meq ONCE ONCE PO Last administered on 03/18/17 21: 24; Start 03/18/17 at 17:30; Stop 03/18/17 at 17:31; Status DC Sodium Chloride 250 ml @ 15 mls/hr ONCE ONCE IV ; Start 03/19/17 at 14:45; Stop 03/20/17 at 07:24; Status DC Pantoprazole Sodium (Protonix) 40 mg BIDAC PO Last administered on 03/22/17 06: 14; Start 03/20/17 at 07:00 Guaifenesin (Mucinex Er) 600 mg BID PO Last administered on 03/21/17 22:25; Start 03/20/17 at 09:00 Albuterol/ Ipratropium (Duoneb Neb) 1 ampule Q4HR NEB NEB Last administered on 03/22/17 08:53; Start 03/21/17 at 12:00 Albuterol/ Ipratropium (Duoneb Neb) 1 ampule Q2HR NEB PRN NEB SHORTNESS OF BREATH; Start 03/21/17 at 10:00 Sodium Chloride 250 ml @ 15 mls/hr ONCE ONCE IV Last administered on 9/4/ 17at 15:30; Start 03/21/17 at 10:00; Stop 03/22/17 at 02:39; Status DC Acetaminophen (Tylenol) 650 mg Q4H PRN PO SEE LABEL COMMENTS; Start 03/21/17 at 10:00; Stop 03/21/17 at 23:00; Status DC Diphenhydramine HCl (Benadryl) 25 mg Q4H PRN PO SEE LABEL COMMENTS; Start at 10:00; Stop 03/21/17 at 23:00; Status DC Furosemide (Lasix Inj) 20 mg ONCE ONCE IV Last administered on 03/21/17 19:58 ; Start 03/21/17 at 10:30; Stop 03/21/17 at 10:31; Status DC Potassium Chloride (KCl) 40 meq ONCE ONCE PO Last administered on 03/21/17 13: 36; Start 03/21/17 at 10:30; Stop 03/21/17 at 10:31; Status DC Iron Sucrose 100 mg/Sodium Chloride 105 ml @ 105 mls/hr DAILY IV Last administered on 03/21/17 13:37; Start 03/21/17 at 11:00; Stop 03/25/17 at 09:59 Furosemide (Lasix Inj) 20 mg ONCE ONCE IV Last administered on 03/21/17 22:27 ; Start 03/21/17 at 19:45; Stop 03/21/17 at 19:46; Status DC A/P Problem List: (1) Acute worsening of stage 3 chronic kidney disease ICD Code: N18.3 - Chronic kidney disease, stage 3 (moderate) (2) CAD (coronary artery disease) ICD Code: I25.10 - Atherosclerotic heart disease of [place] coronary artery without angina pectoris (3) NSTEMI (non-ST elevated myocardial infarction) ICD Code: I21.4 - Non-ST elevation (NSTEMI) myocardial infarction Status: Acute (4) Anemia ICD Code: D64.9 - Anemia, unspecified Status: Acute Assessment and Plan Dementia disorder NOS Left basal ganglia CVA Depression NOS - Holding mirtazapine 15 mg at night. - Holding sertraline 75 mg by mouth daily - Holding hydroxyazine 25 mg as needed Chronic systolic heart failure ejection fraction 35% Hypertension History of CABG Elevated troponin currently 4.1 likely type II non-STEMI secondary to demand ischemia Atrial fibrillation? - Likely demand ischemia from low blood volume. - Echocardiogram 03/16 revealed EF 35-40%. Moderate MR/TR. Trace AR. Mild CO. - Cardiology following patient. No acute interventions at this time. - Holding furosemide 40 mg daily and potassium chloride 20 mEq daily - Restarted carvedilol 3.125 mg PO daily by cardiology. - Holding lisinopril 2.5 mill grams daily light of GI bleed/acute kidney injury. - EKG ordered. Appears regular on telemetry. History COPD - Nasal cannula to maintain saturations greater than equal to 92% - Incentive spirometry while awake - On albuterol/ipratropium aerosols every 12 hours and nursing along with albuterol inhaler when necessary Gastroesophageal reflux disease - Currently on pantoprazole drip at 8 mg an hour. - EGD done 03/17 showing large ulcer at the Esopho-gastric anastomosis. Biopsy pending. Hypothyroidism Diabetes mellitus - Continue levothyroxine 50 mcg by mouth daily. TSH WNL. - Sliding-scale insulin to maintain euglycemia/low regimen of Novolin R with Accu-Cheks every 6 hours Acute kidney injury suspect secondary to ATN due to severe anemia - Unknown baseline creatinine. - Avoid nephrotoxic drugs. - Renal ultrasound revealed no hydronephrosis. - Urine electrolytes/eosinophils negative - Monitor urine output - Accurate I's and O's - Nephrology consulted and has seen patient, recommendations to wean off fluids, monitor intake and output with possible underlying CKD III. Acute blood loss anemia Leukocytosis Supratherapeutic INR secondary to warfarin History of pulmonary embolism - Received K Centra 3702 milligrams in ED 1. 10 mg of vitamin K. 1 FFP. Last INR 1.2. - Status post 3 units PRBCs. Repeat hemoglobin 7.2. Repeat CBC in am. Follow. - Serial hemoglobins - Holding warfarin, Spoke with GI, patient at risk for bleeding, another unit of PRBC ordered. Will follow. - Previously on iron sulfate 325 mg by mouth daily. ANEMIA SP TRANSFUSION- ON 03-21 --- IMPROVED Hypokalemia, status post replacement. K 3.3 WILL REPLACE today. GI prophylaxis: Pantoprazole drip. Appreciate GI recommendations. DVT prophylaxis: SCD/pharmacological prophylaxis contraindicated with active bleeding AM LABS, FOLLOW CBC, CMP AND MAG AND PHOS PT AND OT TO EVAL AND TREAT DW RN AND PT AND SON REPLACE POTASSIUM Problem Qualifiers (1) Anemia: Qualified Codes: D62 - Acute posthemorrhagic anemia Nasim Padron DO Mar 22, 2017 09:38
--- NOTE | 2017-03-22 09:39 | PD.CARD.PN ---
Subjective Subjective Remarks No events overnight Transfused 2 units PRBC yesterday Objective Medications Current Medications Medications (Trade) Dose Ordered Sig/Teodoro Route Start Time Stop Time Status Last Admin (NS Flush) 2 ml UNSCH PRN .XX 03/15/17 23:30 (NS Flush) 2 ml BID .XX 03/16/17 09:00 03/21/17 22:26 (Tylenol) 650 mg Q6H PRN PO 03/15/17 23:30 03/21/17 12:40 (Morphine Inj) 2 mg Q2H PRN IV 03/15/17 23:30 (Zofran Inj) 4 mg Q6H PRN IV 03/15/17 23:30 03/17/17 21:16 (Ambien) 5 mg HS PRN PO 03/15/17 23:30 Miscellaneous Information 1 Q361D XX 03/15/17 23:30 (Chlorhexidine 2% Cloth) Taper DAILY@04 TOP 03/16/17 04:00 03/12/18 03:59 03/18/17 03:20 (Chlorhexidine 2% Cloth) 3 pack UNSCH PRN TOP 03/15/17 23:30 (Andria-Colace) 1 tab BID PO 03/16/17 09:00 03/21/17 09:43 (Milk Of Magnesia Liq) 30 ml Q12H PRN PO 03/15/17 23:30 (Senokot) 17.2 mg Q12H PRN PO 03/15/17 23:30 (Dulcolax Supp) 10 mg DAILY PRN RECTAL 03/15/17 23:30 (Lactulose Liq) 30 ml DAILY PRN PO 03/15/17 23:30 (Synthroid) 25 mcg DAILY@0600 PO 03/16/17 06:00 03/22/17 06:14 (D50w (Vial) Inj) 50 ml UNSCH PRN IV 03/16/17 11:00 (Glucagon Inj) 1 mg UNSCH PRN OTHER 03/16/17 11:00 (NovoLIN R SUPPLEMENTAL SCALE) 1 ACHS SLIDING SCALE SQ 03/16/17 11:00 03/21/17 12:39 (Coreg) 3.125 mg Q12HR PO 03/18/17 21:00 03/21/17 22:25 (Protonix) 40 mg BIDAC PO 03/20/17 07:00 03/22/17 06:14 (Mucinex Er) 600 mg BID PO 03/20/17 09:00 03/21/17 22:25 (Duoneb Neb) 1 ampule Q4HR NEB NEB 03/21/17 12:00 03/22/17 08:53 (Duoneb Neb) 1 ampule Q2HR NEB PRN NEB 03/21/17 10:00 Iron Sucrose 100 mg/Sodium Chloride 105 ml @ 105 mls/hr DAILY IV 03/21/17 11:00 03/25/17 09:59 03/21/17 13:37 (KCl) 40 meq ONCE ONCE PO 03/22/17 09:30 03/22/17 09:31 UNV (KCl) 30 meq ONCE ONCE PO 03/22/17 09:45 03/22/17 09:46 UNV Vital Signs / I&O Vital Signs Date Time Temp Pulse Resp B/P (MAP) Pulse Ox O2 Delivery O2 Flow Rate FiO2 03/22/17 04:00 96.2 81 17 122/64 (83) 96 03/22/17 02:15 97.8 82 22 139/79 98 03/21/17 23:30 97.0 63 22 146/78 96 03/21/17 23:12 97.9 78 20 141/70 96 03/21/17 22:52 80 03/21/17 20:49 95 Nasal Cannula 3.00 03/21/17 20:00 98.3 78 17 122/66 (84) 99 03/21/17 19:00 98.0 72 16 122/69 100 03/21/17 17:30 97.0 72 16 141/73 100 03/21/17 16:23 96.3 58 20 114/60 (78) 100 03/21/17 16:00 71 03/21/17 15:48 96.3 70 18 107/70 100 03/21/17 15:33 96.2 57 18 114/60 100 03/21/17 15:33 96.2 57 16 114/60 (78) 100 03/21/17 12:13 96.9 77 21 134/69 (90) 96 03/21/17 11:59 3.00 I/O 03/21/17 03/21/17 03/21/17 03/22/17 03/22/17 9/5/17 06:59 14:59 22:59 06:59 14:59 22:59 Intake Total 120 ml 2680 ml 600 ml 270 ml Output Total 800 ml 3550 ml Balance 120 ml 2680 ml -200 ml -3280 ml Intake Oral 120 ml IV Total 2680 ml Packed Cells 250 ml 250 ml Blood Product IV Normal Saline Flush 350 ml 20 ml Output Urine Total 800 ml 3550 ml # Voids 2 1 # Bowel Movements 2 1 Physical Exam GENERAL: NAD, alert and awake SKIN: Warm and dry. HEAD: Atraumatic. Normocephalic. EYES: Pupils equal and round. No scleral icterus. No injection or drainage. ENT: No nasal bleeding or discharge. Mucous membranes pink and moist. NECK: Trachea midline. No JVD. CARDIOVASCULAR: Regular rate and rhythm. RESPIRATORY: No accessory muscle use. Clear to auscultation. Breath sounds equal bilaterally. GASTROINTESTINAL: Abdomen soft, non-tender, nondistended. Hepatic and splenic margins not palpable. MUSCULOSKELETAL: Extremities without clubbing, cyanosis, or edema. No obvious deformities. NEUROLOGICAL: Awake and alert. No obvious cranial nerve deficits. Motor grossly within normal limits. Five out of 5 muscle strength in the arms and legs. Normal speech. PSYCHIATRIC: Appropriate mood and affect; insight and judgment normal. Laboratory Laboratory Tests Test 03/22/17 07:03 White Blood Count 8.8 TH/MM3 Red Blood Count 3.50 MIL/MM3 Hemoglobin 10.3 GM/DL Hematocrit 31.1 % Mean Corpuscular Volume 88.8 FL Mean Corpuscular Hemoglobin 29.6 PG Mean Corpuscular Hemoglobin Concent 33.3 % Red Cell Distribution Width 17.6 % Platelet Count 156 TH/MM3 Mean Platelet Volume 8.1 FL Neutrophils (%) (Auto) 80.3 % Lymphocytes (%) (Auto) 9.2 % Monocytes (%) (Auto) 8.1 % Eosinophils (%) (Auto) 2.2 % Basophils (%) (Auto) 0.2 % Neutrophils # (Auto) 7.1 TH/MM3 Lymphocytes # (Auto) 0.8 TH/MM3 Monocytes # (Auto) 0.7 TH/MM3 Eosinophils # (Auto) 0.2 TH/MM3 Basophils # (Auto) 0.0 TH/MM3 CBC Comment DIFF FINAL Differential Comment Blood Urea Nitrogen 31 MG/DL Creatinine 2.03 MG/DL Random Glucose 129 MG/DL Total Protein 5.5 GM/DL Albumin 2.3 GM/DL Calcium Level 7.8 MG/DL Phosphorus Level 3.6 MG/DL Magnesium Level 2.0 MG/DL Alkaline Phosphatase 133 U/L Aspartate Amino Transf (AST/SGOT) 16 U/L Alanine Aminotransferase (ALT/SGPT) 29 U/L Total Bilirubin 1.0 MG/DL Sodium Level 141 MEQ/L Potassium Level 3.3 MEQ/L Chloride Level 111 MEQ/L Carbon Dioxide Level 22.4 MEQ/L Anion Gap 8 MEQ/L Estimat Glomerular Filtration Rate 32 ML/MIN Assessment and Plan Problem List: (1) GI bleed ICD Codes: K92.2 - Gastrointestinal hemorrhage, unspecified Status: Acute (2) Anemia ICD Codes: D64.9 - Anemia, unspecified Status: Acute (3) Coagulopathy ICD Codes: D68.9 - Coagulation defect, unspecified Status: Acute (4) NSTEMI (non-ST elevated myocardial infarction) ICD Codes: I21.4 - Non-ST elevation (NSTEMI) myocardial infarction Status: Acute (5) CAD (coronary artery disease) ICD Codes: I25.10 - Atherosclerotic heart disease of [place] coronary artery without angina pectoris (6) Hx of CABG ICD Codes: Z95.1 - Presence of aortocoronary bypass graft Assessment and Plan 1) Elevated troponin, most likely Type 2 due to Hbg being in the 5s 2) No further workup for NSTEMI due to GI Bleed 3) EGD per GI team Showing esophageal ulcer, Protonix BID 4) Eventual ASA if possible, once cleared by GI 5) Restarted Coreg with hold parameters 6) ELIZABETH on probably CKD Con't to hold JANIYA-I, Lasix Problem Qualifiers (1) GI bleed: Qualified Codes: K92.2 - Gastrointestinal hemorrhage, unspecified (2) Anemia: Qualified Codes: D62 - Acute posthemorrhagic anemia Jong Davis DO Mar 22, 2017 09:39
[2017-03-22] MEDS: guaiFENesin E.R. 600 MG TAB PO SCH ×2 (09:45→22:38)
[2017-03-22] MEDS: CARVEDILOL 3.125 MG TAB PO SCH ×2 (09:45→22:38)
[2017-03-22] MEDS ORDERED: POTASSIUM CHLORIDE 20 MEQ CONTROLLED RELEASE TAB PO ONE (09:45)
[2017-03-22] MEDS: IRON SUCROSE INJ 100 MG in SODIUM CHLORIDE 0.9% INJ 100 ML IV SCH (09:47)
[2017-03-22] MEDS: SODIUM CHLORIDE 0.9% FLUSH 10 ML FLUSH SCH ×2 (09:55→22:42)
[2017-03-22] MEDS ORDERED: POTASSIUM CHLORIDE 10 MEQ CONTROLLED RELEASE TAB PO ONE (12:00)
[2017-03-22] MEDS: DOCUSATE SODIUM 50 MG/SENNA 8.6 MG TAB PO SCH ×2 (13:14→22:38)
--- NOTE | 2017-03-22 16:09 | HHI.GIFU ---
Subjective Remarks Pt resting in bed, family at bedside. Per RN no sign bleeding. Pt eating but does not like chicken. No n/v, abd pain. Objective Vitals I&O Vital Signs Date Time Temp Pulse Resp B/P (MAP) Pulse Ox O2 Delivery O2 Flow Rate FiO2 03/22/17 12:30 98.1 85 18 132/75 (94) 98 03/22/17 11:56 98 Nasal Cannula 2.00 03/22/17 08:00 97.8 72 18 140/67 (91) 98 03/22/17 04:00 96.2 81 17 122/64 (83) 96 03/22/17 02:15 97.8 82 22 139/79 98 03/21/17 23:30 97.0 63 22 146/78 96 03/21/17 23:12 97.9 78 20 141/70 96 03/21/17 22:52 80 03/21/17 20:49 95 Nasal Cannula 3.00 03/21/17 20:00 98.3 78 17 122/66 (84) 99 03/21/17 19:00 98.0 72 16 122/69 100 03/21/17 17:30 97.0 72 16 141/73 100 03/21/17 16:23 96.3 58 20 114/60 (78) 100 I/O 03/21/17 03/21/17 03/21/17 03/22/17 03/22/17 03/22/17 07:00 15:00 23:00 07:00 15:00 23:00 Intake Total 120 ml 2680 ml 600 ml 270 ml Output Total 800 ml 3550 ml Balance 120 ml 2680 ml -200 ml -3280 ml Intake Oral 120 ml IV Total 2680 ml Packed Cells 250 ml 250 ml Blood Product IV Normal Saline Flush 350 ml 20 ml Output Urine Total 800 ml 3550 ml # Voids 2 1 # Bowel Movements 2 1 Laboratory Laboratory Tests Test 03/22/17 07:03 White Blood Count 8.8 Red Blood Count 3.50 Hemoglobin 10.3 Hematocrit 31.1 Mean Corpuscular Volume 88.8 Mean Corpuscular Hemoglobin 29.6 Mean Corpuscular Hemoglobin Concent 33.3 Red Cell Distribution Width 17.6 Platelet Count 156 Mean Platelet Volume 8.1 Neutrophils (%) (Auto) 80.3 Lymphocytes (%) (Auto) 9.2 Monocytes (%) (Auto) 8.1 Eosinophils (%) (Auto) 2.2 Basophils (%) (Auto) 0.2 Neutrophils # (Auto) 7.1 Lymphocytes # (Auto) 0.8 Monocytes # (Auto) 0.7 Eosinophils # (Auto) 0.2 Basophils # (Auto) 0.0 CBC Comment DIFF FINAL Differential Comment Blood Urea Nitrogen 31 Creatinine 2.03 Random Glucose 129 Total Protein 5.5 Albumin 2.3 Calcium Level 7.8 Phosphorus Level 3.6 Magnesium Level 2.0 Alkaline Phosphatase 133 Aspartate Amino Transf (AST/SGOT) 16 Alanine Aminotransferase (ALT/SGPT) 29 Total Bilirubin 1.0 Sodium Level 141 Potassium Level 3.3 Chloride Level 111 Carbon Dioxide Level 22.4 Anion Gap 8 Estimat Glomerular Filtration Rate 32 Imaging Last Impressions Renal Ultrasound 03/16/17 0000 Signed Impressions: Service Date/Time: Thursday, March 16, 2017 13:26 - CONCLUSION: Negative for stone, mass or obstruction. Nasim Ramsay MD FACR Head CT 03/15/17 1800 Signed Impressions: Service Date/Time: Wednesday, March 15, 2017 18:21 - CONCLUSION: 1. No acute intracranial hemorrhage. 2. 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 3. Bilateral cortical atrophy. Chadd Vásquez MD Chest X-Ray 03/15/17 1800 Signed Impressions: Service Date/Time: Wednesday, March 15, 2017 18:02 - CONCLUSION: No acute disease. Chadd Vásquez MD Physical Exam HEENT: Normocephalic; atraumatic; no jaundice. CHEST: CTA CARDIAC: RRR ABDOMEN: Soft, nondistended, nontender; no hepatosplenomegaly; bowel sounds are present x 4 EXTREMITIES: No clubbing, cyanosis,mild edema right lower leg SKIN: pale; no rash; no jaundice. 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 Pt brought to ER for diarrhea, generalized weakness. Had black tarry stool in ER. On Coumadin at home for PE, was found to have severe anemia with HH of 5.1/15.3. S/P 4 units of PRBC s/p 1 unit FFP, Kcentra, and Vitamin K No further active bleeding. s/p EGD found large ulcer, esophagitis, gastritis. path benign. - Severe anemia, acute blood loss.had decline hgb, s/p 2 X PRBC now up to 10.3 - Coagulopathy/Coumadin toxicity. INR of 17.1, s/p 1 unit FFP, Kcentra, and Vitamin K and this improved - Leukocytosis. improved - ELIZABETH, Creat 2.44 admission, nephrology following. - Elevated troponin with CHF, HTN, CAD, per CCM - Dementia/CVA, COPD, Hypothyroidism, DM per CCM - Hx PE, on Coumadin as outpatient. Coumadin on hold for elevated INR/GIB. PLAN: - Warfarin on hold - Notify GI of active bleeding - Monitor HH, transfuse as necessary - Soft diet - Cont. Protonix 40mg PO BID - Supportive care - Further recommendations to follow based on results of above Patient seen and examined by Dr Coffey and myself and this note is written on his behalf Geno Starks Mar 22, 2017 16:09
[2017-03-23] VITALS: BP 127/70; PULSE 66; PULSE 69; RESP 18; TEMP 97.9; O2SAT 97
[2017-03-23 04:00] VITALS: BP 126/65; PULSE 73; PULSE 74; RESP 17; TEMP 97.4; O2SAT 98
[2017-03-23] MEDS: CHLORHEXIDINE GLUCONATE 2 % 1 PACK (2 CLOTHS) TOP SCH (04:00)
[2017-03-23] MEDS: RESP: ALBUTEROL 2.5 MG/IPRATROPIUM 0.5 MG NEB (SCH) NEB ×2 (05:10→08:56)
[2017-03-23] MEDS: LEVOTHYROXINE SODIUM 25 MCG TAB PO SCH (05:58)
[2017-03-23] MEDS: PANTOPRAZOLE SOD 40 MG DELAYED RELEASE TAB PO SCH (05:58)
[2017-03-23] MEDS: INSULIN NovoLIN REGULAR SUPPLEMENTAL SCALE SQ SCH ×2 (06:26→11:15)
[2017-03-23 07:47] VITALS: PULSE 81
[2017-03-23 08:00] VITALS: BP 139/71; PULSE 77; RESP 20; TEMP 95.5; O2SAT 96
[2017-03-23 08:08] LABS: AUTOMATED NEUTROPHIL # 6.8 TH/MM3 (1.8-7.7); BASOPHIL # 0.1 TH/MM3 (0-0.2); BASOPHIL % 0.7 % (0.0-2.0); EOSINOPHIL # 0.2 TH/MM3 (0-0.4); EOSINOPHIL % 2.2 % (0.0-4.0); HEMATOCRIT 31.4 % (39.0-51.0); HEMO FLAGS DIFF FINAL; LYMPH % 9.7 % (9.0-44.0); LYMPHOCYTE # 0.8 TH/MM3 (1.0-4.8); MEAN CELL VOLUME 90.2 FL (80.0-100.0); MEAN CORPUSCULAR HEMOGLOBIN 29.8 PG (27.0-34.0); MEAN CORPUSCULAR HGB CONC 33.1 % (32.0-36.0); MONO % 7.5 % (0.0-8.0); NEUT % 79.9 % (16.0-70.0); PLATELET COUNT 171 TH/MM3 (150-450); RED BLOOD COUNT 3.48 MIL/MM3 (4.50-5.90); RED CELL DISTRIBUTION WIDTH 17.8 % (11.6-17.2); WHITE BLOOD COUNT 8.5 TH/MM3 (4.0-11.0)
[2017-03-23] MEDS: guaiFENesin E.R. 600 MG TAB PO SCH (08:21)
[2017-03-23] MEDS: DOCUSATE SODIUM 50 MG/SENNA 8.6 MG TAB PO SCH (08:21)
[2017-03-23] MEDS: CARVEDILOL 3.125 MG TAB PO SCH (08:21)
[2017-03-23] MEDS: IRON SUCROSE INJ 100 MG in SODIUM CHLORIDE 0.9% INJ 100 ML IV SCH (08:22)
[2017-03-23] MEDS: SODIUM CHLORIDE 0.9% FLUSH 10 ML FLUSH SCH (08:25)
[2017-03-23 08:43] LABS: ALT (GPT) 25 U/L (12-78); ANION GAP 9 MEQ/L (5-15); AST (GOT) 11 U/L (15-37); BICARBONATE 24.1 MEQ/L (21.0-32.0); BLOOD UREA NITROGEN 29 MG/DL (7-18); CHLORIDE 111 MEQ/L (98-107); GLOMERULAR FILTRATION RATE 30 ML/MIN (>89); POTASSIUM 3.6 MEQ/L (3.5-5.1); SODIUM (NA) 144 MEQ/L (136-145)
[2017-03-23 08:45] LABS: ALKALINE PHOSPHATASE 158 U/L (45-117); TOTAL BILIRUBIN ADULT 0.7 MG/DL (0.2-1.0)
[2017-03-23] MEDS ORDERED: ASPIRIN EC 81 MG TABEC PO ONE (10:00)
--- NOTE | 2017-03-23 10:10 | HHI.PR ---
Subjective Remarks Much more awake and alert slowly improving according to son Discussed with patient and RN and son Has had diet and is tolerating it well Needs physical therapy and occupational therapy Hopefully home in the next 24-48 hours will probably need home health versus SNF PT and OT to eval and treat A.m. labs May need home health care 9-4 WILL TRANSFUSE PATIENT DW RN AND PT AND SON AM LABS INCREASE ACTIVITY 9-5 HAD TRANSFUSIONS YESTERDAY HGB AT 10 NOW DW RN AND PT AND FAMILY LIVES IN [facility], MAY NEED REHAB SNF WANTS [facility] ST[facility] VERY WEAK REPLACE HYPOKALEMIA AM LABS 9-6 ACCEPTED AT [facility] DW CARDIO [id number] PO DAILY DW RN AND PT AND SON DC TO SNF TODAY Objective Vitals Vital Signs Date Time Temp Pulse Resp B/P (MAP) Pulse Ox O2 Delivery O2 Flow Rate FiO2 03/23/17 08:00 95.5 77 20 139/71 (93) 96 03/23/17 07:47 81 03/23/17 04:00 73 03/23/17 04:00 97.4 74 17 126/65 (85) 98 03/23/17 00:00 66 03/23/17 00:00 97.9 69 18 127/70 (89) 97 03/22/17 20:00 97.9 76 18 129/62 (84) 95 03/22/17 20:00 72 03/22/17 16:24 77 03/22/17 16:06 99 Nasal Cannula 2.00 03/22/17 16:00 99.3 76 18 139/69 (92) 98 03/22/17 12:30 98.1 85 18 132/75 (94) 98 03/22/17 11:56 98 Nasal Cannula 2.00 I/O 03/22/17 03/22/17 03/22/17 03/23/17 03/23/17 03/23/17 07:00 15:00 23:00 07:00 15:00 23:00 Intake Total 270 ml 630 ml 150 ml 105 ml Output Total 3550 ml 950 ml 200 ml 650 ml Balance -3280 ml -320 ml -200 ml -500 ml 105 ml Intake Oral 630 ml 150 ml IV Total 105 ml Packed Cells 250 ml Blood Product IV Normal Saline Flush 20 ml Output Urine Total 3550 ml 950 ml 200 ml 650 ml # Bowel Movements 1 1 Result Diagram: 03/23/17 0756 03/23/17 0756 Other Results Laboratory Tests Test 03/20/17 14:15 03/21/17 06:34 03/22/17 07:03 03/23/17 07:56 Prothrombin Time 12.6 SEC 12.5 SEC Prothromb Time International Ratio 1.1 RATIO 1.1 RATIO White Blood Count 7.9 TH/MM3 8.8 TH/MM3 8.5 TH/MM3 Red Blood Count 2.66 MIL/MM3 3.50 MIL/MM3 3.48 MIL/MM3 Hemoglobin 7.8 GM/DL 10.3 GM/DL 10.4 GM/DL Hematocrit 23.8 % 31.1 % 31.4 % Mean Corpuscular Volume 89.5 FL 88.8 FL 90.2 FL Mean Corpuscular Hemoglobin 29.4 PG 29.6 PG 29.8 PG Mean Corpuscular Hemoglobin Concent 32.8 % 33.3 % 33.1 % Red Cell Distribution Width 18.7 % 17.6 % 17.8 % Platelet Count 151 TH/MM3 156 TH/MM3 171 TH/MM3 Mean Platelet Volume 7.6 FL 8.1 FL 7.9 FL Neutrophils (%) (Auto) 77.8 % 80.3 % 79.9 % Lymphocytes (%) (Auto) 11.8 % 9.2 % 9.7 % Monocytes (%) (Auto) 7.3 % 8.1 % 7.5 % Eosinophils (%) (Auto) 2.7 % 2.2 % 2.2 % Basophils (%) (Auto) 0.4 % 0.2 % 0.7 % Neutrophils # (Auto) 6.2 TH/MM3 7.1 TH/MM3 6.8 TH/MM3 Lymphocytes # (Auto) 0.9 TH/MM3 0.8 TH/MM3 0.8 TH/MM3 Monocytes # (Auto) 0.6 TH/MM3 0.7 TH/MM3 0.6 TH/MM3 Eosinophils # (Auto) 0.2 TH/MM3 0.2 TH/MM3 0.2 TH/MM3 Basophils # (Auto) 0.0 TH/MM3 0.0 TH/MM3 0.1 TH/MM3 CBC Comment DIFF FINAL DIFF FINAL DIFF FINAL Differential Comment Blood Urea Nitrogen 31 MG/DL 31 MG/DL 29 MG/DL Creatinine 1.99 MG/DL 2.03 MG/DL 2.13 MG/DL Random Glucose 123 MG/DL 129 MG/DL 143 MG/DL Total Protein 5.0 GM/DL 5.5 GM/DL 5.7 GM/DL Albumin 2.0 GM/DL 2.3 GM/DL 2.1 GM/DL Calcium Level 7.7 MG/DL 7.8 MG/DL 7.6 MG/DL Phosphorus Level 3.0 MG/DL 3.6 MG/DL 3.1 MG/DL Magnesium Level 2.0 MG/DL 2.0 MG/DL 2.0 MG/DL Alkaline Phosphatase 107 U/L 133 U/L 158 U/L Aspartate Amino Transf (AST/SGOT) 17 U/L 16 U/L 11 U/L Alanine Aminotransferase (ALT/SGPT) 32 U/L 29 U/L 25 U/L Total Bilirubin 0.5 MG/DL 1.0 MG/DL 0.7 MG/DL Sodium Level 141 MEQ/L 141 MEQ/L 144 MEQ/L Potassium Level 3.7 MEQ/L 3.3 MEQ/L 3.6 MEQ/L Chloride Level 113 MEQ/L 111 MEQ/L 111 MEQ/L Carbon Dioxide Level 19.8 MEQ/L 22.4 MEQ/L 24.1 MEQ/L Anion Gap 8 MEQ/L 8 MEQ/L 9 MEQ/L Estimat Glomerular Filtration Rate 33 ML/MIN 32 ML/MIN 30 ML/MIN Hemoglobin A1c 5.2 % Free Thyroxine 0.93 NG/DL Thyroid Stimulating Hormone 3rd Gen 4.210 uIU/ML Imaging Last Impressions Renal Ultrasound 03/16/17 0000 Signed Impressions: Service Date/Time: Thursday, March 16, 2017 13:26 - CONCLUSION: Negative for stone, mass or obstruction. Nasim Ramsay MD FACR Head CT 03/15/17 1800 Signed Impressions: Service Date/Time: Wednesday, March 15, 2017 18:21 - CONCLUSION: 1. No acute intracranial hemorrhage. 2. 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 3. Bilateral cortical atrophy. Chadd Vásquez MD Chest X-Ray 03/15/17 1800 Signed Impressions: Service Date/Time: Wednesday, March 15, 2017 18:02 - CONCLUSION: No acute disease. Chadd Vásquez MD Objective Remarks GENERAL: Awake alert and talkative and cooperative tolerating a diet at this time SKIN: Warm and dry. HEAD: Atraumatic. Normocephalic. EYES: Pupils equal and round. No scleral icterus. No injection or drainage. Extraocular muscles grossly intact ENT: No nasal bleeding or discharge. Mucous membranes pink and moist. Tongue is midline NECK: Trachea midline. No JVD. Neck is supple CARDIOVASCULAR: Regular rate and rhythm. S1-S2 no S3 or S4 no heave or thrill or rub or gallop RESPIRATORY: No accessory muscle use. Clear to auscultation. Breath sounds equal bilaterally. GASTROINTESTINAL: Abdomen soft, non-tender, nondistended. Hepatic and splenic margins not palpable. MUSCULOSKELETAL: Extremities without clubbing, cyanosis, or edema. No obvious deformities. NEUROLOGICAL: Awake and alert. No obvious cranial nerve deficits. Motor grossly within normal limits. 4 out of 5 muscle strength in the arms and legs. Normal speech. PSYCHIATRIC: Appropriate mood and affect; insight and judgment normal. Procedures 03-18 s/p EGD found large ulcer, esophagitis, gastritis. path benign. Medications and IVs Current Medications Sodium Chloride 250 ml @ 15 mls/hr ONCE ONCE IV ; Start 03/15/17 at 19:00; Stop 03/16/17 at 11:39; Status DC Phytonadione (Vitamin K Inj) 10 mg ONCE ONCE SQ Last administered on 19:09; Start 03/15/17 at 19:00; Stop 03/15/17 at 19:01; Status DC Sodium Chloride 500 ml @ 500 mls/hr BOLUS ONCE IV Last administered on 19:09; Start 03/15/17 at 19:00; Stop 03/15/17 at 19:59; Status DC Prothrombin Complex Concent (Human) 3704 units/Syringe / Bag 0 ml @ 500 mls/hr ONCE ONCE IV Last administered on 03/15/17 20:35; Start 03/15/17 at 20:30; Stop 03/15/17 at 20:31; Status DC Sodium Chloride 250 ml @ 15 mls/hr ONCE ONCE IV ; Start 03/15/17 at 19:45; Stop 03/16/17 at 12:24; Status DC Sodium Chloride 1,000 ml @ 84 mls/hr [id number] IV Last administered on 03/18/17 06:35; Start 03/15/17 at 23:24; Stop 03/18/17 at 17:12; Status DC Sodium Chloride (NS Flush) 2 ml UNSCH PRN .XX FLUSH AFTER USING IV ACCESS; Start 03/15/17 at 23:30 Sodium Chloride (NS Flush) 2 ml BID .XX Last administered on 03/23/17 08:25; Start 03/16/17 at 09:00 Acetaminophen (Tylenol) 650 mg Q6H PRN PO PAIN 1-10 AND/OR FEVER >101F Last administered on 03/21/17 12:40; Start 03/15/17 at 23:30 Morphine Sulfate (Morphine Inj) 2 mg Q2H PRN IV PAIN SCALE 6 TO 10; Start 03/15 at 23:30 Pantoprazole Sodium (Protonix Inj) 40 mg Q12H IV Last administered on 01:16; Start 03/15/17 at 23:30; Stop 03/16/17 at 10:37; Status DC Ondansetron HCl (Zofran Inj) 4 mg Q6H PRN IV NAUSEA OR VOMITING Last administered on 03/17/17 21:16; Start 03/15/17 at 23:30 Zolpidem Tartrate (Ambien) 5 mg HS PRN PO INSOMNIA; Start 03/15/17 at 23:30 Albuterol/ Ipratropium (Duoneb Neb) 1 ampule Q2HR NEB PRN INH WHEEZING; Start 03/15/17 at 23:30; Stop 03/16/17 at 10:59; Status DC Miscellaneous Information 1 Q361D XX ; Start 03/15/17 at 23:30 Chlorhexidine Gluconate (Chlorhexidine 2% Cloth) Taper DAILY@04 TOP Last administered on 03/18/17 03:20; Start 03/16/17 at 04:00; Stop 03/12/18 at 03:59 Chlorhexidine Gluconate (Chlorhexidine 2% Cloth) 3 pack UNSCH PRN TOP HYGIENIC CARE; Start 03/15/17 at 23:30 Senna/Docusate Sodium (Andria-Colace) 1 tab BID PO Last administered on 03/23/17 08:21; Start 03/16/17 at 09:00 Magnesium Hydroxide (Milk Of Magnesia Liq) 30 ml Q12H PRN PO MILD - MODERATE CONSTIPATION; Start 03/15/17 at 23:30 Sennosides (Senokot) 17.2 mg Q12H PRN PO MODERATE - SEVERE CONSTIPATION; Start 03/15/17 at 23:30 Bisacodyl (Dulcolax Supp) 10 mg DAILY PRN RECTAL SEVERE CONSITIPATION; Start at 23:30 Lactulose (Lactulose Liq) 30 ml DAILY PRN PO SEVERE CONSITIPATION; Start at 23:30 Levothyroxine Sodium (Synthroid) 25 mcg DAILY@0600 PO Last administered on 05:58; Start 03/16/17 at 06:00 Pantoprazole Sodium 80 mg/ Sodium Chloride 35 ml @ 420 mls/hr Q5M ONCE IV Last administered on 03/16/17 13:17; Start 03/16/17 at 14:00; Stop 03/16/17 at 14:04; Status DC Pantoprazole Sodium 80 mg/ Sodium Chloride 100 ml @ 10 mls/hr Q10H IV Last administered on 03/19/17 20:47; Start 03/16/17 at 13:00; Stop 03/19/17 at 21:32; Status DC Albuterol/ Ipratropium (Duoneb Neb) 1 ampule Q6HR NEB NEB Last administered on 03/20/17 08:29; Start 03/16/17 at 16:00; Stop 03/20/17 at 15:59; Status DC Albuterol Sulfate (Albuterol Neb) 2.5 mg Q2HR NEB PRN NEB DYSPNEA Last administered on 03/21/17 00:39; Start 03/16/17 at 11:00; Stop 03/21/17 at 09:46; Status DC Dextrose (D50w (Vial) Inj) 50 ml UNSCH PRN IV HYPOGLYCEMIA-SEE COMMENTS; Start 03/16/17 at 11:00 Glucagon (Glucagon Inj) 1 mg UNSCH PRN OTHER HYPOGLYCEMIA-SEE COMMENTS; Start 03/16/17 at 11:00 Insulin Human Regular (NovoLIN R SUPPLEMENTAL SCALE) 1 ACHS SLIDING SCALE SQ Last administered on 03/22/17 16:54; Start 03/16/17 at 11:00 Propofol (Diprivan 200 Mg/20 ml Inj) 100 mg STK-MED ONCE IV ; Start 03/17/17 at 14:10; Stop 03/17/17 at 14:11; Status DC Miscellaneous Information ALL NURSING DEPARTME... UNSCH PRN .XX SEE LABEL COMMENTS; Start 03/17/17 at 12:36; Stop 03/18/17 at 12:35; Status DC Ketamine HCl (Ketalar Inj) 10 mg STK-MED ONCE IV ; Start 03/17/17 at 12:00; Stop 03/18/17 at 08:18; Status DC Potassium Bicarb/ Potassium Chloride (K-Lyte Cl Eff) 50 meq ONCE ONCE PO Last administered on 03/18/17 12:05; Start 03/18/17 at 10:45; Stop 03/18/17 at 10: 46; Status DC Carvedilol (Coreg) 3.125 mg Q12HR PO Last administered on 03/23/17 08:21; Start 03/18/17 at 21:00 Sodium Chloride 1,000 ml @ 30 mls/hr Q24H IV Last administered on 03/20/17 22: 34; Start 03/18/17 at 17:15; Stop 03/21/17 at 11:36; Status DC Potassium Chloride (KCl) 40 meq ONCE ONCE PO Last administered on 03/18/17 21: 24; Start 03/18/17 at 17:30; Stop 03/18/17 at 17:31; Status DC Sodium Chloride 250 ml @ 15 mls/hr ONCE ONCE IV ; Start 03/19/17 at 14:45; Stop 03/20/17 at 07:24; Status DC Pantoprazole Sodium (Protonix) 40 mg BIDAC PO Last administered on 03/23/17 05: 58; Start 03/20/17 at 07:00 Guaifenesin (Mucinex Er) 600 mg BID PO Last administered on 03/23/17 08:21; Start 03/20/17 at 09:00 Albuterol/ Ipratropium (Duoneb Neb) 1 ampule Q4HR NEB NEB Last administered on 03/23/17 08:56; Start 03/21/17 at 12:00 Albuterol/ Ipratropium (Duoneb Neb) 1 ampule Q2HR NEB PRN NEB SHORTNESS OF BREATH; Start 03/21/17 at 10:00 Sodium Chloride 250 ml @ 15 mls/hr ONCE ONCE IV Last administered on 15:30; Start 03/21/17 at 10:00; Stop 03/22/17 at 02:39; Status DC Acetaminophen (Tylenol) 650 mg Q4H PRN PO SEE LABEL COMMENTS; Start 03/21/17 at 10:00; Stop 03/21/17 at 23:00; Status DC Diphenhydramine HCl (Benadryl) 25 mg Q4H PRN PO SEE LABEL COMMENTS; Start at 10:00; Stop 03/21/17 at 23:00; Status DC Furosemide (Lasix Inj) 20 mg ONCE ONCE IV Last administered on 03/21/17 19:58 ; Start 03/21/17 at 10:30; Stop 03/21/17 at 10:31; Status DC Potassium Chloride (KCl) 40 meq ONCE ONCE PO Last administered on 03/21/17 13: 36; Start 03/21/17 at 10:30; Stop 03/21/17 at 10:31; Status DC Iron Sucrose 100 mg/Sodium Chloride 105 ml @ 105 mls/hr DAILY IV Last administered on 03/23/17 08:22; Start 03/21/17 at 11:00; Stop 03/25/17 at 09:59 Furosemide (Lasix Inj) 20 mg ONCE ONCE IV Last administered on 03/21/17 22:27 ; Start 03/21/17 at 19:45; Stop 03/21/17 at 19:46; Status DC Potassium Chloride (KCl) 40 meq ONCE ONCE PO Last administered on 03/22/17 13: 11; Start 03/22/17 at 12:00; Stop 03/22/17 at 12:01; Status DC Potassium Chloride (KCl) 30 meq ONCE ONCE PO ; Start 03/22/17 at 09:45; Stop 03/22/17 at 09:46; Status Cancel Aspirin (Ecotrin Ec) 81 mg ONCE ONCE PO ; Start 03/23/17 at 10:00; Stop 03/23/17 at 10:01; Status UNV Aspirin (Ecotrin Ec) 81 mg DAILY PO ; Start 03/24/17 at 09:00; Status UNV Urinary Catheter: Yes Assessment to: Continue Waldrop insert reason: Obstruction/Retention Vascular Central Line Catheter: No A/P Problem List: (1) Acute worsening of stage 3 chronic kidney disease ICD Code: N18.3 - Chronic kidney disease, stage 3 (moderate) (2) CAD (coronary artery disease) ICD Code: I25.10 - Atherosclerotic heart disease of [place] coronary artery without angina pectoris (3) NSTEMI (non-ST elevated myocardial infarction) ICD Code: I21.4 - Non-ST elevation (NSTEMI) myocardial infarction Status: Acute (4) Anemia ICD Code: D64.9 - Anemia, unspecified Status: Acute Assessment and Plan Dementia disorder NOS Left basal ganglia CVA Depression NOS - Holding mirtazapine 15 mg at night. - Holding sertraline 75 mg by mouth daily - Holding hydroxyazine 25 mg as needed Chronic systolic heart failure ejection fraction 35% Hypertension History of CABG Elevated troponin currently 4.1 likely type II non-STEMI secondary to demand ischemia Atrial fibrillation? - Likely demand ischemia from low blood volume. - Echocardiogram 03/16 revealed EF 35-40%. Moderate MR/TR. Trace AR. Mild OR. - Cardiology following patient. No acute interventions at this time. - Holding furosemide 40 mg daily and potassium chloride 20 mEq daily - Restarted carvedilol 3.125 mg PO daily by cardiology. - Holding lisinopril 2.5 mill grams daily light of GI bleed/acute kidney injury. - EKG ordered. Appears regular on telemetry. History COPD - Nasal cannula to maintain saturations greater than equal to 92% - Incentive spirometry while awake - On albuterol/ipratropium aerosols every 12 hours and nursing along with albuterol inhaler when necessary Gastroesophageal reflux disease - Currently on pantoprazole drip at 8 mg an hour. - EGD done 03/17 showing large ulcer at the Esopho-gastric anastomosis. Biopsy pending. Hypothyroidism Diabetes mellitus - Continue levothyroxine 50 mcg by mouth daily. TSH WNL. - Sliding-scale insulin to maintain euglycemia/low regimen of Novolin R with Accu-Cheks every 6 hours Acute kidney injury suspect secondary to ATN due to severe anemia - Unknown baseline creatinine. - Avoid nephrotoxic drugs. - Renal ultrasound revealed no hydronephrosis. - Urine electrolytes/eosinophils negative - Monitor urine output - Accurate I's and O's - Nephrology consulted and has seen patient, recommendations to wean off fluids, monitor intake and output with possible underlying CKD III. Acute blood loss anemia Leukocytosis Supratherapeutic INR secondary to warfarin History of pulmonary embolism - Received K Centra 3702 milligrams in ED 1. 10 mg of vitamin K. 1 FFP. Last INR 1.2. - Status post 3 units PRBCs. Repeat hemoglobin 7.2. Repeat CBC in am. Follow. - Serial hemoglobins - Holding warfarin, Spoke with GI, patient at risk for bleeding, another unit of PRBC ordered. Will follow. - Previously on iron sulfate 325 mg by mouth daily. ANEMIA SP TRANSFUSION- ON 03-21 --- IMPROVED Hypokalemia, status post replacement. K 3.3 WILL REPLACE today. GI prophylaxis: Pantoprazole drip. Appreciate GI recommendations. DVT prophylaxis: SCD/pharmacological prophylaxis contraindicated with active bleeding AM LABS, FOLLOW CBC, CMP AND MAG AND PHOS PT AND OT TO EVAL AND TREAT DW RN AND PT AND SON CLEARED BY ALL DC TO SNF TODAY Discharge Planning SNF TODAY Problem Qualifiers (1) Anemia: Qualified Codes: D62 - Acute posthemorrhagic anemia Nasim Padron DO Mar 23, 2017 10:10
[2017-03-23] MEDS ORDERED: ACET1TAB86 PO (10:21)
[2017-03-23] MEDS ORDERED: ASPI-99 PO (10:21)
[2017-03-23] MEDS ORDERED: IPRASOL NEB ×2 (10:21)
[2017-03-23] MEDS ORDERED: PANT40TA3 PO (10:21)
[2017-03-23] MEDS ORDERED: guaiFENesin ER PO (10:21)
--- NOTE | 2017-03-23 10:25 | HHI.DCPOC ---
Discharge Care Plan Diagnosis: (1) Hx of CABG (2) Acute worsening of stage 3 chronic kidney disease (3) Hyperosmolality and hypernatremia (4) Hypokalemia (5) NSTEMI (non-ST elevated myocardial infarction) (6) CAD (coronary artery disease) (7) Coagulopathy (8) Anemia (9) GI bleed Your Health Problems Are: Shortness of Breath Goals to Promote Your Health * To prevent worsening of your condition and complications * To maintain your health at the optimal level Directions to Meet Your Goals Take your medications as prescribed Follow your dietary instruction Follow activity as directed Keep your appointments as scheduled Take your immunizations and boosters as scheduled If your symptoms worsen call your PCP, if no PCP go to Urgent Care Center or Emergency Room Smoking is Dangerous to Your Health. Avoid second hand smoke Call the 24-hour hour crisis hotline for domestic abuse at Nasim Padron DO Mar 23, 2017 10:25
--- NOTE | 2017-03-23 10:27 | HHI.DS ---
Discharge Summary Admission Date Mar 15, 2017 at 19:54 Discharge Date: Mar 23, 2017 Admitting Diagnosis Anemia, GI bleed, coagulopathy, NSTEMI (1) Acute worsening of stage 3 chronic kidney disease ICD Code: N18.3 - Chronic kidney disease, stage 3 (moderate) Diagnosis: Secondary (2) CAD (coronary artery disease) ICD Code: I25.10 - Atherosclerotic heart disease of [place] coronary artery without angina pectoris Diagnosis: Secondary (3) NSTEMI (non-ST elevated myocardial infarction) ICD Code: I21.4 - Non-ST elevation (NSTEMI) myocardial infarction Diagnosis: Secondary Status: Acute (4) Anemia ICD Code: D64.9 - Anemia, unspecified Diagnosis: Secondary Status: Acute (5) Hx of CABG ICD Code: Z95.1 - Presence of aortocoronary bypass graft Diagnosis: Secondary (6) Hyperosmolality and hypernatremia ICD Code: E87.0 - Hyperosmolality and hypernatremia Diagnosis: Secondary (7) Hypokalemia ICD Code: E87.6 - Hypokalemia Diagnosis: Secondary (8) GI bleed ICD Code: K92.2 - Gastrointestinal hemorrhage, unspecified Diagnosis: Principal Status: Acute (9) Coagulopathy ICD Code: D68.9 - Coagulation defect, unspecified Status: Acute Procedures 9-1 s/p EGD found large ulcer, esophagitis, gastritis. path benign. Brief History - From Admission 76-year-old male who is brought in from residential due to diarrhea and generalized weakness. Patient does have some underlying dementia, but is able to say that he is just feeling overall weak. He has been having some diarrhea. Denies any pain at this time. He says he does not know if he has been taking any antibiotics. He denies any abdominal pain. He has not had any nausea or vomiting. Patient denies melanotic or bloody stool however in the emergency department he was noticed to have a tarry black stool. His hemoglobin was found to be 5 and his INR more than 17. He has received FFP's, Kcentra and was started on blood transfusions. CBC/BMP: 03/23/17 0756 03/23/17 0756 Significant Findings Laboratory Tests Test 03/20/17 14:15 03/21/17 06:34 03/22/17 07:03 03/23/17 07:56 Prothrombin Time 12.6 SEC (9.8-11.6) 12.5 SEC (9.8-11.6) Red Blood Count 2.66 MIL/MM3 (4.50-5.90) 3.50 MIL/MM3 (4.50-5.90) 3.48 MIL/MM3 (4.50-5.90) Hemoglobin 7.8 GM/DL (13.0-17.0) 10.3 GM/DL (13.0-17.0) 10.4 GM/DL (13.0-17.0) Hematocrit 23.8 % (39.0-51.0) 31.1 % (39.0-51.0) 31.4 % (39.0-51.0) Red Cell Distribution Width 18.7 % (11.6-17.2) 17.6 % (11.6-17.2) 17.8 % (11.6-17.2) Neutrophils (%) (Auto) 77.8 % (16.0-70.0) 80.3 % (16.0-70.0) 79.9 % (16.0-70.0) Lymphocytes # (Auto) 0.9 TH/MM3 (1.0-4.8) 0.8 TH/MM3 (1.0-4.8) 0.8 TH/MM3 (1.0-4.8) Blood Urea Nitrogen 31 MG/DL (7-18) 31 MG/DL (7-18) 29 MG/DL (7-18) Creatinine 1.99 MG/DL (0.60-1.30) 2.03 MG/DL (0.60-1.30) 2.13 MG/DL (0.60-1.30) Random Glucose 123 MG/DL (74-106) 129 MG/DL (74-106) 143 MG/DL (74-106) Total Protein 5.0 GM/DL (6.4-8.2) 5.5 GM/DL (6.4-8.2) 5.7 GM/DL (6.4-8.2) Albumin 2.0 GM/DL (3.4-5.0) 2.3 GM/DL (3.4-5.0) 2.1 GM/DL (3.4-5.0) Calcium Level 7.7 MG/DL (8.5-10.1) 7.8 MG/DL (8.5-10.1) 7.6 MG/DL (8.5-10.1) Chloride Level 113 MEQ/L (98-107) 111 MEQ/L (98-107) 111 MEQ/L (98-107) Carbon Dioxide Level 19.8 MEQ/L (21.0-32.0) Estimat Glomerular Filtration Rate 33 ML/MIN (>89) 32 ML/MIN (>89) 30 ML/MIN (>89) Thyroid Stimulating Hormone 3rd Gen 4.210 uIU/ML (0.358-3.740) Monocytes (%) (Auto) 8.1 % (0.0-8.0) Alkaline Phosphatase 133 U/L (45-117) 158 U/L (45-117) Potassium Level 3.3 MEQ/L (3.5-5.1) Aspartate Amino Transf (AST/SGOT) 11 U/L (15-37) Imaging Last Impressions Renal Ultrasound 03/16/17 0000 Signed Impressions: Service Date/Time: Thursday, March 16, 2017 13:26 - CONCLUSION: Negative for stone, mass or obstruction. Nasim Ramsay MD FACR Head CT 03/15/17 1800 Signed Impressions: Service Date/Time: Wednesday, March 15, 2017 18:21 - CONCLUSION: 1. No acute intracranial hemorrhage. 2. 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 3. Bilateral cortical atrophy. Chadd Vásquez MD Chest X-Ray 03/15/17 1800 Signed Impressions: Service Date/Time: Wednesday, March 15, 2017 18:02 - CONCLUSION: No acute disease. Chadd Vásquez MD PE at Discharge GENERAL: Awake alert and talkative and cooperative tolerating a diet at this time SKIN: Warm and dry. HEAD: Atraumatic. Normocephalic. EYES: Pupils equal and round. No scleral icterus. No injection or drainage. Extraocular muscles grossly intact ENT: No nasal bleeding or discharge. Mucous membranes pink and moist. Tongue is midline NECK: Trachea midline. No JVD. Neck is supple CARDIOVASCULAR: Regular rate and rhythm. S1-S2 no S3 or S4 no heave or thrill or rub or gallop RESPIRATORY: No accessory muscle use. Clear to auscultation. Breath sounds equal bilaterally. GASTROINTESTINAL: Abdomen soft, non-tender, nondistended. Hepatic and splenic margins not palpable. MUSCULOSKELETAL: Extremities without clubbing, cyanosis, or edema. No obvious deformities. NEUROLOGICAL: Awake and alert. No obvious cranial nerve deficits. Motor grossly within normal limits. 4 out of 5 muscle strength in the arms and legs. Normal speech. PSYCHIATRIC: Appropriate mood and affect; insight and judgment normal. Hospital Course s/p EGD found large ulcer, esophagitis, gastritis. path benign. Much more awake and alert slowly improving according to son Discussed with patient and RN and son Has had diet and is tolerating it well Needs physical therapy and occupational therapy Hopefully home in the next 24-48 hours will probably need home health versus SNF PT and OT to eval and treat A.m. labs May need home health care 9-4 WILL TRANSFUSE PATIENT DW RN AND PT AND SON AM LABS INCREASE ACTIVITY 9-5 HAD TRANSFUSIONS YESTERDAY HGB AT 10 NOW DW RN AND PT AND FAMILY LIVES IN [facility], MAY NEED REHAB SNF WANTS [facility] STILL VERY WEAK REPLACE HYPOKALEMIA AM LABS 9-6 ACCEPTED AT [facility] DW CARDIO [id number] PO DAILY DW RN AND PT AND SON DC TO SNF TODAY Pt Condition on Discharge: Good Discharge Disposition: Discharge to SNF Discharge Time: > 30 minutes Discharge Instructions DIET: Follow Instructions for: Heart Healthy Diet, Diabetic Diet Speech Therapy-Diet Recommends: Regular Activities you can perform: Regular-No Restrictions Follow up Referrals: Cardiology - 2 Weeks with Jong Davis DO Gastroenterology - 2 Weeks with Lisa Pandya MD Nephrology - 2 Weeks with Sagar Mayfield MD New Medications: Acetaminophen (Eq Acetaminophen) 325 Mg Tab 650 MG PO Q6H PRN for PAIN 1-10 AND/OR FEVER >101F, #[address] (Adult Aspirin EC Low Strength) 81 Mg Tabec 81 MG PO DAILY for Blood Clot Prevention, #30 TAB Ipratropium-Albuterol Neb (Duoneb) 0.5-2.5 Mg/3 Ml Neb 1 AMPULE NEB Q4HR NEB for Shortness of Breath, #180 ML Ipratropium-Albuterol Neb (Duoneb) 0.5-2.5 Mg/3 Ml Neb 1 AMPULE NEB Q2HR NEB PRN for SHORTNESS OF BREATH, #180 ML Pantoprazole (Pantoprazole) 40 Mg Tab 40 MG PO BIDAC for Manage Heartburn, #60 TAB [guaiFENesin ER] () 600 MG TABCR 600 MG PO BID for Cough, #60 TAB Continued Medications: Albuterol 8.5 GM Inh (Proair Hfa 8.5 GM Inh) 90 Mcg/Act Aer 1 PUFF INH Q4H PRN for SHORTNESS OF BREATH, #1 INHALER 0 Refills 108 mcg/actuation Carvedilol (Carvedilol) 3.125 Mg Tab 3.125 MG PO BID, #60 TAB 0 Refills Ferrous Sulfate (Iron) 325 Mg Cap 325 MG PO DAILY for Nutritional Supplement, #30 TAB 0 Refills Furosemide (Lasix) 40 Mg Tab 40 MG PO DAILY, #30 TAB 0 Refills Hydroxyzine Pamoate (Hydroxyzine Pamoate) 25 Mg Cap 25 MG PO Q6H PRN for ANXIETY, CAP 0 Refills Levothyroxine (Levothyroxine) 50 Mcg Tab 50 MCG PO DAILY for Thyroid, #30 TAB 0 Refills Loperamide (Loperamide) 2 Mg Cap 2 MG PO DIRECTED PRN for DIARRHEA, CAP 0 Refills One capsule after each loose stool. Not to exceed 8 capsules per day. Mirtazapine (Mirtazapine) 15 Mg Tab 15 MG PO HS for Depression Control, #30 TAB 0 Refills Multiple Vitamins W/ Iron (Daily-Juan Carlos/Iron/Beta-Antonio) 1 Tab Tab 1 TAB PO DAILY Potassium Chloride ER (Potassium Chloride ER) 20 Meq Tab 20 MEQ PO DAILY for Electrolyte Replacement, #30 TAB 0 Refills Ranitidine (Ranitidine) 150 Mg Tab 150 MG PO DAILY for Heartburn Management, #30 TAB 0 Refills Sertraline (Sertraline) 25 Mg Tab 25 MG PO DAILY, #30 TAB 0 Refills Discontinued Medications: Ipratropium-Albuterol Neb (Duoneb) 0.5-2.5 Mg/3 Ml Neb 1 NEBULE INH Q12HR for Breathing Treatment, #30 NEBULE 0 Refills Lisinopril (Lisinopril) 2.5 Mg Tab 2.5 MG PO DAILY, #30 TAB 0 Refills Sertraline (Sertraline) 50 Mg Tab 50 MG PO DAILY, #30 TAB 0 Refills Sucralfate (Sucralfate) 1 Gram Tab 1 GM PO BID for Duodenal ulcer, #90 TAB 0 Refills on empty stomach Warfarin (Warfarin) 6 Mg Tab 6 MG PO DAILY for Blood Clot Prevention, #30 TAB 0 Refills Nasim Padron DO Mar 23, 2017 10:27
--- NOTE | 2017-03-23 11:07 | PD.CARD.PN ---
Subjective Subjective Remarks No events overnight No chest pain/SOB Objective Medications Current Medications Medications (Trade) Dose Ordered Sig/Teodoro Route Start Time Stop Time Status Last Admin (NS Flush) 2 ml UNSCH PRN .XX 03/15/17 23:30 (NS Flush) 2 ml BID .XX 03/16/17 09:00 03/23/17 08:25 (Tylenol) 650 mg Q6H PRN PO 03/15/17 23:30 03/21/17 12:40 (Morphine Inj) 2 mg Q2H PRN IV 03/15/17 23:30 (Zofran Inj) 4 mg Q6H PRN IV 03/15/17 23:30 03/17/17 21:16 (Ambien) 5 mg HS PRN PO 03/15/17 23:30 Miscellaneous Information 1 Q361D XX 03/15/17 23:30 (Chlorhexidine 2% Cloth) Taper DAILY@04 TOP 03/16/17 04:00 03/12/18 03:59 03/18/17 03:20 (Chlorhexidine 2% Cloth) 3 pack UNSCH PRN TOP 03/15/17 23:30 (Andria-Colace) 1 tab BID PO 03/16/17 09:00 03/23/17 08:21 (Milk Of Magnesia Liq) 30 ml Q12H PRN PO 03/15/17 23:30 (Senokot) 17.2 mg Q12H PRN PO 03/15/17 23:30 (Dulcolax Supp) 10 mg DAILY PRN RECTAL 03/15/17 23:30 (Lactulose Liq) 30 ml DAILY PRN PO 03/15/17 23:30 (Synthroid) 25 mcg DAILY@0600 PO 03/16/17 06:00 03/23/17 05:58 (D50w (Vial) Inj) 50 ml UNSCH PRN IV 03/16/17 11:00 (Glucagon Inj) 1 mg UNSCH PRN OTHER 03/16/17 11:00 (NovoLIN R SUPPLEMENTAL SCALE) 1 ACHS SLIDING SCALE SQ 03/16/17 11:00 03/22/17 16:54 (Coreg) 3.125 mg Q12HR PO 03/18/17 21:00 03/23/17 08:21 (Protonix) 40 mg BIDAC PO 03/20/17 07:00 9/6/17 05:58 (Mucinex Er) 600 mg BID PO 03/20/17 09:00 03/23/17 08:21 (Duoneb Neb) 1 ampule Q4HR NEB NEB 03/21/17 12:00 03/23/17 08:56 (Duoneb Neb) 1 ampule Q2HR NEB PRN NEB 03/21/17 10:00 Iron Sucrose 100 mg/Sodium Chloride 105 ml @ 105 mls/hr DAILY IV 03/21/17 11:00 03/25/17 09:59 03/23/17 08:22 (Ecotrin Ec) 81 mg DAILY PO 03/24/17 09:00 Vital Signs / I&O Vital Signs Date Time Temp Pulse Resp B/P (MAP) Pulse Ox O2 Delivery O2 Flow Rate FiO2 03/23/17 08:00 95.5 77 20 139/71 (93) 96 03/23/17 07:47 81 03/23/17 04:00 73 03/23/17 04:00 97.4 74 17 126/65 (85) 98 03/23/17 00:00 66 03/23/17 00:00 97.9 69 18 127/70 (89) 97 03/22/17 20:00 97.9 76 18 129/62 (84) 95 03/22/17 20:00 72 03/22/17 16:24 77 03/22/17 16:06 99 Nasal Cannula 2.00 03/22/17 16:00 99.3 76 18 139/69 (92) 98 03/22/17 12:30 98.1 85 18 132/75 (94) 98 03/22/17 11:56 98 Nasal Cannula 2.00 I/O 03/22/17 03/22/17 03/22/17 03/23/17 03/23/17 03/23/17 06:59 14:59 22:59 06:59 14:59 22:59 Intake Total 270 ml 630 ml 150 ml 105 ml Output Total 3550 ml 950 ml 200 ml 650 ml Balance -3280 ml -320 ml -200 ml -500 ml 105 ml Intake Oral 630 ml 150 ml IV Total 105 ml Packed Cells 250 ml Blood Product IV Normal Saline Flush 20 ml Output Urine Total 3550 ml 950 ml 200 ml 650 ml # Bowel Movements 1 1 Physical Exam GENERAL: NAD, alert and awake SKIN: Warm and dry. HEAD: Atraumatic. Normocephalic. EYES: Pupils equal and round. No scleral icterus. No injection or drainage. ENT: No nasal bleeding or discharge. Mucous membranes pink and moist. NECK: Trachea midline. No JVD. CARDIOVASCULAR: Regular rate and rhythm. RESPIRATORY: No accessory muscle use. Clear to auscultation. Breath sounds equal bilaterally. GASTROINTESTINAL: Abdomen soft, non-tender, nondistended. Hepatic and splenic margins not palpable. MUSCULOSKELETAL: Extremities without clubbing, cyanosis, or edema. No obvious deformities. NEUROLOGICAL: Awake and alert. No obvious cranial nerve deficits. Motor grossly within normal limits. Five out of 5 muscle strength in the arms and legs. Normal speech. PSYCHIATRIC: Appropriate mood and affect; insight and judgment normal. Laboratory Laboratory Tests Test 03/23/17 07:56 White Blood Count 8.5 TH/MM3 Red Blood Count 3.48 MIL/MM3 Hemoglobin 10.4 GM/DL Hematocrit 31.4 % Mean Corpuscular Volume 90.2 FL Mean Corpuscular Hemoglobin 29.8 PG Mean Corpuscular Hemoglobin Concent 33.1 % Red Cell Distribution Width 17.8 % Platelet Count 171 TH/MM3 Mean Platelet Volume 7.9 FL Neutrophils (%) (Auto) 79.9 % Lymphocytes (%) (Auto) 9.7 % Monocytes (%) (Auto) 7.5 % Eosinophils (%) (Auto) 2.2 % Basophils (%) (Auto) 0.7 % Neutrophils # (Auto) 6.8 TH/MM3 Lymphocytes # (Auto) 0.8 TH/MM3 Monocytes # (Auto) 0.6 TH/MM3 Eosinophils # (Auto) 0.2 TH/MM3 Basophils # (Auto) 0.1 TH/MM3 CBC Comment DIFF FINAL Differential Comment Blood Urea Nitrogen 29 MG/DL Creatinine 2.13 MG/DL Random Glucose 143 MG/DL Total Protein 5.7 GM/DL Albumin 2.1 GM/DL Calcium Level 7.6 MG/DL Phosphorus Level 3.1 MG/DL Magnesium Level 2.0 MG/DL Alkaline Phosphatase 158 U/L Aspartate Amino Transf (AST/SGOT) 11 U/L Alanine Aminotransferase (ALT/SGPT) 25 U/L Total Bilirubin 0.7 MG/DL Sodium Level 144 MEQ/L Potassium Level 3.6 MEQ/L Chloride Level 111 MEQ/L Carbon Dioxide Level 24.1 MEQ/L Anion Gap 9 MEQ/L Estimat Glomerular Filtration Rate 30 ML/MIN Assessment and Plan Problem List: (1) GI bleed ICD Codes: K92.2 - Gastrointestinal hemorrhage, unspecified Status: Acute (2) Anemia ICD Codes: D64.9 - Anemia, unspecified Status: Acute (3) Coagulopathy ICD Codes: D68.9 - Coagulation defect, unspecified Status: Acute (4) NSTEMI (non-ST elevated myocardial infarction) ICD Codes: I21.4 - Non-ST elevation (NSTEMI) myocardial infarction Status: Acute (5) CAD (coronary artery disease) ICD Codes: I25.10 - Atherosclerotic heart disease of [place] coronary artery without angina pectoris (6) Hx of CABG ICD Codes: Z95.1 - Presence of aortocoronary bypass graft Assessment and Plan 1) Elevated troponin, most likely Type 2 due to Hbg being in the 5s 2) No further workup for NSTEMI due to GI Bleed 3) EGD per GI team Showing esophageal ulcer, Protonix BID 4) Discussed with primary, will place on ASA 81mg daily and con't PPI 5) Coreg 6) Cardiovascularly stable for discharge to SNF Problem Qualifiers (1) GI bleed: Qualified Codes: K92.2 - Gastrointestinal hemorrhage, unspecified (2) Anemia: Qualified Codes: D62 - Acute posthemorrhagic anemia Jong Davis DO Mar 23, 2017 11:07
[2017-03-23 12:00] VITALS: BP 131/71; PULSE 62; RESP 18; TEMP 96.9; O2SAT 100
--- NOTE | 2017-03-23 13:38 | HHI.NPPN ---
Subjective Renal Failure: Acute Interval History He is anticipating discharge today. Creatinine slightly worse but overall stable. No patient concerns. (Pretty Burgos) Review of Systems General Constitutional: Fatigue (Pretty Burgos) Objective Data Data 03/23/17 03/24/17 19:00 07:00 Intake Total 345 ml Output Total 350 ml Balance -5 ml Intake Oral 240 ml IV Total 105 ml Output Urine Total 350 ml # Bowel Movements 1 Vital Signs Date Time Temp Pulse Resp B/P (MAP) Pulse Ox O2 Delivery O2 Flow Rate FiO2 03/23/17 12:00 96.9 62 18 131/71 (91) 100 03/23/17 08:00 95.5 77 20 139/71 (93) 96 03/23/17 07:47 81 03/23/17 04:00 73 03/23/17 04:00 97.4 74 17 126/65 (85) 98 03/23/17 00:00 66 03/23/17 00:00 97.9 69 18 127/70 (89) 97 03/22/17 20:00 97.9 76 18 129/62 (84) 95 03/22/17 20:00 72 03/22/17 16:24 77 03/22/17 16:06 99 Nasal Cannula 2.00 03/22/17 16:00 99.3 76 18 139/69 (92) 98 (Pretty Burgos) -: 03/23/17 0756 03/23/17 0756 Physical Exam General Appearance: Well Developed, No Acute Distress, Comfortable (Pretty Burgos) Eyes Eye Exam: Pupils Equal (Pretty Burgos) Throat Throat Exam: Oral Mucosa [place] & Moist (Pretty Burgos) Pulmonary Resp Exam: Clear Bilaterally, Breath Sounds Equal, No Distress, Decreased Bases (Pretty Burgos) Cardiology CV Exam: Regular, Normal Sinus Rhythm (Pretty Burgos) Gastrointestinal/Abdomen GI Exam: Soft, Non-Tender, Bowel Sounds Present, Distended (Pretty Burgos) Extremeties Extremities Exam: Trace Edema (Pretty Burgos) Neurologic Neuro Exam: Alert, Awake, Oriented (Pretty Burgos) Psychiatric Psych Exam: Appropriate Responses (Pretty Burgos) Assessment/Plan Problem List: (1) Acute worsening of stage 3 chronic kidney disease ICD Codes: N18.3 - Chronic kidney disease, stage 3 (moderate) Plan: may have underlying stage III CKD, however baseline renal function is not known. ELIZABETH due to dehydration, improved with IVF renal function is overall stable he is tolerating oral fluids stable for discharge advised to avoid NSAIDs increase water intake (2) Hypokalemia ICD Codes: E87.6 - Hypokalemia Plan: corrected (3) Hyperosmolality and hypernatremia ICD Codes: E87.0 - Hyperosmolality and hypernatremia Plan: Improved. (4) Anemia ICD Codes: D64.9 - Anemia, unspecified Status: Acute Plan: blood loss anemia, improved. given IV venofer (5) Coagulopathy ICD Codes: D68.9 - Coagulation defect, unspecified Status: Acute Plan: improved. Due to Warfarin. (6) GI bleed ICD Codes: K92.2 - Gastrointestinal hemorrhage, unspecified Status: Acute Plan: GI following. Plan cleared for discharge (Pretty Burgos) Plan patient was seen and examined. Agree with above assessment and plan. Likely has underlying CKD, and current GFR may be his baseline. (Sagar Mayfiedl MD) Problem Qualifiers (1) Anemia: Qualified Codes: D62 - Acute posthemorrhagic anemia (2) GI bleed: Qualified Codes: K92.2 - Gastrointestinal hemorrhage, unspecified Pretty Burgos Mar 23, 2017 13:38 Sagar Mayfield MD Mar 23, 2017 22:26
[2017-03-24] MEDS ORDERED: ASPIRIN EC 81 MG TABEC PO SCH (09:00)
== END 2017-03-23 13:34 | DRG 377 ==
LOC: PHED 17:47 → PHEDA 19:54 → HIME 23:10 → HOCB 03-18 03:05
PROVIDERS: ADMIT Hospitalist; ATTEND Hospitalist
PROC: 30233N1 Transfusion of Nonautologous Red Blood Cells into Peripheral Vein, Percutaneous Approach (ICD-10-PCS; 2017-03-15)
PROC: 30233K1 Transfusion of Nonautologous Frozen Plasma into Peripheral Vein, Percutaneous Approach (ICD-10-PCS; 2017-03-16)
PROC: 0DB48ZX Excision of Esophagogastric Junction, Via Natural or Artificial Opening Endoscopic, Diagnostic (ICD-10-PCS; principal; 2017-03-17 12:07)
DX: K92.2 Gastrointestinal hemorrhage, unspecified (principal); I21.4 Non-ST elevation (NSTEMI) myocardial infarction; N17.9 Acute kidney failure, unspecified; E87.0 Hyperosmolality and hypernatremia; K22.10 Ulcer of esophagus without bleeding; D62 Acute posthemorrhagic anemia; I50.22 Chronic systolic (congestive) heart failure; J44.9 Chronic obstructive pulmonary disease, unspecified; I12.9 Hypertensive chronic kidney disease with stage 1 through stage 4 chronic kidney disease, or unspecified chronic kidney disease; N18.3 Chronic kidney disease, stage 3 (moderate); F03.90 Unspecified dementia, unspecified severity, without behavioral disturbance, psychotic disturbance, mood disturbance, and anxiety; T45.515A Adverse effect of anticoagulants, initial encounter; Z86.711 Personal history of pulmonary embolism; Z79.01 Long term (current) use of anticoagulants; I25.10 Atherosclerotic heart disease of native coronary artery without angina pectoris; Z95.1 Presence of aortocoronary bypass graft; F32.9 Major depressive disorder, single episode, unspecified; K21.9 Gastro-esophageal reflux disease without esophagitis; E87.6 Hypokalemia; E03.9 Hypothyroidism, unspecified; E11.9 Type 2 diabetes mellitus without complications; Z86.73 Personal history of transient ischemic attack (TIA), and cerebral infarction without residual deficits
CPT/HCPCS: 36430; 51702; 70450; 71010; 76775; 76937; 80048; 80053; 81001; 82550; 82570; 82728; 82948; 83036; 83540; 83550; 83605; 83735; 84100; 84300; 84439; 84443; 84484; 85025; 85027; 85384; 85610; 85730; 86850; 86900; 86901; 86920; 86927; 87205; 87493; 87641; 88305; 88312; 93005; 93306; 94640; 94664; 96372; C9113; C9132; J1756; J1940; J2405; J3430; J7030; J7040; J7050; J7613; P9016; P9017